=== PATIENT | male | born 1950 | race Caucasian/White ===

== ENCOUNTER → 2016-12-23 | Outpatient (REF) | payer MEDICARE ==
[~2016-12-23] MED LIST: DARV100T OR; FURO40TA2 OR; IBUP800T OR; NABU750T OR; SILD25TA OR
== END ==
LOC: M SFHCADAM 14:14
PROVIDERS: ATTEND Physician Assistant Medical
DX: R73.01 Impaired fasting glucose (principal); E66.01 Morbid (severe) obesity due to excess calories; R60.1 Generalized edema; M54.5 Low back pain; Z53.9 Procedure and treatment not carried out, unspecified reason

== ENCOUNTER → 2017-01-20 | Outpatient (REF) | payer MEDICARE ==
[2017-01-20 13:00] LABS: BASO % 0.4 % (0.0-1.0); EOS # 0.2 K/mm3 (0.0-0.50); EOS % 3.3 % (0.0-3.0); LARGE UNSTAINED CELL # 0.1 K/mm3 (0.0-0.4); LYMPH # 1.8 K/mm3 (1.5-4.5); LYMPH % 29.6 % (24.0-44.0); MEAN CORPUSCULAR HEMOGLOBIN 32.1 pg (27.0-33.0); MEAN CORPUSCULAR HGB CONC 33.6 g/dl (32.0-36.5); MEAN CORPUSCULAR VOLUME 95.6 fl (80.0-96.0); MONO # 0.5 K/mm3 (0.0-0.8); MONO % 8.4 % (0.0-5.0); NEUTROPHILS # 3.1 K/mm3 (1.8-7.7); NEUTROPHILS % 56.3 % (36.0-66.0); PLATELET COUNT, AUTOMATED 257 k/mm3 (150-450); RED CELL DISTRIBUTION WIDTH 13.3 % (11.5-14.5); WHITE BLOOD COUNT 5.6 K/mm3 (4.0-10.0)
[2017-01-20 13:37] LABS: ALBUMIN 3.7 GM/DL (3.2-5.2); ALBUMIN/GLOBULIN RATIO 1.19 (1.00-1.93); ALKALINE PHOSPHATASE 167 U/L (45-117); ALT/SGPT 44 U/L (12-78); ANION GAP 8 MEQ/L (8-16); AST/SGOT 16 U/L (15-37); BILIRUBIN,TOTAL 0.4 MG/DL (0.2-1.0); BLOOD UREA NITROGEN 13 MG/DL (7-18); CALCIUM LEVEL 8.6 MG/DL (8.8-10.2); CARBON DIOXIDE LEVEL 27 MEQ/L (21-32); CHLORIDE LEVEL 99 MEQ/L (98-107); CREATININE FOR GFR 0.71 MG/DL (0.70-1.30); GLOMERULAR FILTRATION RATE > 60.0 (>49); GLUCOSE, FASTING 217 MG/DL (80-110); POTASSIUM SERUM 4.3 MEQ/L (3.5-5.1); SODIUM LEVEL 134 MEQ/L (136-145); TOTAL PROTEIN 6.8 GM/DL (6.4-8.2)
== END ==
LOC: M SFHCADAM 09:01
PROVIDERS: ATTEND Physician Assistant Medical
DX: R73.01 Impaired fasting glucose (principal); E66.01 Morbid (severe) obesity due to excess calories; R60.1 Generalized edema; M54.5 Low back pain

== ENCOUNTER → 2017-03-17 | Outpatient (REF) | payer MEDICARE | LOC: M LABDRWAD 09:52 | PROVIDERS: ATTEND Urology | DX: C61 Malignant neoplasm of prostate (principal) ==

== ENCOUNTER → 2017-09-23 | Outpatient (REF) | payer MEDICARE, OTHER ==
[2017-09-23 20:15] LABS: PROSTATIC SPECIFIC AG MONITOR 0.75 NG/ML (< 4.0)
== END ==
LOC: M LABDRWAD 19:26
DX: C67.2 Malignant neoplasm of lateral wall of bladder (principal)
CPT/HCPCS: 84153

== ENCOUNTER → 2018-01-05 | Outpatient (REF) | payer MEDICARE | LOC: M SFHCADAM 15:38 | DX: E11.9 Type 2 diabetes mellitus without complications (principal); E78.2 Mixed hyperlipidemia; Z53.8 Procedure and treatment not carried out for other reasons ==

== ENCOUNTER → 2018-02-18 | Outpatient (REF) | payer MEDICARE | LOC: M SFHCADAM 08:33 | DX: E11.9 Type 2 diabetes mellitus without complications (principal); I10 Essential (primary) hypertension; E78.2 Mixed hyperlipidemia ==

== ENCOUNTER → 2018-02-19 | Outpatient (REF) | payer MEDICARE ==
[2018-02-19 12:54] LABS: BASO % 0.4 % (0.0-1.0); EOS # 0.2 10^3/uL (0.0-0.50); EOS % 2.2 % (0.0-3.0); HEMATOCRIT 42.5 % (42.0-52.0); HEMOGLOBIN 14.3 g/dl (13.5-17.5); IMMATURE GRANULOCYTE % 0.4 % (0-3.0); LYMPH # 1.2 10^3/uL (1.5-4.5); LYMPH % 16.2 % (24.0-44.0); MEAN CORPUSCULAR HEMOGLOBIN 31.6 pg (27.0-33.0); MEAN CORPUSCULAR HGB CONC 33.6 g/dl (32.0-36.5); MONO # 0.8 10^3/uL (0.0-0.8); MONO % 11.3 % (0.0-5.0); NEUTROPHILS # 5.1 10^3/uL (1.8-7.7); NEUTROPHILS % 69.5 % (36.0-66.0); PLATELET COUNT, AUTOMATED 248 10^3/uL (150-450); RED BLOOD COUNT 4.52 10^6/uL (4.30-6.10); RED CELL DISTRIBUTION WIDTH 12.1 % (11.5-14.5); WHITE BLOOD COUNT 7.4 10^3/uL (4.0-10.0)
[2018-02-19 13:44] LABS: ALBUMIN 3.8 GM/DL (3.2-5.2); ALBUMIN/GLOBULIN RATIO 1.27 (1.00-1.93); ALKALINE PHOSPHATASE 89 U/L (45-117); ALT/SGPT 57 U/L (12-78); ANION GAP 8 MEQ/L (8-16); AST/SGOT 22 U/L (7-37); BILIRUBIN,TOTAL 0.3 MG/DL (0.2-1.0); BLOOD UREA NITROGEN 18 MG/DL (7-18); CALCIUM LEVEL 8.9 MG/DL (8.8-10.2); CARBON DIOXIDE LEVEL 27 MEQ/L (21-32); CHLORIDE LEVEL 104 MEQ/L (98-107); CHOLESTEROL LEVEL 133 MG/DL (<200); CREATININE FOR GFR 0.83 MG/DL (0.70-1.30); GLOMERULAR FILTRATION RATE > 60.0 (>49); GLUCOSE, FASTING 126 MG/DL (70-100); HDL CHOLESTEROL 48 MG/DL (>40); MALB URINE SIEMENS 23.6 MG/L; MAU/CREAT RATIO 16.8 MCG/MG (0.0-30.0); NON-HDL-C 85 MG/DL; POTASSIUM SERUM 4.9 MEQ/L (3.5-5.1); SODIUM LEVEL 139 MEQ/L (136-145); TOTAL PROTEIN 6.8 GM/DL (6.4-8.2); TRIGLYCERIDES LEVEL 95 MG/DL (<150)
[2018-02-19 15:34] LABS: ESTIMATED AVERAGE GLUCOSE 160 MG/DL (60-110); HEMOGLOBIN A1c 7.2 %
== END ==
LOC: M SFHCADAM 12:46
DX: E11.9 Type 2 diabetes mellitus without complications (principal); E78.2 Mixed hyperlipidemia
CPT/HCPCS: 84443

== ENCOUNTER → 2018-02-24 | Outpatient (CLI) | payer MEDICARE | LOC: M ADAMS 15:51 | DX: M19.012 Primary osteoarthritis, left shoulder (principal); M25.712 Osteophyte, left shoulder; M25.512 Pain in left shoulder | CPT/HCPCS: 73030 ==

== ENCOUNTER → 2018-03-20 | Outpatient (REF) | payer MEDICARE | LOC: M SFHCPLAZ 15:41 | DX: D22.39 Melanocytic nevi of other parts of face (principal) | CPT/HCPCS: 88305 ==

== ENCOUNTER → 2018-07-06 | Outpatient (REF) | payer MEDICARE ==
[2018-07-06 13:07] LABS: ALBUMIN 3.7 GM/DL (3.2-5.2); ALT/SGPT 50 U/L (12-78); BILIRUBIN,TOTAL 0.3 MG/DL (0.2-1.0); BLOOD UREA NITROGEN 14 MG/DL (7-18); CALCIUM LEVEL 8.5 MG/DL (8.8-10.2); CARBON DIOXIDE LEVEL 28 MEQ/L (21-32); CHLORIDE LEVEL 104 MEQ/L (98-107); CHOLESTEROL LEVEL 153 MG/DL (<200); CREATININE FOR GFR 0.72 MG/DL (0.70-1.30); GLOMERULAR FILTRATION RATE > 60.0 (>49); GLUCOSE, FASTING 130 MG/DL (70-100); HDL CHOLESTEROL 51 MG/DL (>40); LDL CHOLESTEROL 81 MG/DL (<100); NON-HDL-C 102 MG/DL; POTASSIUM SERUM 4.8 MEQ/L (3.5-5.1); SODIUM LEVEL 140 MEQ/L (136-145); TOTAL PROTEIN 6.5 GM/DL (6.4-8.2); TRIGLYCERIDES LEVEL 103 MG/DL (<150)
[2018-07-06 14:07] LABS: HEMOGLOBIN A1c 8.4 %
== END ==
LOC: M SFHCADAM 08:33
PROVIDERS: ATTEND Physician Assistant Medical
DX: E11.9 Type 2 diabetes mellitus without complications (principal); E78.2 Mixed hyperlipidemia

== ENCOUNTER → 2018-12-07 | Outpatient (REF) | payer MEDICARE | LOC: M LAB REF 12:22 | PROVIDERS: ATTEND Urology | DX: Z12.5 Encounter for screening for malignant neoplasm of prostate (principal); C67.2 Malignant neoplasm of lateral wall of bladder ==

== ENCOUNTER → 2019-02-15 | Outpatient (REF) | payer MEDICARE, SELFPAY ==
[2019-02-15 12:27] LABS: BASO % 0.3 % (0.0-1.0); EOS # 0.2 10^3/uL (0.0-0.50); EOS % 1.9 % (0.0-3.0); HEMATOCRIT 42.4 % (42.0-52.0); LYMPH # 1.3 10^3/uL (1.5-4.5); MEAN CORPUSCULAR HEMOGLOBIN 30.6 pg (27.0-33.0); MEAN CORPUSCULAR VOLUME 92.8 fl (80.0-96.0); MONO # 0.9 10^3/uL (0.0-0.8); MONO % 9.2 % (0.0-5.0); NEUTROPHILS # 7.6 10^3/uL (1.8-7.7); PLATELET COUNT, AUTOMATED 285 10^3/uL (150-450); RED BLOOD COUNT 4.57 10^6/uL (4.30-6.10); WHITE BLOOD COUNT 10.1 10^3/uL (4.0-10.0)
[2019-02-15 13:03] LABS: ALBUMIN 3.8 GM/DL (3.2-5.2); ALT/SGPT 45 U/L (12-78); BILIRUBIN,TOTAL 0.3 MG/DL (0.2-1.0); BLOOD UREA NITROGEN 13 MG/DL (7-18); CARBON DIOXIDE LEVEL 28 MEQ/L (21-32); CHLORIDE LEVEL 105 MEQ/L (98-107); CHOLESTEROL LEVEL 152 MG/DL (<200); CREATININE FOR GFR 0.76 MG/DL (0.70-1.30); GLOMERULAR FILTRATION RATE > 60.0 (>49); GLUCOSE, FASTING 148 MG/DL (70-100); HDL CHOLESTEROL 51 MG/DL (>40); LDL CHOLESTEROL 74 MG/DL (<100); NON-HDL-C 101 MG/DL; POTASSIUM SERUM 4.7 MEQ/L (3.5-5.1); SODIUM LEVEL 139 MEQ/L (136-145); TOTAL PROTEIN 6.7 GM/DL (6.4-8.2); TRIGLYCERIDES LEVEL 136 MG/DL (<150)
[2019-02-15 13:14] LABS: CREATININE, URINE 26.9 MG/DL; MALB URINE SIEMENS < 5.0 MG/L; MAU/CREAT RATIO 18.5 MCG/MG (0.0-30.0)
[2019-02-15 13:45] LABS: HEMOGLOBIN A1c 7.9 %
== END ==
LOC: M SFHCADAM 09:56
PROVIDERS: ATTEND Physician Assistant Medical
DX: E11.9 Type 2 diabetes mellitus without complications (principal); I10 Essential (primary) hypertension; E78.2 Mixed hyperlipidemia

== ENCOUNTER → 2019-12-20 | Outpatient (REF) | payer MEDICARE | LOC: M LABDRWAD 16:51 | PROVIDERS: ATTEND Urology | DX: C67.2 Malignant neoplasm of lateral wall of bladder (principal) ==

== ENCOUNTER → 2020-03-02 | Outpatient (REF) | payer MEDICARE ==
[2020-03-02 18:17] LABS: BASO % 0.3 % (0.0-1.0); EOS # 0.2 10^3/uL (0.0-0.5); EOS % 1.9 % (0.0-3.0); HEMATOCRIT 45.8 % (42.0-52.0); HEMOGLOBIN 15.3 g/dl (13.5-17.5); LYMPH # 1.2 10^3/uL (1.5-5.0); LYMPH % 14.4 % (24.0-44.0); MEAN CORPUSCULAR HEMOGLOBIN 32.5 pg (27.0-33.0); MEAN CORPUSCULAR HGB CONC 33.4 g/dl (32.0-36.5); MEAN CORPUSCULAR VOLUME 97.2 fl (80.0-96.0); MONO # 0.9 10^3/uL (0.0-0.8); MONO % 10.5 % (0.0-5.0); NEUTROPHILS # 6.2 10^3/uL (1.5-8.5); NEUTROPHILS % 72.2 % (36.0-66.0); PLATELET COUNT, AUTOMATED 295 10^3/uL (150-450); RED BLOOD COUNT 4.71 10^6/uL (4.30-6.10); WHITE BLOOD COUNT 8.6 10^3/uL (4.0-10.0)
[2020-03-02 18:46] LABS: CREATININE, URINE 87.3 MG/DL; MALB URINE SIEMENS 9.2 MG/L; MAU/CREAT RATIO 10.5 MCG/MG (0.0-30.0)
[2020-03-02 18:50] LABS: ALBUMIN 3.8 GM/DL (3.2-5.2); ALT/SGPT 45 U/L (12-78); BILIRUBIN,TOTAL 0.3 MG/DL (0.2-1.0); BLOOD UREA NITROGEN 18 MG/DL (7-18); CALCIUM LEVEL 8.8 MG/DL (8.8-10.2); CARBON DIOXIDE LEVEL 27 MEQ/L (21-32); CHLORIDE LEVEL 103 MEQ/L (98-107); CHOLESTEROL LEVEL 251 MG/DL (<200); CHOLESTEROL RISK RATIO 5.976 (<5); CREATININE FOR GFR 1.09 MG/DL (0.70-1.30); GLOMERULAR FILTRATION RATE > 60.0 (>42); GLUCOSE, FASTING 353 MG/DL (70-100); HDL CHOLESTEROL 42 MG/DL (>40); LDL CHOLESTEROL 139 MG/DL (<100); NON-HDL-C 209 MG/DL; POTASSIUM SERUM 4.6 MEQ/L (3.5-5.1); SODIUM LEVEL 136 MEQ/L (136-145); TRIGLYCERIDES LEVEL 351 MG/DL (<150)
[2020-03-02 19:46] LABS: HEMOGLOBIN A1c 9.6 %
== END ==
LOC: M LABDRWAD 15:45
PROVIDERS: ATTEND Physician Assistant Medical
DX: E11.9 Type 2 diabetes mellitus without complications (principal); I10 Essential (primary) hypertension

== ENCOUNTER → 2020-03-31 | Outpatient (CLI) | payer MEDICARE ==
--- NOTE | 2020-04-10 09:57 | REP ---
RIGHT HIP SERIES: 2-VIEWS HISTORY: Right hip pain. FINDINGS: AP and frog leg views of the right hip demonstrate chondrocalcinosis and mild acetabular spurring consistent with osteoarthritis. There is also tendon insertion site spurring of the greater trochanter. No bony erosive change is seen. The visualized right hemipelvis is intact. IMPRESSION: Right hip osteoarthritis. Chondrocalcinosis. Tendon insertion site spurring on the greater trochanter. MTDD
== END ==
LOC: M ADAMS 09:32
PROVIDERS: ATTEND Family Medicine
DX: M16.11 Unilateral primary osteoarthritis, right hip (principal); M11.251 Other chondrocalcinosis, right hip; M25.551 Pain in right hip

== ENCOUNTER → 2020-04-20 | Outpatient (REF) | payer MEDICARE ==
[2020-04-21 13:11] LABS: BASO % 0.5 % (0.0-1.0); EOS # 0.2 10^3/uL (0.0-0.5); EOS % 2.5 % (0.0-3.0); HEMATOCRIT 44.5 % (42.0-52.0); HEMOGLOBIN 14.5 g/dl (13.5-17.5); LYMPH # 1.1 10^3/uL (1.5-5.0); MEAN CORPUSCULAR HEMOGLOBIN 31.5 pg (27.0-33.0); MEAN CORPUSCULAR HGB CONC 32.6 g/dl (32.0-36.5); MEAN CORPUSCULAR VOLUME 96.5 fl (80.0-96.0); MONO # 0.8 10^3/uL (0.0-0.8); MONO % 10.6 % (0.0-5.0); NEUTROPHILS # 5.4 10^3/uL (1.5-8.5); NEUTROPHILS % 70.7 % (36.0-66.0); PLATELET COUNT, AUTOMATED 337 10^3/uL (150-450); RED BLOOD COUNT 4.61 10^6/uL (4.30-6.10); WHITE BLOOD COUNT 7.6 10^3/uL (4.0-10.0)
[2020-04-21 13:42] LABS: C REACTIVE PROTEIN QUANTITATIV 0.52 MG/DL (0.00-0.30); RHEUMATOID FACTOR QUANT < 10.0 IU/ML (<15.0)
[2020-04-21 13:52] LABS: ERYTHROCYTE SEDIMENTATION RATE 8 mm/hr (0-20)
[2020-04-22 17:06] LABS: ANTINUCLEAR ANTIBODIES DIRECT Negative (Negative); Lyme Disease IgG/IgM Antibodie <0.91 ISR (0.00-0.90); Lyme Disease IgM Ab Quantitati <0.80 index (0.00-0.79)
== END ==
LOC: M SFHCADAM 15:21
PROVIDERS: ATTEND Family Medicine
DX: M19.90 Unspecified osteoarthritis, unspecified site (principal); Z79.899 Other long term (current) drug therapy

== ENCOUNTER → 2020-07-07 | Outpatient (REF) | payer MEDICARE | LOC: M SFHCADAM 12:27 | PROVIDERS: ATTEND Physician Assistant Medical | DX: J34.89 Other specified disorders of nose and nasal sinuses (principal); Z11.52 Encounter for screening for COVID-19 ==

== ENCOUNTER → 2020-09-05 | Outpatient (REF) | payer MEDICARE ==
[2020-09-05 18:56] LABS: HEMOGLOBIN A1c 7.7 %
== END ==
LOC: M PLALAB 16:43 → M LAB REF 16:43
PROVIDERS: ATTEND Nurse Practitioner Adult Health
DX: E11.9 Type 2 diabetes mellitus without complications (principal); M25.551 Pain in right hip

== ENCOUNTER → 2021-01-02 | Outpatient (REF) | payer MEDICARE | LOC: M LABDRWAD 12:35 | PROVIDERS: ATTEND Urology | DX: C67.2 Malignant neoplasm of lateral wall of bladder (principal); R97.20 Elevated prostate specific antigen [PSA] ==

== ENCOUNTER → 2021-03-16 | Outpatient (CLI) | payer MEDICARE ==
--- NOTE | 2021-03-16 16:41 | REP ---
INDICATION: RT HIP OSTEOARTHRITIS. COMPARISON: He has 03/31/2020 TECHNIQUE: AP and frog-lateral views. FINDINGS: Since the last examination advanced asymmetric joint space narrowing has developed. In addition, there is new femoral head flattening superolaterally. There is a 2.3 cm sized subchondral area of rarefication also representing a change from the prior exam. The femoral head appears superolaterally subluxed. IMPRESSION: New right hip abnormalities as described above. There is evidence of a large geode seen versus AVN in an acute or subacute stage. This needs to be correlated clinically. Consider follow-up with MRI. <Electronically signed by Channing Oliveira > 03/16/21 3509
== END ==
LOC: M SOG 15:35
PROVIDERS: ATTEND Orthopaedic Surgery Sports Medicine
DX: R93.7 Abnormal findings on diagnostic imaging of other parts of musculoskeletal system (principal); M16.11 Unilateral primary osteoarthritis, right hip

== ENCOUNTER → 2021-03-20 | Outpatient (REF) | payer MEDICARE ==
[2021-03-20 19:28] LABS: BASO % 0.3 % (0.0-1.0); EOS # 0.1 10^3/uL (0.0-0.5); EOS % 1.4 % (0.0-3.0); HEMATOCRIT 40.3 % (42.0-52.0); HEMOGLOBIN 12.8 g/dl (13.5-17.5); LYMPH # 1.4 10^3/uL (1.5-5.0); LYMPH % 15.1 % (24.0-44.0); MEAN CORPUSCULAR HGB CONC 31.8 g/dl (32.0-36.5); MEAN CORPUSCULAR VOLUME 94.4 fl (80.0-96.0); MONO # 1.2 10^3/uL (0.0-0.8); MONO % 13.2 % (2.0-8.0); NEUTROPHILS # 6.5 10^3/uL (1.5-8.5); NEUTROPHILS % 69.4 % (36.0-66.0); PLATELET COUNT, AUTOMATED 358 10^3/uL (150-450); RED BLOOD COUNT 4.27 10^6/uL (4.30-6.10); WHITE BLOOD COUNT 9.3 10^3/uL (4.0-10.0)
[2021-03-20 19:40] LABS: HEMOGLOBIN A1c 7.2 %
[2021-03-20 19:46] LABS: POTASSIUM SERUM 4.8 MEQ/L (3.5-5.1)
== END ==
LOC: M LABDRWAD 18:39
PROVIDERS: ATTEND Orthopaedic Surgery
DX: M16.11 Unilateral primary osteoarthritis, right hip (principal); Z79.899 Other long term (current) drug therapy

== ENCOUNTER → 2021-04-03 | Outpatient (CLI) | payer MEDICARE ==
--- NOTE | 2021-04-03 16:21 | REP ---
INDICATION: OSTEOARTHRITIS. COMPARISON: None. TECHNIQUE: AP and lateral views of the pelvis FINDINGS: Right hip demonstrates early advanced degenerative changes including subchondral sclerosis/heterogeneity with small cystic changes and complete loss of the superior joint space with subtle chronic flattening to the femoral head. Lateral view also demonstrates advanced multilevel degenerative changes to the lumbar spine with osteophytosis, endplate sclerosis, hypertrophic facet changes and disc space narrowing. Alignment is maintained. No obvious acute fracture/compression injury. IMPRESSION: Degenerative changes primarily involving the right hip and lumbar spine. <Electronically signed by Efrain Harmon > 04/03/21 1242
== END ==
LOC: M SOG 11:58
PROVIDERS: ATTEND Orthopaedic Surgery
DX: M16.11 Unilateral primary osteoarthritis, right hip (principal)

== ENCOUNTER → 2021-05-04 | Outpatient (CLI) | payer MEDICARE ==
[~2021-05-04] MED LIST changes: +ACET32TAB PO; +APAP325T4 PO; +BIOT1TAB PO; +CHRO400T4 PO; +CIDA500T2 PO; +CINN500C15 PO; +CLAR10CA3 PO; +D31000TA2 PO; +ECOT81TA5 PO; +FLUTISP OU; +GLIP5TAB8 PO; +LISI-898 PO; +MAGN1CAP PO; +METF10004 PO; +OXYC1TAB23; +RA T500C2 PO; +RANI15TA PO; +SIMV40TA20 PO; +TAMS1CAP17 PO; +VITATAB64 PO; +ZINC1TAB2 PO
--- NOTE | 2021-05-04 18:05 | REP ---
INDICATION: RT HIP PAIN. COMPARISON: Hip and pelvis radiographs 03/16/2021, 04/03/2021 TECHNIQUE: Leadership Development Manager image of the pelvis through the mid tibia in AP and lateral projections. Axial soft tissue and bone window settings the through the pelvis with coronal and sagittal reconstructions. Soft tissue and bone window axial images with coronal and sagittal reconstructions through the knees. (Mauro protocol). FINDINGS: NON OSSEOUS PELVIS: Small bowel loops fluid-filled and not dilated diverticulosis distal left colon and sigmoid without diverticulitis. Bladder only partially filled but without mass or stone. No ventral or inguinal hernia. No pelvic lymphadenopathy or free fluid prostate with calcifications in indenting the bladder base no ventral or inguinal hernia nor pathologic sized inguinal adenopathy. OSSEOUS PELVIS: There is severe osteoarthritis of the right hip with [id number] appearance. Large subchondral cysts and flattening of femoral head with smaller cysts in the acetabulum at its roof and posterior margin. Few mm of the lateral subluxation with uncovering of portion of the femoral head. Femoral neck and trochanteric region as well as proximal shaft were intact. The left hip shows minimal narrowing of the joint space and small rim osteophyte acetabular roof and femoral condyle there are only a few tiny subchondral cysts in the anterior acetabular column. No AVN or fracture on the left. Pubic symphysis, pubic rami, SI joints, iliac bones and sacrum without fracture or destructive lesion. Bilateral total knee arthroplasty is are seen the it network architect image. Distances for surgical planning may be measured on the it network architect image. IMPRESSION: 1. Severe osteoarthritic changes the right hip with [id number]-[id number] appearance and extensive subchondral cysts and flattening of the femoral head consistent with some degree of avascular necrosis. No intra-articular bone fragments are identified but irregular osteophyte formation seen. Superior subchondral cysts in the acetabulum and a few in the anterior and posterior column as well. 2. Left hip with mild degenerative changes, age-appropriate. 3. Bilateral total knee arthroplasty. Leadership Development Manager image frontal and CIS lateral projections allowed for measurement of femur length and other information necessary for surgical planning. <Electronically signed by Joe Pa > 05/04/21 2448
== END ==
LOC: M RAD 16:14
PROVIDERS: ATTEND Orthopaedic Surgery
DX: M16.11 Unilateral primary osteoarthritis, right hip (principal); Z96.653 Presence of artificial knee joint, bilateral

== ENCOUNTER → 2021-05-11 | Outpatient (CLI) | payer MEDICARE | LOC: M LABSMTC 11:23 | PROVIDERS: ATTEND Anesthesiology | DX: Z01.818 Encounter for other preprocedural examination (principal); Z11.52 Encounter for screening for COVID-19 ==

== ENCOUNTER 2021-05-16 06:08 | Day surgery (SDC) | payer MEDICARE ==
[~2021-05-16] VITALS: Ht 175.3 cm; Wt 107.5 kg
[2021-05-16] VITALS (8 sets, daily range): BP systolic 14–146; BP diastolic 64–93
[~2021-05-16 06:08] MED LIST changes: +**UNRESOLVED NON-FORMULARY MED ORDER XX SCH; +CelecoXIB (CeleBREX) 100 MG CAP PO SCH; +FLUTISP NARES; -FLUTISP OU; +GABAPENTIN 100 MG CAP PO SCH; +LR 1,000 ML IV ONE; -OXYC1TAB23; +OXYC1TAB23 PO; +ceFAZolin SOD 2 GM in IV 1 EA IV SCH
--- OUTSIDE RECORDS SUMMARY | 2021-05-16 06:12 | CCD ---
Author Author [employer] Organization [employer] Address Unknown Phone Unavailable Care Team Providers Care Concrete Sculptor Name Role Phone Melvin Pelayo Unavailable PROBLEMS Type Condition ICD9-CM Code [id number] Code Onset Dates Condition S tatus W/U Status Risk SNOMED Code Notes Problem Chronic low back pain M54.5 Active confirmed 456006537 Problem History of bladder cancer Z85.51 Active confirmed 403459885 Problem Other chronic pain G89.29 Active confirmed 8 0920227 Problem Generalized edema R60.1 Active confirmed 27 4228894 Problem Type 2 diabetes mellitus wit hout complication, without long-term current use of insulin E11.9 Active confirmed 602819711 Problem Hip arthritis M16.10 Active confirmed 577149 06 Problem Morbid obesity due to excess calories E66.01 Ac tive confirmed 272571935 Problem Seasonal allergies J30.2 Active confirmed 4 60149930 Problem Arthritis M19.90 Active confirmed 8624749 Problem Essential hypertension I10 Active confirmed 89022808 Problem Mixed hyperlipidemia E78.2 Active confirmed 434052011 Problem Acrochordon L91.8 Active confirmed 82469549 2 Problem Seborrheic keratoses L82.1 Active confirmed 859306898 ALLERGIES Allergen (clinical drug ingredient) Drug/Non Drug Allergy do cumented on EMR Reaction Allergy Type Onset Date Status Codeine Phosphate (For Allergies Use Only) Unknown Drug Allergy Active ENCOUNTERS from 1950 to 2021-05-15 Encounter Location Date Provider Diagnosis [facility] [address] [facility] [phone] [place] [address] 10 Apr, 2021 Melvin Pelayo Pre-op exam Z01.818 ; Type 2 diabetes mellitus without complication, without long-term current use of insulin E11.9 and Hip arthritis M16.10 IMMUNIZATIONS Vaccine Route Administration Date Status Influenza (High Dose 65 & up) IM Intramuscular Apr 22, 2017 A dministered Influenza (High Dose 65 & up) IM Intramuscular Apr 11, 2016 A dministered Pneumococcal Adult 0.5mL Pneumovax 23 IM Intramuscular Jul 15 018 Administered TDAP 0.5mL (Boostrix) IM Intramuscular January 02, 2016 Administe red TDAP 0.5mL (Boostrix) Unknown Jul 04, 2004 Administer ed Pneumococcal 0.5mL Prevnar 13 IM Intramuscular September 23, 2016 A dministered SOCIAL HISTORY Sex Assigned At : Social History Observation Description Sex Assigned At Unknown Education: Question Answer Notes Level of Education: Patient declines to answer Audit Question Answer Notes Total Score: 1 Interpretation: Alcohol Education Language: Question Answer Notes Languages spoken: Gibraltarian Faith: Question Answer Notes Faith 06 Scientologist Sexual Hx: Question Answer Notes Had sex in the last 12 months (vaginal, oral, or anal)? Yes with Women only Use protection? No Drug and Alcohol Question Answer Notes Total Score: 0 Interpretation: No problems reported BMI Care Goal Follow-Up Question Answer Notes Above Normal BMI Follow-Up Dietary management educatio n, guidance, and counseling REASON FOR REFERRAL No Information VITAL SIGNS Weight 238.4 lbs Apr, Height 5'9" in Apr, BMI 35.20 kg/m2 Apr, Heart Rate 84 /min Apr, Respiratory Rate 18 /min Apr, Temperature 96.1 degrees Fahrenheit Apr, Oximetry 99 Apr, Blood pressure systolic 104 mm Hg Apr, Blood pressure diastolic 67 mm Hg Apr, MEDICATIONS Medication SIG (Take, Route, Frequency, Duration) Notes Start Da te End Date Status Vitamin D3 10 MCG (400 UNIT) 1 tablet Orally Once a day for 30 day(s) UNSURE OF DOSE - OTC Active metFORMIN HCl 1000 1 tablet with meals Orally Twice a day for 90 Active Lisinopril 5 MG 2 tablets Orally twice daily for 90 Active Viagra 50 MG 1 tablet as needed Orally Once a day for 30 day(s) Active Glucosamine 500 MG 1 capsule with a meal Orally Twice a day UNSURE OF DOSE - OTC Active traMADol-Acetaminophen 37.5-325 MG 2 tablets as needed Orally every 8 hrs as needed MDD 6 for 30 days Sep, Not-Reji ing Amoxicillin 875 MG 1 tablet Orally every 12 hrs for 14 day(s) Sep, Not-Taking Ibuprofen 200 MG 2 tablet with food or milk as needed Ora lly Three times a day Active Chromium 50 MCG as directed Orally UNSURE OF DOSE - OTC Active Amoxicillin-Pot Clavulanate 875-125 MG 1 tablet Orally every 12 hrs for 10 day(s) Jan, Not-Taking Magnesium 300 MG 1 capsule with a meal Orally Once a day for 30 day(s) UNSURE OF DOSE - OTC Active Fluticasone Propionate 50 MCG/ACT 1 spray in each nost ril Nasally Once a day for 30 Not-Taking FreeStyle Lancets - as directed DX:E11.9 three times daily for 30 day s Active glipiZIDE 5 MG TAKE 1 TABLET BY MOUTH EVERY DAY 30 MINUTES BEFORE BREAKFAST for 90 Active FreeStyle Lite Test - as directed DX:E11.9 three times daily for 30 d ays Active predniSONE 20 MG 1 tablet Orally Once a day for 10 day(s) Jan, Not-Taking Simvastatin 40 MG 1 tablet in the evening Orally Once a day for 90 da ys Active Nabumetone 750 MG 1 tablet Orally Twice a day for 90 Not-Taking FreeStyle Lite - as directed DX:E11.9 once daily for 100 days Jun, Active One touch ultra blue Misc 1 strip _ E11.9, 2-3 times daily Active Doxycycline Monohydrate 100 MG 1 tablet Orally Twice a day for 7 days Apr, Not-Taking Zinc 25 MG 1 tablet Orally Once a day for 30 day(s) UNSURE OF DOSE - OTC Active FreeStyle Lancets - USE DIRECTED THREE TIMES A DAY for 66 Active Fluticasone Propionate 50 MCG/ACT 1 spray in each nost ril Nasally Once a day for 30 day(s) Twice a day for first week then daily Mar, Active FreeStyle Lite Test - USE DIRECTED THREE TIMES A DAY for 66 Active Lasix 40 MG 1 tablet Orally Once a day as needed for 90 days Active Tamsulosin HCl 0.4 MG 1 capsule Orally Once a day for 90 days Active oxyCODONE-Acetaminophen 5-325 MG 1-2 tablet as needed Orally every 6 hrs for 30 days Apr, Active PROCEDURES No Information RESULTS No Results REASON FOR VISIT right total hip arthroplasty MEDICAL (GENERAL) HISTORY Type Description Date Medical History arthritis- low back, hands, feet Medical History morbid obesity Medical History DM2, 2018 last eye exam Medical History h/o cuca dep Medical History h/o adenocarcinoma of the bladder 2012 - Uro Medical History BPH Medical History HTN, 07/18 EKG SR, borderline T wave abn. Medical History hyperlipidemia Surgical History Right knee arthroscopy & reconstruction 1973,1982, & 199102/23/1974 Surgical History Bladder resection 07/20/2013 Surgical History Right testicular hydrocele repair 009 Surgical History Right total knee replacement 09/24/2010 Surgical History Left total knee replacement 10/08/2011 Surgical History Teeth extraction X2 2019 Goals Section No Information Health Concerns No Information MEDICAL EQUIPMENT No Information MENTAL STATUS No Information FUNCTIONAL STATUS No Information ASSESSMENTS Encounter Date Diagnosis Assessment Notes Treatment Notes Treatm ent Clinical Notes Apr, Pre-op exam (ICD-10 - Z01.818) Patient preop for Right total hip arthroplasty. Cardiovascular: Able to perform 4 METS without any symptoms, chest pain, shortness of breath. Patient's overal cardiac risk low and surgery low cardiac risk. No further recommendations at this time. Respiratory: No history of asthma/ COPD, inhaler use. No further recommendations at this time. Renal: No history of chronic kidney disease/ renal disease. No further recommendations at this time. Pysch: Denies any feeling down/ depressed, loss of interest. No history of depression. No further recommendations at this time. Medications: Discussed holding lisinopril, glipizide, metformin and lasix the day of surgery. Hold viagra a couple days prior to surgery. Unless otherwise noted by surgeon. No further recommendations at this time. Labs/ tests: Had CBC and CMP performed. Hgb stable, 13.2, no anemia at this time. Creatinine stable, 0.86. Electrolytes within normal limits. No further recommendations at this time. Chronic pain: Is on oxycodone/ aceteminophen for chronic hip pain. Continue with medication at this time. May need to monitor pain following surgery. No further recommendations at this time. Patient has been optimized for sugery at this time. Apr, Type 2 diabetes mellitus wit hout complication, without long-term current use of insulin (ICD-10 - E11.9) A1c is 7.2%. Continue current treatment plan at this time. Monitoring diet after June. If he can avoid or have snack with low carbohydrate content may help with evening sugar levels. If eating sugar levels do not improve may consider adjusting medication by adding half glipizide tablet in the evening. Continue current diet otherwise. Continue otherwise current medication. Goal may be 7% for surgery per surgeon. Apr, Hip arthritis (ICD-10 - M16.10) Continue using oxycodone 1 to 2 tablets as needed for pain. Has surgery scheduled. Discussed to taper lower after surgery. PLAN OF TREATMENT Medication Medication Name Sig Start Date Stop Date Tamsulosin HCl 0.4 MG 1 capsule Orally Once a day for 90 days oxyCODONE-Acetaminophen 5-325 MG 1-2 tablet as needed Orally every 6 hrs for 30 days Apr, FreeStyle Lite Test - as directed DX:E11.9 three times daily for 30 days FreeStyle Lancets - as directed DX:E11.9 three times daily for 3 0 days Treatment Notes Assessment Notes Clinical Notes Pre-op exam Patient preop for Ri ght total hip arthroplasty.Cardiovascular: Able to perform 4 METS without any symptoms, chest pain, shortness of breath. Patient's overal cardiac risk low and surgery low cardiac risk. No further recommendations at this time.Respiratory: No history of asthma/ COPD, inhaler use. No further recommendations at this time.Renal: No history of chronic kidney disease/ renal disease. No further recommendations at this time.Pysch: Denies any feeling down/ depressed, loss of interest. No history of depression. No further recommendations at this time.Medications: Discussed holding lisinopril, glipizide, metformin and lasix the day of surgery. Hold viagra a couple days prior to surgery. Unless otherwise noted by surgeon. No further recommendations at this time.Labs/ tests: Had CBC and CMP performed. Hgb stable, 13.2, no anemia at this time. Creatinine stable, 0.86. Electrolytes within normal limits. No further recommendations at this time.Chronic pain: Is on oxycodone/ aceteminophen for chronic hip pain. Continue with medication at this time. May need to monitor pain following surgery. No further recommendations at this time.Patient has been optimized for sugery at this time. Type 2 diabetes mellitus without complic ation, without long-term current use of insulin A1c is 7.2%. Continue curre nt treatment plan at this time. Monitoring diet after June. If he can avoid or have snack with low carbohydrate content may help with evening sugar levels. If eating sugar levels do not improve may consider adjusting medication by adding half glipizide tablet in the evening. Continue current diet otherwise. Continue otherwise current medication. Goal may be 7% for surgery per surgeon. Hip arthritis Continue using oxyco done 1 to 2 tablets as needed for pain. Has surgery scheduled. Discussed to taper lower after surgery. Pending Tests Test Name Order Date CBC with Differential 2021-05-09 Comprehensive Metabolic Profile (CMP) 2021-05-09 ELECTROCARDIOGRAM, COMPLETE EKG 2021-05-09 Next Appt Details prn Reason: Insurance Providers Payer Name Payer Address Payer Phone Insured Name Patient Relati onship to Insured Coverage Start Date Coverage End Date MEDICARE BLUE O [phone] [address] [employer] SMART self
--- OUTSIDE RECORDS SUMMARY | 2021-05-16 06:12 | CCD | Continuity of Care Document ---
Author Author Saud LEON MD Organization Unknown Address [address] [place] [address] , [facility] [address] [place] [address] Phone [phone] Care Team Providers Care Metal Sander Name Role Phone Gilles Yanez M.D. AUTM [phone] Melvin Pelayo D.O. AUTM [phone] AUTM Unavailable Problems Description No Active Problems Social History Type Date Description Comments Sex Unknown ETOH Use 1 A Day Tobacco Use Start: Unknown Non Smoker Recreational Drug Use Denies Drug Use Smoking Status Reviewed: 04/03/21 Non Smoker Allergies and adverse reactions Active Allergies Criticality Reaction | Severity Comments Date Codeine Unable to assess criticality 08/15/2014 Medications Active Medications SIG Qnty Indications Ordering Provide r Date Aspirin 81mg Tablets 1 by mouth every day Unknown Lasix 40mg Tablets 1 tabs daily for fluid retention Unknown Ibuprofen 200mg Tablets as ne eded Unknown Tamsulosin HCL 0.4mg Capsules by mouth daily Unknown Oxycodone-Acetaminophen 5-325mg Tablets Melvin Pelayo D.O. Glipizide 5mg Tablets Take 1 Tablet By Mouth Every Day 30 Minutes Before Breakfast Melvin Ramos D.O. Freestyle Lite Test Strips Melvin ePlayo D.O. Simvastatin 40mg Tablets Take 1 Tablet By Mouth Every Day In The Evening Sandi Olvera R. P.ADino Sildenafil Citrate 100mg Tablets Take 1 Tablet By Mouth Every Day as Needed Silvestre Lopez M.D. Metformin HCL 1000mg Tablets Take 1 Tablet By Mouth Twice Daily With Meals Sandi Olvera R .P.A. Immunizations Description No Information Available Vital Signs Date Vital Result Comment 04/03/2021 11:18am Body Temperature 97.5 F 10/04/2014 3:51pm BP Systolic 150 mmHg BP Diastolic 80 mmHg Height 70 inches 5'10" Weight 250.00 lb BMI (Body Mass Index) 35.9 kg/m2 [place] Body Weight 166 lb Weight 113.400 kg BSA (Body Surface Area) 2.29 m2 Results Description No Information Available Procedures Date Code Description Status 03/20/2021 59963 Office/Outpatient Established Mo d MDM 30-39 Min Completed 03/16/2021 80687 Office/Outpatient New Moderate M DM 45-59 Minutes Completed 03/16/2021 50620 Inject/Drain Arthrocentesis Hanh r Joint/Bursa/Ganglion Cyst Completed Medical Devices Description No Information Available Encounters Type Date Location Provider Dx Diagnosis Office Visit 03/20/2021 10:30a [facility] Luz Gan DO M16.11 Unilateral primary osteoarthritis, right hip Office Visit 03/16/2021 3:00p [facility] Ted Leon MD M75.42 Impingement syndrome of left shoulder Assessments Date Code Description Provider 04/03/2021 M16.11 Unilateral primary osteoarthriti s, right hip Marv Gan DO 03/20/2021 M16.11 Unilateral primary osteoarthriti s, right hip Marv Gan, 03/16/2021 M75.42 Impingement syndrome of left [place] ulder Ted Leon MD Plan of Treatment Future Appointment(s):* 04/27/2021 1:30 pm - Ted Leon MD at [facility] 04/03/2021 - Marv Gan DO* M16.11 Unilateral primary osteoarthritis, right hip* Comments:* 1. Consent for right total hip arthroplasty2. Consent for blood transfusion if needed3. Arrange for medical clearance and repeat blood work before surgery .4. If we proceeded with medical will need preoperative medical CT. Functional Status Description No Information Available Mental Status Description No Information Available Referrals Refer to Dr Reason for Referral Status Appt Date Estephania Wheatley RD, CDN, Cde Preop right total hip repla cement. Type 2 diabetes. Diet controlled Sent [facility] [address] [place], [place] [id number] [phone] Marv Raymond, DO right hip pain ? replacement Closed 03/20/2021 [address] [facility] [place] [address] [phone]
--- OUTSIDE RECORDS SUMMARY | 2021-05-16 06:12 | CCD | Continuity of Care Document ---
Author Author Saud HOUGH DO Organization Unknown Address [address] [place] [address] Phone [phone] Care Team Providers Care Inbound Sales Advisor Name Role Phone Gilles Yanez M.D. AUTM [phone] Melvin Pelayo D.O. AUTM [phone] AUTM Unavailable Problems Description No Active Problems Social History Type Date Description Comments Sex Unknown ETOH Use 1 A Day Tobacco Use Start: Unknown Non Smoker Recreational Drug Use Denies Drug Use Smoking Status Reviewed: 04/03/21 Non Smoker Allergies and adverse reactions Active Allergies Criticality Reaction | Severity Comments Date Giselle Unable to assess criticality 08/15/2014 Medications Active [...] Ramos D.O. Freestyle Lite Test Strips Melvin Pelayo D.O. Simvastatin 40mg Tablets Take 1 Tablet By Mouth Every Day In The Evening Sandi Olvera R. P.Ciro Sildenafil Citrate 100mg Tablets Take 1 Tablet By Mouth Every Day as Needed Silvestre Lopez M.D. Metformin HCL 1000mg Tablets Take 1 Tablet By Mouth Twice Daily With Meals May, Sandi, R .P.A. Immunizations Description No Information Available Vital Signs Date Vital Result Comment 04/03/2021 11:18am Body Temperature 97.5 F 10/04/2014 3:51pm BP Systolic 150 mmHg BP Diastolic 80 mmHg Height 70 inches 5'10" Weight 250.00 lb BMI (Body Mass Index) 35.9 kg/m2 [place] Body Weight 166 lb Weight 113.400 kg BSA (Body Surface Area) 2.29 m2 Results Description No Information Available Procedures Date Code Description Status 03/20/2021 70289 Office/Outpatient Established Mo d MDM 30-39 Min Completed 03/16/2021 46536 Office/Outpatient New Moderate M DM 45-59 Minutes Completed 03/16/202146967 Inject/Drain Arthrocentesis Hanh r Joint/Bursa/Ganglion Cyst Completed Medical Devices Description No Information Available Encounters Type Date Location Provider Dx Diagnosis Office Visit 03/20/2021 10:30a [facility] Luz Hough DO M16.11 Unilateral primary osteoarthritis, right hip Assessments Date Code Description Provider 04/03/2021 M16.11 Unilateral primary osteoarthriti s, right hip Marv Hough DO 03/20/2021 M16.11 Unilateral primary osteoarthriti s, right hip Marv Hough DO 03/16/2021 M75.42 Impingement syndrome of left [place] chao Chadwick MD Plan of Treatment Future Appointment(s):* 04/27/2021 1:30 pm - Ted Chadwick MD at [facility] 04/03/2021 - Marv Hough DO* M16.11 Unilateral primary osteoarthritis, right hip* New Xrays:* XR Pelvis 1 Or 2 Views, Ordered: 04/03/21 * XR Hip 2-3 Views Right, Ordered: 04/03/21 * Comments:* 1. Consent for right total hip [...] cement. Type 2 diabetes. Diet controlled [facility] [place] [address] [place] [address] [phone] Marv Raymond, DO right hip pain ? replacement Closed 03/20/2021 [address] [facility] [place] [address] [phone]
--- OUTSIDE RECORDS SUMMARY | 2021-05-16 06:12 | CCD ---
Author Author [facility] Organization [facility] Address Unknown Phone Unavailable Care Team Providers Care Risk Control Manager Name Role Phone Melvin Pelayo Unavailable PROBLEMS Type Condition ICD9-CM Code VCM87-LT Code Onset Dates Condition S tatus W/U Status Risk SNOMED Code Notes Problem Chronic low back pain M54.5 Active confirmed 949046807 Problem History of bladder cancer Z85.51 Active confirmed 913297214 Problem Other chronic pain G89.29 Active confirmed 8 8448725 Problem Generalized edema R60.1 Active confirmed 27 9766332 Problem Type 2 diabetes mellitus wit hout complication, without long-term current use of insulin E11.9 Active confirmed 670976815 Problem Hip arthritis M16.10 Active confirmed 415891 06 Problem Morbid obesity due to excess calories E66.01 Ac tive confirmed 811032719 Problem Seasonal allergies J30.2 Active confirmed 4 64819693 Problem Arthritis M19.90 Active confirmed 3109938 Problem Essential hypertension I10 Active confirmed 77371188 Problem Mixed hyperlipidemia E78.2 Active confirmed 509043901 Problem Acrochordon L91.8 Active confirmed 53524487 2 Problem Seborrheic keratoses L82.1 Active confirmed 762448381 ALLERGIES Allergen (clinical drug ingredient) Drug/Non Drug Allergy do cumented on EMR Reaction Allergy Type Onset Date Status Codeine Phosphate (For Allergies Use Only) Unknown Drug Allergy Active ENCOUNTERS from 1950 to 2021-04-05 Encounter Location Date Provider Diagnosis [facility] [address] [facility] [phone] [address] Mar, 2021 Melvin Pleayo IMMUNIZATIONS Vaccine Route Administration Date Status Influenza [...] Education Language: Question Answer Notes Languages spoken: Uruguayan Restorationist: Question Answer Notes Restorationist 06 Gnosticist Sexual Hx: Question Answer Notes Had sex in the last 12 months (vaginal, oral, or anal)? Yes with Women only Use protection? No Drug and Alcohol Question Answer Notes Total Score: 0 Interpretation: No problems reported BMI Care Goal Follow-Up Question Answer Notes Above Normal BMI Follow-Up Dietary management educatio n, guidance, and counseling REASON FOR REFERRAL No Information VITAL SIGNS No information MEDICATIONS Medication SIG (Take, Route, Frequency, Duration) Notes Start Da te End Date Status Lasix 40 MG 1 tablet Orally Once a day as needed for 90 days Active Simvastatin 40 MG 1 tablet in the evening Orally Once a day for 90 da ys Active FreeStyle Lite - as directed DX:E11.9 once daily for 100 days Jun, Active glipiZIDE 5 MG TAKE 1 TABLET BY MOUTH EVERY DAY 30 MINUTES BEFORE BREAKFAST for 90 Active metFORMIN HCl 1000 1 tablet with meals Orally Twice a day for 90 Active traMADol-Acetaminophen 37.5-325 MG 2 tablets as needed Orally every 8 hrs as needed MDD 6 for 30 days Sep, Not-Reji ing oxyCODONE-Acetaminophen 5-325 MG 1-2 tablet as needed Orally every 6 hrs for 30 days Active FreeStyle Lancets - USE DIRECTED THREE TIMES A DAY for 66 Active FreeStyle Lancets - as directed DX:E11.9 three times daily for 30 day s Active Fluticasone Propionate 50 MCG/ACT 1 spray in each nost ril Nasally Once a day for 30 day(s) Twice a day for first week then daily Mar, Active Tamsulosin HCl 0.4 MG 1 capsule Orally Once a day for 90 days Active Amoxicillin 875 MG 1 tablet Orally every 12 hrs for 14 day(s) Sep, Not-Taking predniSONE 20 MG 1 tablet Orally Once a day for 10 day(s) Jan, Not-Taking Viagra 50 MG 1 tablet as needed Orally Once a day for 30 day(s) Active Ibuprofen 200 MG 2 tablet with food or milk as needed Ora lly Three times a day Active Lisinopril 5 MG 2 tablets Orally twice daily for 90 Not-Taking One touch ultra blue Misc 1 strip _ E11.9, 2-3 times daily Active FreeStyle Lite Test - as directed DX:E11.9 three times daily for 30 d ays Active FreeStyle Lite Test - USE DIRECTED THREE TIMES A DAY for 66 Active Magnesium 300 MG 1 capsule with a meal Orally Once a day for 30 day(s) UNSURE OF DOSE - OTC Active Glucosamine 500 MG 1 capsule with a meal Orally Twice a day UNSURE OF DOSE - OTC Active Chromium 50 MCG as directed Orally UNSURE OF DOSE - OTC Active Vitamin D3 10 MCG (400 UNIT) 1 tablet Orally Once a day for 30 day(s) UNSURE OF DOSE - OTC Active Zinc 25 MG 1 tablet Orally Once a day for 30 day(s) UNSURE OF DOSE - OTC Active Amoxicillin-Pot Clavulanate 875-125 MG 1 tablet Orally every 12 hrs for 10 day(s) Jan, Not-Taking Nabumetone 750 MG 1 tablet Orally Twice a day for 90 Not-Taking Fluticasone Propionate 50 MCG/ACT 1 spray in each nost ril Nasally Once a day for 30 Not-Taking PROCEDURES No Information RESULTS No Results REASON FOR VISIT [facility] MEDICAL (GENERAL) HISTORY Type Description Date Medical History arthritis- low back, hands, feet Medical History morbid obesity Medical History DM, 2017 last eye exam Medical History h/o cuca dep Medical History h/o adenocarcinoma of the bladder 2012 - Uro Medical History BPH Medical History HTN, 07/18 EKG SR, borderline T wave abn. 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 Surgical History Left total knee replacement 10/08/2011 Surgical History Teeth extraction X2 2019 Goals Section No Information Health Concerns No Information MEDICAL EQUIPMENT No Information MENTAL STATUS No Information FUNCTIONAL STATUS No Information ASSESSMENTS No Information PLAN OF TREATMENT Medication Medication Name Sig Start Date Stop Date Lasix 40 MG 1 tablet Orally Once a day as needed for 90 days Tamsulosin HCl 0.4 MG 1 capsule Orally Once a day for 90 days FreeStyle Lancets - as directed DX:E11.9 three times daily for 3 0 days oxyCODONE-Acetaminophen 5-325 MG 1-2 tablet as needed Orally every 6 hrs for 30 days Fluticasone Propionate 50 MCG/ACT 1 spray in each nost ril Nasally Once a day for 30 day(s) Mar, FreeStyle Lite Test - as directed DX:E11.9 three times daily for 30 days Insurance Providers Payer Name Payer Address Payer Phone Insured Name Patient Relati onship to Insured Coverage Start Date Coverage End Date MEDICARE BLUE PPO [address] [id number] EMANI SMART self
--- OUTSIDE RECORDS SUMMARY | 2021-05-16 06:12 | CCD | Continuity of Care Document ---
Author Author Saud HOUGH DO Organization Unknown Address [address] [place] [address] Phone [phone] Care Team Providers Care Housekeeper Caregiver Name Role Phone Gilles Yanez M.D. AUTM [phone] Melvin Pelayo D.O. AUTM [phone] AUTM Unavailable Problems Description No Active Problems [...] lb BMI (Body Mass Index) 35.9 kg/m2 [place] Body Weight 166 lb Weight 113.400 kg BSA (Body Surface Area) 2.29 m2 Results Description No Information Available Procedures Date Code Description Status 03/20/2021 43677 Office/Outpatient Established Mo d MDM 30-39 Min Completed 03/16/2021 61865 Office/Outpatient New Moderate M DM 45-59 Minutes Completed 03/16/202154807 Inject/Drain Arthrocentesis Hanh r Joint/Bursa/Ganglion Cyst Completed Medical Devices Description No Information Available Encounters Type Date Location Provider Dx Diagnosis Office Visit 03/20/2021 10:30a [facility] Luz Hough DO M16.11 Unilateral primary osteoarthritis, right hip Assessments Date Code Description Provider 04/03/2021 M16.11 Unilateral primary osteoarthriti s, right hip Marv Hough DO 03/20/2021 M16.11 Unilateral primary osteoarthriti s, right hip Marv Hough DO 03/16/2021 M75.42 Impingement syndrome of left argentina chao Chadwick MD Plan of Treatment Future Appointment(s):* 04/27/2021 1:30 pm - Ted Chadwick MD at [facility] 04/03/2021 - Marv Hough DO* M16.11 Unilateral [...] cement. Type 2 diabetes. Diet controlled [address] [place] [address] [phone] Marv Raymond, DO right hip pain ? replacement Closed 03/20/2021 [address] [facility], [facility] [place] [address] [phone]
--- OUTSIDE RECORDS SUMMARY | 2021-05-16 06:12 | CCD | Continuity of Care Document ---
Author Author Saud HOUGH DO Organization Unknown Address [address] [place] [address] Phone [phone] Care Team Providers Care Decontaminator Name Role Phone Gilles Yanez M.D. AUTM [phone] Melvin Pelayo D.O. AUTM [phone] AUTM Unavailable Problems Description No Active Problems [...] lb BMI (Body Mass Index) 35.9 kg/m2 [place] Body Weight 166 lb Weight 113.400 kg BSA (Body Surface Area) 2.29 m2 Results Description No Information Available Procedures Date Code Description Status 03/20/2021 34164 Office/Outpatient Established Mo d MDM 30-39 Min Completed 03/16/2021 68743 Office/Outpatient New Moderate M DM 45-59 Minutes Completed 03/16/202174969 Inject/Drain Arthrocentesis Hanh r Joint/Bursa/Ganglion Cyst Completed Medical Devices Description No Information Available Encounters Type Date Location Provider Dx Diagnosis Office Visit 03/20/2021 10:30a [facility] Luz Hough DO M16.11 Unilateral primary osteoarthritis, right hip Assessments Date Code Description Provider 04/03/2021 M16.11 Unilateral primary osteoarthriti s, right hip Marv Hough DO 03/20/2021 M16.11 Unilateral primary osteoarthriti s, right hip Marv Hough DO 03/16/2021 M75.42 Impingement syndrome of left argentina choa Chadwick MD Plan of Treatment Future Appointment(s):* 04/27/2021 1:30 pm - Ted Chadwick MD at [facility] 04/03/2021 - Marv Hough DO* M16.11 [...] cement. Type 2 diabetes. Diet controlled [address] [place] [address] [phone] Marv Raymond, DO right hip pain ? replacement Closed 03/20/2021 [address] [facility], [facility] [place] [address] [phone]
--- OUTSIDE RECORDS SUMMARY | 2021-05-16 06:12 | CCD | Continuity of Care Document ---
Author Author Saud HOUGH DO Organization Unknown Address [address] [place] [address] Phone [phone] Care Team Providers Care Radar Technician Name Role Phone Gilles Yanez M.D. AUTM [phone] Melvin Pelayo D.O. AUTM [phone] AUTM Unavailable Problems Description No Active Problems [...] lb BMI (Body Mass Index) 35.9 kg/m2 [place] Body Weight 166 lb Weight 113.400 kg BSA (Body Surface Area) 2.29 m2 Results Description No Information Available Procedures Date Code Description Status 03/20/2021 72290 Office/Outpatient Established Mo d MDM 30-39 Min Completed 03/16/2021 04725 Office/Outpatient New Moderate M DM 45-59 Minutes Completed 03/16/202148302 Inject/Drain Arthrocentesis Hanh r Joint/Bursa/Ganglion Cyst Completed Medical Devices Description No Information Available Encounters Type Date Location Provider Dx Diagnosis Office Visit 03/20/2021 10:30a [facility] Luz Hough DO M16.11 Unilateral primary osteoarthritis, right hip Assessments Date Code Description Provider 04/03/2021 M16.11 Unilateral primary osteoarthriti s, right hip Marv Hough DO 03/20/2021 M16.11 Unilateral primary osteoarthriti s, right hip Marv Hough DO 03/16/2021 M75.42 Impingement syndrome of left argentina chao Chadwick MD Plan of Treatment Future Appointment(s):* 04/27/2021 1:30 pm - Ted Chadwick MD at [facility] 04/03/2021 - Marv Hough DO* M16.11 [...] cement. Type 2 diabetes. Diet controlled [address] [place] [address] [phone] Marv Raymond, DO right hip pain ? replacement Closed 03/20/2021 [address] [facility], [facility] [place] [address] [phone]
--- OUTSIDE RECORDS SUMMARY | 2021-05-16 06:12 | CCD | Continuity of Care Document ---
Author Author Saud LEON MD Organization Unknown Address [address] [place] [address] , [facility] [address] Phone [phone] Care Team Providers Care Assembler Motor Vehicle Name Role Phone Gilles Yanez M.D. AUTM [phone] Melvin Pelayo D.O. AUTM [phone] AUTM Unavailable Problems Description No Active Problems Social History Type Date Description Comments Sex Unknown ETOH Use 1 A Day Tobacco Use Start: Unknown Non Smoker Recreational Drug Use Denies Drug Use Allergies, Adverse Reactions, Alerts Active Allergies Criticality Reaction | Severity Comments Date Stacyine Unable to assess criticality 08/15/2014 Medications Active [...] Mouth Every Day In The Evening Sandi Olvera, R. P.A. Sildenafil Citrate 100mg Tablets Take 1 Tablet By Mouth Every Day as Needed Silvestre Lopez M.D. Metformin HCL 1000mg Tablets Take 1 Tablet By Mouth Twice Daily With Meals Sandi Olvera, R .P.A. Immunizations Description No Information Available Vital Signs Date Vital Result Comment 10/04/2014 3:51pm BP Systolic 150 mmHg BP Diastolic 80 mmHg Height 70 inches 5'10" Weight 250.00 lb BMI (Body Mass Index) 35.9 kg/m2 [place] Body Weight 166 lb Weight 113.400 kg BSA (Body Surface Area) 2.29 m2 Results Description No Information Available Procedures Date Code Description Status 03/16/2021 93583 Office/Outpatient New Moderate M DM 45-59 Minutes Completed 03/16/2021 76872 Inject/Drain Arthrocentesis Hanh r Joint/Bursa/Ganglion Cyst Completed Medical Devices Description No Information Available Encounters Type Date Location Provider Dx Diagnosis Office Visit 03/16/2021 3:00p [facility] Ted Leon MD M75.42 Impingement syndrome of left shoulder Assessments Date Code Description Provider 03/16/2021 M75.42 Impingement syndrome of left argentina ulder Ted Leno MD Plan of Treatment No Information Available Functional Status Description No Information Available Mental Status Description No Information Available Referrals Refer to Dr Reason for Referral Status Appt Date Marv Raymond, DO right hip pain ? replacement Created [address] [facility], [facility] [place] [address] [phone]
--- OUTSIDE RECORDS SUMMARY | 2021-05-16 06:12 | CCD | Continuity of Care Document ---
Author Author Saud HOUGH DO Organization Unknown Address [address] [place] [address] Phone [phone] Care Team Providers Care Clinical Trial Educator Name Role Phone Gilles Yanez M.D. AUTM [phone] Melvin Pelayo D.O. AUTM [phone] AUTM Unavailable Problems Description No Active Problems [...] lb BMI (Body Mass Index) 35.9 kg/m2 [place] Body Weight 166 lb Weight 113.400 kg BSA (Body Surface Area) 2.29 m2 Results Description No Information Available Procedures Date Code Description Status 03/20/2021 22761 Office/Outpatient Established Mo d MDM 30-39 Min Completed 03/16/2021 12539 Office/Outpatient New Moderate M DM 45-59 Minutes Completed 03/16/202154271 Inject/Drain Arthrocentesis Hanh r Joint/Bursa/Ganglion Cyst Completed Medical Devices Description No Information Available Encounters Type Date Location Provider Dx Diagnosis Office Visit 03/20/2021 10:30a [facility] Luz Hough DO M16.11 Unilateral primary osteoarthritis, right hip Assessments Date Code Description Provider 04/03/2021 M16.11 Unilateral primary osteoarthriti s, right hip Marv Hough DO 03/20/2021 M16.11 Unilateral primary osteoarthriti s, right hip Marv Hough DO 03/16/2021 M75.42 Impingement syndrome of left argentina chao Chadwick MD Plan of Treatment Future Appointment(s):* 04/27/2021 1:30 pm - Ted Chadwick MD at [facility] 04/03/2021 - Marv Hough DO* [...] cement. Type 2 diabetes. Diet controlled [address] [place] [address] [phone] Marv Raymond, DO right hip pain ? replacement Closed 03/20/2021 [address] [facility], [facility] [place] [address] [phone]
--- OUTSIDE RECORDS SUMMARY | 2021-05-16 06:12 | CCD | Continuity of Care Document ---
Author Author Saud HOUGH DO Organization Unknown Address [address] [place] [address] Phone [phone] Care Team Providers Care Edge Bander Hand Name Role Phone Gilles Yanez M.D. AUTM [phone] Melvin Pelayo D.O. AUTM [phone] AUTM Unavailable Problems Description No Active Problems [...] lb BMI (Body Mass Index) 35.9 kg/m2 [place] Body Weight 166 lb Weight 113.400 kg BSA (Body Surface Area) 2.29 m2 Results Description No Information Available Procedures Date Code Description Status 04/03/2021 10757 Office/Outpatient Established Mo d MDM 30-39 Min Completed 03/20/2021 22097 Office/Outpatient Established Mo d MDM 30-39 Min Completed 03/16/2021 98112 Office/Outpatient New Moderate M DM 45-59 Minutes Completed 03/16/2021 37015 Inject/Drain Arthrocentesis Hanh r Joint/Bursa/Ganglion Cyst Completed Medical Devices Description No Information Available Encounters Type Date Location Provider Dx Diagnosis Office Visit 04/03/2021 11:20a [facility] Luz Hough DO M16.11 Unilateral primary osteoarthritis, right hip Office Visit 03/20/2021 10:30a [facility] Luz Hough DO M16.11 Unilateral primary osteoarthritis, right hip Office Visit 03/16/2021 3:00p [facility] Ted Chadwick MD M75.42 Impingement syndrome of left shoulder Assessments Date Code Description Provider 04/03/2021 M16.11 Unilateral primary osteoarthriti s, right hip Marv Hough, 03/20/2021 M16.11 Unilateral primary osteoarthriti s, right hip Marv Hough, 03/16/2021 M75.42 Impingement syndrome of left argentina chao Chadwick MD Plan of Treatment Future Appointment(s):* 04/27/2021 1:30 pm - Ted Chadwick MD at [facility] 04/03/2021 - Marv Hough DO* M16.11 Unilateral [...] cement. Type 2 diabetes. Diet controlled Sent [address] [address] [phone] Marv Raymond, DO right hip pain ? replacement Closed 03/20/[address] [place] [address], [facility] [address] [place] [id number] [phone]
--- OUTSIDE RECORDS SUMMARY | 2021-05-16 06:12 | CCD | Continuity of Care Document ---
Author Author Saud HOUGH DO Organization Unknown Address [address] [place] [address] Phone [phone] Care Team Providers Care Rotary Derrick Operator Name Role Phone Gilles Yanez M.D. AUTM [phone] Melvin Pelayo D.O. AUTM [phone] AUTM Unavailable Problems Description No Active Problems [...] lb BMI (Body Mass Index) 35.9 kg/m2 [place] Body Weight 166 lb Weight 113.400 kg BSA (Body Surface Area) 2.29 m2 Results Description No Information Available Procedures Date Code Description Status 03/16/2021 01376 Office/Outpatient New Moderate M DM 45-59 Minutes Completed 03/16/2021 59625 Inject/Drain Arthrocentesis Hanh r Joint/Bursa/Ganglion Cyst Completed Medical Devices Description No Information Available Encounters Type Date Location Provider Dx Diagnosis Office Visit 03/16/2021 3:00p [facility] Ted Chadwick MD M75.42 Impingement syndrome of left shoulder Assessments Date Code Description Provider 03/16/2021 M75.42 Impingement syndrome of left argentina ulder Ted Chadwick MD Plan of Treatment Future Appointment(s):* 04/27/2021 1:30 pm - Ted Chadwick MD at [facility] Functional Status Description No Information Available Mental Status Description No Information Available Referrals Refer to Reason for Referral Status Appt Date Pack, Marv Roberson, DO right hip pain ? replacement Closed 03/20/2021 [address] [facility], [facility] [place] [address] [phone]
--- OUTSIDE RECORDS SUMMARY | 2021-05-16 06:12 | CCD ---
Author Author [facility] Organization [employer] [facility] [employer] Address Unknown Phone Unavailable Care Team Providers Care Pulvi Mixer Operator Name Role Phone Melvin Pelayo Unavailable PROBLEMS Type Condition ICD9-CM Code BVC30-DO Code Onset Dates Condition S tatus W/U Status Risk SNOMED Code Notes Problem Chronic low back pain M54.5 Active confirmed 687300502 Problem History of bladder cancer Z85.51 Active confirmed 159813346 Problem Other chronic pain G89.29 Active confirmed 8 4162560 Problem Generalized edema R60.1 Active confirmed 27 2735187 Problem Type 2 diabetes mellitus wit hout complication, without long-term current use of insulin E11.9 Active confirmed 409372739 Problem Hip arthritis M16.10 Active confirmed 130081 06 Problem Morbid obesity due to excess calories E66.01 Ac tive confirmed 428365844 Problem Seasonal allergies J30.2 Active confirmed 4 10620288 Problem Arthritis M19.90 Active confirmed 6543016 Problem Essential hypertension I10 Active confirmed 95047760 Problem Mixed hyperlipidemia E78.2 Active confirmed 099538242 Problem Acrochordon L91.8 Active confirmed 93769656 2 Problem Seborrheic keratoses L82.1 Active confirmed 305891228 ALLERGIES Allergen (clinical drug ingredient) Drug/Non Drug Allergy do cumented on EMR Reaction Allergy Type Onset Date Status Codeine Phosphate (For Allergies Use Only) Unknown Drug Allergy Active ENCOUNTERS from 1950 to 2021-05-14 Encounter Location Date Provider Diagnosis [facility] [address] [facility] [phone] [place] [address] Apr, Melvin Pelayo Hip arthritis M16.10 ; Lower urinary tract symptoms R39.9 and Type 2 diabetes mellitus without complication, without long-term current use of insulin E11.9 IMMUNIZATIONS Vaccine Route Administration Date Status Influenza [...] Education Language: Question Answer Notes Languages spoken: Tongan Rastafari: Question Answer Notes Rastafari 06 [employer] Sexual Hx: Question Answer Notes Had sex [...] Information RESULTS No Results REASON FOR VISIT refills MEDICAL (GENERAL) HISTORY Type Description Date Medical History arthritis- low back, hands, feet Medical History morbid obesity Medical History DM, 2017 last eye exam Medical History h/o cuca dep Medical History h/o adenocarcinoma of the bladder 2012 - [facility] Uro Medical History BPH Medical History HTN, [...] Treatment Notes Treatm ent Clinical Notes Apr, Hip arthritis (ICD-10 - M16.10) Apr, Lower urinary tract symptoms (ICD-10 - R39.9) Apr, Type 2 diabetes mellitus wit hout complication, without long-term current use of insulin (ICD-10 - E11.9) PLAN OF TREATMENT Medication Medication Name Sig [...] three times daily for 3 0 days Insurance Providers Payer Name Payer Address Payer Phone Insured Name Patient Relati onship to Insured Coverage Start Date Coverage End Date MEDICARE BLUE PPO 306 [employer] [address] [place] [address] EMANI SMART self
--- OUTSIDE RECORDS SUMMARY | 2021-05-16 06:12 | CCD | Continuity of Care Document ---
Author Author Saud LEON MD Organization Unknown Address [address] [place] [address] , [facility] [address] [id number] Phone [phone] Care Team Providers Care Perfect Binder Operator Name Role Phone Gilles Yanez M.D. AUTM [phone] Melvin Pelayo D.O. AUTM [phone] AUTM Unavailable Problems Description No Active Problems [...] lb BMI (Body Mass Index) 35.9 kg/m2 [place] Body Weight 166 lb Weight 113.400 kg BSA (Body Surface Area) 2.29 m2 Results Description No Information Available Procedures Date Code Description Status 03/16/2021 47915 Office/Outpatient New Moderate M DM 45-59 Minutes Completed 03/16/2021 92092 Inject/Drain Arthrocentesis Hanh r Joint/Bursa/Ganglion Cyst Completed Medical Devices Description No Information Available Encounters Type Date Location Provider Dx Diagnosis Office Visit 03/16/2021 3:00p [facility] Ted Leon MD M75.42 Impingement syndrome of left shoulder Assessments Date Code Description Provider 03/16/2021 M75.42 Impingement syndrome of left [place] ulder Ted Leon MD Plan of Treatment No Information Available Functional Status Description No Information Available Mental Status Description No Information Available Referrals Refer to Dr Reason for Referral Status Appt Date Marv Raymond, DO right hip pain ? replacement Created [address] [facility], [place], [facility] [place] [address] [phone]
--- OUTSIDE RECORDS SUMMARY | 2021-05-16 06:12 | CCD ---
Author Author [facility] [employer] Organization [facility] [employer] Address Unknown Phone Unavailable Care Team Providers Care Gas Appliance Repairer Name Role Phone Melvin Pelayo Unavailable PROBLEMS Type Condition ICD9-CM Code [id number] Code Onset Dates Condition S tatus W/U Status Risk SNOMED Code Notes Problem Chronic low back pain M54.5 Active confirmed 035069757 Problem History of bladder cancer Z85.51 Active confirmed 802990241 Problem Other chronic pain G89.29 Active confirmed 8 2774557 Problem Generalized edema R60.1 Active confirmed 27 3822976 Problem Type 2 diabetes mellitus wit hout complication, without long-term current use of insulin E11.9 Active confirmed 823866935 Problem Hip arthritis M16.10 Active confirmed 022105 06 Problem Morbid obesity due to excess calories E66.01 Ac tive confirmed 239385789 Problem Seasonal allergies J30.2 Active confirmed 4 54962249 Problem Arthritis M19.90 Active confirmed 5867991 Problem Essential hypertension I10 Active confirmed 95968837 Problem Mixed hyperlipidemia E78.2 Active confirmed 471807763 Problem Acrochordon L91.8 Active confirmed 72946055 2 Problem Seborrheic keratoses L82.1 Active confirmed 433111608 ALLERGIES Allergen (clinical drug ingredient) Drug/Non Drug Allergy do cumented on EMR Reaction Allergy Type Onset Date Status Codeine Phosphate (For Allergies Use Only) Unknown Drug Allergy Active ENCOUNTERS from 1950 to 2021-04-10 Encounter Location Date Provider Diagnosis [facility] [address] [facility] [phone] [place] [address] 07 Mar, 2021 Melvin Pelayo Type 2 diabetes mellitus wit hout complication, without long-term current use of insulin E11.9 ; Hip arthritis M16.10 ; Left shoulder pain, unspecified chronicity M25.512 ; Leg swelling M79.89 ; Lower urinary tract symptoms R39.9 and Seasonal allergies J30.2 IMMUNIZATIONS Vaccine Route Administration Date Status Influenza (High Dose 65 & up) IM Intramuscular Apr 22, 2017 A dministered Influenza (High Dose 65 & up) IM Intramuscular Apr 11, 2016 A dministered Pneumococcal Adult 0.5mL Pneumovax 23 IM Intramuscular Jul 15, 018 Administered TDAP 0.5mL (Boostrix) IM Intramuscular [...] Education Language: Question Answer Notes Languages spoken: Mexican Gnosticist: Question Answer Notes Gnosticist 06 Confucianist Sexual Hx: Question Answer Notes Had sex in the last 12 months (vaginal, oral, or anal)? Yes with Women only Use protection? No Drug and Alcohol Question Answer Notes Total Score: 0 Interpretation: No problems reported BMI Care Goal Follow-Up Question Answer Notes Above Normal BMI Follow-Up Dietary management educatio n, guidance, and counseling REASON FOR REFERRAL No Information VITAL SIGNS Weight 244 lbs Mar, Height 5'9" in Mar, BMI 36.03 kg/m2 Mar, Heart Rate 87 /min Mar, Respiratory Rate 18 /min Mar, Temperature 96.8 degrees Fahrenheit Mar, Oximetry 97 Mar, Blood pressure systolic 145 mm Hg Mar, Blood pressure diastolic 77 mm Hg Mar, MEDICATIONS Medication SIG (Take, Route, Frequency, Duration) [...] as needed MDD 6 for 30 days 20 Apr, 2018 Not-Reji ing oxyCODONE-Acetaminophen 5-325 MG 1-2 tablet [...] Information RESULTS No Results REASON FOR VISIT 1 mth - CALL THE HOME NUMBER MEDICAL (GENERAL) HISTORY Type Description Date Medical [...] Notes Treatment Notes Treatm ent Clinical Notes Mar, Type 2 diabetes mellitus wit hout complication, [...] may be 7% for surgery per surgeon. Mar, Hip arthritis (ICD-10 - M16.10) Continue using oxycodone 1 to 2 tablets as needed for pain. Call for refill when start to run low. Follow-up with orthopedic to discuss surgery. Will likely need preop. Will see patient at that time. Continue to optimizing diabetes. Mar, Left shoulder pain, unspecified chronicity (ICD- 10 - M25.512) Had left shoulder steroid injection. Notes benefit at this time. Mar, Leg swelling (ICD-10 - M79.89) Continue use as needed at this time. Mar, Lower urinary tract symptoms (ICD-10 - R39.9) Need refill. Sending in. Mar, Seasonal allergies (ICD-10 - J30.2) Due to worsening sinus symptoms over the last couple weeks. Starting Flonase for possible sinusitis. Most common cause is viral. Since has been over 7 days treating symptomatically at this time. Continue daily antihistamine use. If not improving in a couple weeks call office for possible antibiotic. Mar, Other #: [id number] /oxycodone-acetaminophen 5-325 mg tab [id number] Pelayo [id number] PLAN OF TREATMENT Medication Medication Name Sig [...] DX:E11.9 three times daily for 30 days Treatment Notes Assessment Notes Clinical Notes Type 2 diabetes mellitus without complic ation, [...] to 2 tablets as needed for pain. Call for refill when start to run low. Follow-up with orthopedic to discuss surgery. Will likely need preop. Will see patient at that time. Continue to optimizing diabetes. Left shoulder pain, unspecified chronicity Had left shoulder steroid injection. Notes benefit at this time. Leg swelling Continue use as need ed at this time. Lower urinary tract symptoms Need refill . Sending in. Seasonal allergies Due to worsening sin us symptoms over the last couple weeks. Starting Flonase for possible sinusitis. Most common cause is viral. Since has been over 7 days treating symptomatically at this time. Continue daily antihistamine use. If not improving in a couple weeks call office for possible antibiotic. Next Appt Details 3 mth Reason: Insurance Providers Payer Name Payer Address Payer Phone Insured Name Patient Relati onship to Insured Coverage Start Date Coverage End Date MEDICARE BLUE PPO [address] [facility] [place] [id number] EMANI SMART self
--- OUTSIDE RECORDS SUMMARY | 2021-05-16 06:12 | CCD | Continuity of Care Document ---
Author Author Saud HOUGH DO Organization Unknown Address [address] [place] [address] Phone [phone] Care Team Providers Care Plasma Processing Centrifuge Operator Name Role Phone Gilles Yanez M.D. AUTM [phone] Melvin Pelayo D.O. AUTM [phone] AUTM Unavailable Problems Description No Active Problems [...] lb BMI (Body Mass Index) 35.9 kg/m2 [place] Body Weight 166 lb Weight 113.400 kg BSA (Body Surface Area) 2.29 m2 Results Description No Information Available Procedures Date Code Description Status 03/20/2021 44116 Office/Outpatient Established Mo d MDM 30-39 Min Completed 03/16/2021 37664 Office/Outpatient New Moderate M DM 45-59 Minutes Completed 03/16/2021 44033 Inject/Drain Arthrocentesis Hanh r Joint/Bursa/Ganglion Cyst Completed Medical Devices Description No Information Available Encounters Type Date Location Provider Dx Diagnosis Office Visit 03/20/2021 10:30a [facility] Luz Hough DO M16.11 Unilateral primary osteoarthritis, right hip Assessments Date Code Description Provider 03/20/2021 M16.11 Unilateral primary osteoarthriti s, right hip Marv Hough DO 03/16/2021 M75.42 Impingement syndrome of left arg[place] chao Chadwick MD Plan of Treatment Future Appointment(s):* 04/27/2021 1:30 pm - Ted Chadwick MD at [facility] 03/20/2021 - Marv Hough DO* M16.11 Unilateral primary osteoarthritis, right hip* Comments:* 1. Follow-up reviewed blood work2. Patient to consider right total hip replacement. 3. Patient referred to dietitian to help with a diabetic diet. * Referral:* Estephania Wheatley RD, CDN, Cde, Functional Status Description No Information Available Mental Status Description No Information Available Referrals Refer to Dr Reason for Referral Status Appt Date Estephania Wheatley RD, CDN, Cde Preop right total hip repla cement. Type 2 diabetes. Diet controlled Sent [address] [address] [phone] Marv Raymond DO right hip pain ? replacement Closed 03/20/2021 [address] [facility], [facility] [place] [address] [phone]
--- OUTSIDE RECORDS SUMMARY | 2021-05-16 06:12 | CCD ---
Author Author [employer] Organization [employer] Address Unknown Phone Unavailable Care Team Providers Care Electrical Engineering Draftsperson Name Role Phone Melvin Pelayo Unavailable PROBLEMS Type Condition ICD9-CM Code QSP03-HA Code Onset Dates Condition S tatus W/U Status Risk SNOMED Code Notes Problem Chronic low back pain M54.5 Active confirmed 438719575 Problem History of bladder cancer Z85.51 Active confirmed 643656539 Problem Other chronic pain G89.29 Active confirmed 8 1211823 Problem Generalized edema R60.1 Active confirmed 27 6465713 Problem Type 2 diabetes mellitus wit hout complication, without long-term current use of insulin E11.9 Active confirmed 823172705 Problem Hip arthritis M16.10 Active confirmed 766102 06 Problem Morbid obesity due to excess calories E66.01 Ac tive confirmed 994193049 Problem Seasonal allergies J30.2 Active confirmed 4 50549735 Problem Arthritis M19.90 Active confirmed 3380639 Problem Essential hypertension I10 Active confirmed 45011390 Problem Mixed hyperlipidemia E78.2 Active confirmed 375145052 Problem Acrochordon L91.8 Active confirmed 00117611 2 Problem Seborrheic keratoses L82.1 Active confirmed 460645223 ALLERGIES Allergen (clinical drug ingredient) Drug/Non Drug Allergy do cumented on EMR Reaction Allergy Type Onset Date Status Codeine Phosphate (For Allergies Use Only) Unknown Drug Allergy Active ENCOUNTERS from 1950 to 2021-04-12 Encounter Location Date Provider Diagnosis [facility] [address] [facility] [phone] [place] [address] Mar, Melvin Pelayo Hip arthritis M16.10 IMMUNIZATIONS Vaccine Route Administration [...] Education Language: Question Answer Notes Languages spoken: Turkish Buddhist: Question Answer Notes Buddhist 06 Latter-Day Sexual Hx: Question Answer Notes Had sex [...] once daily for 100 days Jun, Active FreeStyle Lite Test - USE DIRECTED THREE TIMES A DAY for 66 Active FreeStyle Lancets - as directed DX:E11.9 three times daily for 30 day s Active traMADol-Acetaminophen 37.5-325 MG 2 tablets as needed Orally every 8 hrs as needed MDD 6 for 30 days Sep, Not-Reji ing metFORMIN HCl 1000 1 tablet with meals Orally Twice a day for 90 Active FreeStyle Lancets - USE DIRECTED THREE TIMES A DAY for 66 Active FreeStyle Lite Test - as directed DX:E11.9 three times daily for 30 d ays Active Fluticasone Propionate 50 MCG/ACT 1 spray [...] Once a day for 30 day(s) Active glipiZIDE 5 MG TAKE 1 TABLET BY MOUTH EVERY DAY 30 MINUTES BEFORE BREAKFAST for 90 Active Lisinopril 5 MG 2 tablets Orally twice daily for 90 Not-Taking One touch ultra blue Misc 1 strip _ E11.9, 2-3 times daily Active oxyCODONE-Acetaminophen 5-325 MG 1-2 tablet as needed Orally every 6 hrs for 30 days Mar, Active Ibuprofen 200 MG 2 tablet with food or milk as needed Ora lly Three times a day Active Magnesium 300 MG 1 capsule with [...] Information RESULTS No Results REASON FOR VISIT Refill MEDICAL (GENERAL) HISTORY Type Description Date Medical [...] Treatment Notes Treatm ent Clinical Notes Mar, Hip arthritis (ICD-10 - M16.10) PLAN OF TREATMENT Medication Medication Name Sig Start Date Stop Date Lasix 40 MG 1 tablet Orally Once a day as needed for 90 days Tamsulosin HCl 0.4 MG 1 capsule Orally Once a day for 90 days FreeStyle Lite Test - as directed DX:E11.9 three times daily for 30 days FreeStyle Lancets - as directed DX:E11.9 three times daily for 3 0 days glipiZIDE 5 MG TAKE 1 TABLET BY MOUTH EVERY DAY 30 MINUTES BEFORE BREAKFAST for 90 oxyCODONE-Acetaminophen 5-325 MG 1-2 tablet as needed Orally every 6 hrs for 30 days Mar, Fluticasone Propionate 50 MCG/ACT 1 spray in each nost ril Nasally Once a day for 30 day(s) Mar, Insurance Providers Payer Name Payer Address Payer Phone Insured Name Patient Relati onship to Insured Coverage Start Date Coverage End Date MEDICARE BLUE PPO [address] [place] [id number] EMANI SMART self
--- OUTSIDE RECORDS SUMMARY | 2021-05-16 06:12 | CCD | Continuity of Care Document ---
Author Author Saud HOUGH DO Organization Unknown Address [address] [place] [address] Phone [phone] Care Team Providers Care Pipe Changer Name Role Phone Gilles Yanez M.D. AUTM [phone] Melvin Pelayo D.O. AUTM [phone] AUTM Unavailable Problems Description No Active Problems [...] lb BMI (Body Mass Index) 35.9 kg/m2 [place] Body Weight 166 lb Weight 113.400 kg BSA (Body Surface Area) 2.29 m2 Results Description No Information Available Procedures Date Code Description Status 03/20/2021 42399 Office/Outpatient Established Mo d MDM 30-39 Min Completed 03/16/2021 17998 Office/Outpatient New Moderate M DM 45-59 Minutes Completed 03/16/202117619 Inject/Drain Arthrocentesis Hanh r Joint/Bursa/Ganglion Cyst Completed Medical Devices Description No Information Available Encounters Type Date Location Provider Dx Diagnosis Office Visit 03/20/2021 10:30a [facility] Luz Hough DO M16.11 Unilateral primary osteoarthritis, right hip Assessments Date Code Description Provider 04/03/2021 M16.11 Unilateral primary osteoarthriti s, right hip Marv Hough DO 03/20/2021 M16.11 Unilateral primary osteoarthriti s, right hip Marv Hough DO 03/16/2021 M75.42 Impingement syndrome of left argent[place] chao Chadwick MD Plan of Treatment Future Appointment(s):* 04/27/2021 1:30 pm - Ted Chadwick MD at [facility] 04/03/2021 - Marv Hough DO* M16.11 Unilateral [...] cement. Type 2 diabetes. Diet controlled Sent [address] [place] [address] [phone] Marv Raymond, DO right hip pain ? replacement Closed 03/20/2021 [address] [facility], [place] [address] [phone]
--- OUTSIDE RECORDS SUMMARY | 2021-05-16 06:13 | CCD ---
Author Author [facility] Organization [facility] Address Unknown Phone Unavailable Care Team Providers Care Sorter Laundry Articles Name Role Phone Melvin Pelayo Unavailable PROBLEMS Type Condition ICD9-CM Code XAF56-SO Code Onset Dates Condition S tatus W/U Status Risk SNOMED Code Notes Problem Arthritis M19.90 Active confirmed 7100773 Problem Morbid obesity due to excess calories E66.01 Ac tive confirmed 285573622 Problem Generalized edema R60.1 Active confirmed 27 4741740 Problem History of bladder cancer Z85.51 Active confirmed 105886300 Problem Acrochordon L91.8 Active confirmed 67427384 2 Problem Chronic low back pain M54.5 Active confirmed 999915439 Problem Hip arthritis M16.10 Active confirmed 956813 06 Problem Other chronic pain G89.29 Active confirmed 8 1082675 Problem Type 2 diabetes mellitus wit hout complication, without long-term current use of insulin E11.9 Active confirmed 096092048 Problem Essential hypertension I10 Active confirmed 67250271 Problem Mixed hyperlipidemia E78.2 Active confirmed 025198132 Problem Seborrheic keratoses L82.1 Active confirmed 161486550 ALLERGIES Allergen (clinical drug ingredient) Drug/Non Drug Allergy do cumented on EMR Reaction Allergy Type Onset Date Status Codeine Phosphate (For Allergies Use Only) Unknown Drug Allergy Active ENCOUNTERS from 1950 to 2021-02-22 Encounter Location Date Provider Diagnosis [facility] [address] [facility] [phone] [place] [address] Jan, Melvin Pelayo Type 2 diabetes mellitus wit hout complication, without long-term current use of insulin E11.9 ; Hip arthritis M16.10 and Essential hypertension I10 IMMUNIZATIONS Vaccine Route Administration Date Status Influenza [...] Education Language: Question Answer Notes Languages spoken: Mauritanian Cheondoism: Question Answer Notes Cheondoism 06 Jew Sexual Hx: Question Answer Notes Had sex in the last 12 months (vaginal, oral, or anal)? Yes with Women only Use protection? No Drug and Alcohol Question Answer Notes Total Score: 0 Interpretation: No problems reported BMI Care Goal Follow-Up Question Answer Notes Above Normal BMI Follow-Up Dietary management educatio n, guidance, and counseling REASON FOR REFERRAL No Information VITAL SIGNS Weight 242.8 lbs Jan, Weight-kg 110.13 kg Jan, Height 5'9" in Jan, BMI 35.85 kg/m2 Jan, Heart Rate 77 /min Jan, Respiratory Rate 18 /min Jan, Temperature 96.1 degrees Fahrenheit Jan, Oximetry 97 Jan, Blood pressure systolic 171 mm Hg Jan, Blood pressure diastolic 96 mm Hg Jan, MEDICATIONS Medication SIG (Take, Route, Frequency, Duration) Notes Start Da te End Date Status Amoxicillin-Pot Clavulanate 875-125 MG 1 tablet Orally every 12 hrs for 10 day(s) Jan, Not-Taking predniSONE 20 MG 1 tablet Orally Once a day for 10 day(s) Jan, Not-Taking Ibuprofen 200 MG 2 tablet with food or milk as needed Ora lly Three times a day Active glipiZIDE 5 MG 1 tablet 30 minutes before b reakfast Orally Once a day for 90 day(s) Active metFORMIN HCl 1000 1 tablet with meals Orally Twice a day for 90 Active Viagra 50 MG 1 tablet as needed Orally Once a day for 30 day(s) Active oxyCODONE-Acetaminophen 5-325 MG 1 tablet as needed Or ally every 6 hrs for 30 days Jan, Active FreeStyle Lite - as directed DX:E11.9 once daily for 100 days Jun, Active Amoxicillin 875 MG 1 tablet Orally every 12 hrs for 14 day(s) Sep, Not-Taking Vitamin D3 10 MCG (400 UNIT) 1 [...] a day as needed for 90 days Not-Taking One touch ultra blue Misc 1 strip _ E11.9, 2-3 times daily Active Fluticasone Propionate 50 MCG/ACT 1 spray in each nost ril Nasally Once a day for 30 Not-Taking Lisinopril 5 MG 2 tablets Orally twice daily for 90 Not-Taking Simvastatin 40 MG 1 tablet in the evening Orally Once a day for 90 da ys Active traMADol-Acetaminophen 37.5-325 MG 2 tablets as needed Orally every 8 hrs as needed MDD 6 for 30 days Sep, Active Tamsulosin HCl 0.4 MG 1 capsule Orally Once a day for 90 days Active Chromium 50 MCG as directed Orally UNSURE OF DOSE - OTC Active Magnesium 300 MG 1 capsule with a meal Orally Once a day for 30 day(s) UNSURE OF DOSE - OTC Active FreeStyle Lite Test - USE DIRECTED THREE TIMES A DAY for 66 Active Glucosamine 500 MG 1 capsule with a meal Orally Twice a day UNSURE OF DOSE - OTC Active Nabumetone 750 MG 1 tablet Orally Twice a day for 90 Not-Taking PROCEDURES No Information RESULTS No Results REASON FOR VISIT 1 month F/U MEDICAL (GENERAL) HISTORY Type Description Date Medical [...] Notes Treatment Notes Treatm ent Clinical Notes Jan, Type 2 diabetes mellitus wit hout complication, without long-term current use of insulin (ICD-10 - E11.9) Did not bring in log. Notes glucose levels have improved checking at home. Needs refill since sometimes checks more than twice a day. Order labs to monitor control. Last A1C earlier this year. See if improved from then. He noted insurance only pays for twice a year. Jan, Hip arthritis (ICD-10 - M16.10) Per patient, ortho would not consider an injection/ surgery without improving diabetes. Patient was unhappy drivingto [place] and not getting much relief. Would like to discuss injection/ surgery locally. Told patient can refer locally. Then can discuss surgery/ injections. Patient agreed. Also he discussed that pain control not optimal with current medication. Discussed trying different medication, he agreed. Was getting some relief with previous but not all the time. Refer to ortho, [facility] at this time. Would like to not go to [facility] ortho per patient request. Jan, Essential hypertension (ICD-10 - I10) BP not well controlled today. Likely due to pain at this time. Monitor at home and record. Patient notes usually controlled at home. If not will need to adjust medication. Goal 140/90. Jan, Other #: [id number] tramadol-acetaminophen 37.5-325 mg tab [id number] Pelayo [id number] PLAN OF TREATMENT Medication Medication Name Sig Start Date Stop Date FreeStyle Lancets - USE DIRECTED THREE TIMES A DAY for 66 FreeStyle Lite Test - USE DIRECTED THREE TIMES A DAY for 66 oxyCODONE-Acetaminophen 5-325 MG 1 tablet as needed Or ally every 6 hrs for 30 days Jan, Treatment Notes Assessment Notes Clinical Notes Type 2 diabetes mellitus without complic ation, without long-term current use of insulin Did not bring in log. Notes glucose levels have improved checking at home. Needs refill since sometimes checks more than twice a day.Order labs to monitor control. Last A1C earlier this year. See if improved from then. He noted insurance only pays for twice a year. Hip arthritis Per patient, keith hardy not consider an injection/ surgery without improving diabetes. Patient was unhappy drivingto [place] and not getting much relief. Would like to discuss injection/ surgery locally.Told patient can refer locally. Then can discuss surgery/ injections. Patient agreed. Also he discussed that pain control not optimal with current medication. Discussed trying different medication, he agreed. Was getting some relief with previous but not all the time. Refer to ortho, [facility] at this time. Would like to not go to [facility] ortho per patient request. Essential hypertension BP not well controlled today . Likely due to pain at this time. Monitor at home and record. Patient notes usually controlled at home. If not will need to adjust medication. Goal 140/90. Treatment Notes Test Name Order Date HEMOGLOBIN A1c 2021-02-14 MICROALBUMIN RANDOM 2021-02-14 LIPID PANEL (CARDIAC RISK) 2021-02-14 Basic Metabolic Profile (BMP) 2021-02-14 Next Appt Details 1-2 mths Reason: Provider Name:Melvin Pelayo, 2021-03-21 01:30:00 PM, [address] [facility], , [place], [address], Insurance Providers Payer Name Payer Address Payer Phone Insured Name Patient Relati onship to Insured Coverage Start Date Coverage End Date MEDICARE BLUE PPO [address] [facility] [id number] EMANI SMART self
--- OUTSIDE RECORDS SUMMARY | 2021-05-16 06:13 | CCD ---
Author Author [facility] Organization [facility] Address Unknown Phone Unavailable Care Team Providers Care Staff Field Engineer Name Role Phone Melvin Pelayo Unavailable PROBLEMS Type Condition ICD9-CM Code [id number] Code Onset Dates Condition S tatus W/U Status Risk SNOMED Code Notes Problem Arthritis M19.90 Active confirmed 6508518 Problem Morbid obesity due to excess calories E66.01 Ac tive confirmed 073141987 Problem Generalized edema R60.1 Active confirmed 27 9598730 Problem History of bladder cancer Z85.51 Active confirmed 469691014 Problem Acrochordon L91.8 Active confirmed 19717934 2 Problem Chronic low back pain M54.5 Active confirmed 200635041 Problem Hip arthritis M16.10 Active confirmed 115304 06 Problem Other chronic pain G89.29 Active confirmed 8 0460184 Problem Type 2 diabetes mellitus wit hout complication, without long-term current use of insulin E11.9 Active confirmed 475860010 Problem Essential hypertension I10 Active confirmed 49096658 Problem Mixed hyperlipidemia E78.2 Active confirmed 907563641 Problem Seborrheic keratoses L82.1 Active confirmed 065474023 ALLERGIES Allergen (clinical drug ingredient) Drug/Non Drug Allergy do cumented on EMR Reaction Allergy Type Onset Date Status Codeine Phosphate (For Allergies Use Only) Unknown Drug Allergy Active ENCOUNTERS from 1950 to 2021-03-06 Encounter Location Date Provider Diagnosis [facility] [address] [facility] [phone] [place] [address] Feb, 2021 Melvin Pelayo IMMUNIZATIONS Vaccine Route Administration Date Status Influenza (High Dose 65 & up) IM Intramuscular Apr 22, 2017 A dministered Influenza (High Dose 65 & up) IM Intramuscular Apr 11, 2016 A dministered Pneumococcal Adult 0.5mL Pneumovax 23 IM Intramuscular Jul 15, 2 018 Administered TDAP 0.5mL (Boostrix) IM Intramuscular [...] Education Language: Question Answer Notes Languages spoken: Thai Pentecostalism: Question Answer Notes Pentecostalism 06 Holiness Sexual Hx: Question Answer Notes Had sex [...] Notes Start Da te End Date Status Ibuprofen 200 MG 2 tablet with food or milk as needed Ora lly Three times a day Active predniSONE 20 MG 1 tablet Orally Once a day for 10 day(s) Jan, Not-Taking Nabumetone 750 MG 1 tablet Orally Twice a day for 90 Not-Taking Magnesium 300 MG 1 capsule with a meal Orally Once a day for 30 day(s) UNSURE OF DOSE - OTC Active oxyCODONE-Acetaminophen 5-325 MG 1 tablet as needed Or ally every 6 hrs for 30 days Jan, Active Viagra 50 MG 1 tablet as needed Orally Once a day for 30 day(s) Active Amoxicillin-Pot Clavulanate 875-125 MG 1 tablet Orally every 12 hrs for 10 day(s) Jan, Not-Taking FreeStyle Lite - as directed DX:E11.9 once daily for 100 days Jun, Active metFORMIN HCl 1000 1 tablet with meals Orally Twice a day for 90 Active Vitamin D3 10 MCG (400 UNIT) [...] Nasally Once a day for 30 Not-Taking Tamsulosin HCl 0.4 MG 1 capsule Orally Once a day for 90 days Active Chromium 50 MCG as directed Orally UNSURE OF DOSE - OTC Active traMADol-Acetaminophen 37.5-325 MG 2 tablets as needed Orally every 8 hrs as needed MDD 6 for 30 days Sep, Active glipiZIDE 5 MG TAKE 1 TABLET BY MOUTH EVERY DAY 30 MINUTES BEFORE BREAKFAST for 90 Active Amoxicillin 875 MG 1 tablet Orally every 12 hrs for 14 day(s) Sep, Not-Taking Simvastatin 40 MG 1 tablet in the evening Orally Once a day for 90 da ys Active FreeStyle Lite Test - USE DIRECTED THREE TIMES A DAY for 66 Active Glucosamine 500 MG 1 capsule with a meal Orally Twice a day UNSURE OF DOSE - OTC Active Lisinopril 5 MG 2 tablets Orally twice daily for 90 Not-Taking PROCEDURES No Information RESULTS No Results REASON FOR VISIT concerns MEDICAL (GENERAL) HISTORY Type Description Date Medical History arthritis- low back, hands, feet Medical History morbid obesity Medical History DM2017 last eye exam Medical History h/o cuca [...] every 6 hrs for 30 days Jan, glipiZIDE 5 MG TAKE 1 TABLET BY MOUTH EVERY DAY 30 MINUTES BEFORE BREAKFAST for 90 Next Appt Details Provider Name:Melvin Pelayo, 2021-03-07 10:30:00 AM, [address] [facility], , [place], [address], Provider Name:Melvin Borrego Pelayo, 2021-03-21 01:30:00 PM, [address] [facility], , [place], [address], Insurance Providers Payer Name Payer Address Payer Phone Insured Name Patient Relati onship to Insured Coverage Start Date Coverage End Date MEDICARE BLUE O [phone] [address] E[place] SMART self
--- OUTSIDE RECORDS SUMMARY | 2021-05-16 06:13 | CCD ---
Author Author [facility] Organization [facility] Address Unknown Phone Unavailable Care Team Providers Care [employer]ging [employer] Executive Name Role Phone Melvin Pelayo Unavailable PROBLEMS Type Condition ICD9-CM Code [id number] Code Onset Dates Condition S tatus W/U Status Risk SNOMED Code Notes Problem Arthritis M19.90 Active confirmed 7735147 Problem Morbid obesity due to excess calories E66.01 Ac tive confirmed 324045437 Problem Generalized edema R60.1 Active confirmed 27 8807013 Problem History of bladder cancer Z85.51 Active confirmed 045135546 Problem Acrochordon L91.8 Active confirmed 13054943 2 Problem Chronic low back pain M54.5 Active confirmed 710743143 Problem Hip arthritis M16.10 Active confirmed 382524 06 Problem Other chronic pain G89.29 Active confirmed 8 0780509 Problem Type 2 diabetes mellitus wit hout complication, without long-term current use of insulin E11.9 Active confirmed 353646524 Problem Essential hypertension I10 Active confirmed 48323873 Problem Mixed hyperlipidemia E78.2 Active confirmed 431407169 Problem Seborrheic keratoses L82.1 Active confirmed 063406085 ALLERGIES Allergen (clinical drug ingredient) Drug/Non Drug Allergy do cumented on EMR Reaction Allergy Type Onset Date Status Codeine Phosphate (For Allergies Use Only) Unknown Drug Allergy Active ENCOUNTERS from 1950 to 2021-03-12 Encounter Location Date Provider Diagnosis [facility] [address] [facility] [phone] [place] [address] 13 Feb, 2021 Melvin Pelayo Hip arthritis M16.10 IMMUNIZATIONS Vaccine [...] Education Language: Question Answer Notes Languages spoken: Angolan Lutheran: Question Answer Notes Lutheran 06 Mormonism Sexual Hx: Question Answer Notes Had sex [...] Notes Start Da te End Date Status Magnesium 300 MG 1 capsule with a meal Orally Once a day for 30 day(s) UNSURE OF DOSE - OTC Active Glucosamine 500 MG 1 capsule with a meal Orally Twice a day UNSURE OF DOSE - OTC Active Vitamin D3 10 MCG (400 UNIT) 1 tablet Orally Once a day for 30 day(s) UNSURE OF DOSE - OTC Active oxyCODONE-Acetaminophen 5-325 MG 1-2 tablet as needed Orally every 6 hrs for 30 days Take 1-2 tablets for severe pain (8-10/10) as neededDx : M16.10 13 Feb, 2021 Active Amoxicillin 875 MG 1 tablet Orally every 12 hrs for 14 day(s) Sep, Not-Taking glipiZIDE 5 MG TAKE 1 TABLET BY MOUTH EVERY DAY 30 MINUTES BEFORE BREAKFAST for 90 Active Chromium 50 MCG as directed Orally UNSURE OF DOSE - OTC Active FreeStyle Lite Test - USE DIRECTED THREE TIMES A DAY for 66 Active Amoxicillin-Pot Clavulanate 875-125 MG 1 tablet Orally every 12 hrs for 10 day(s) Jan, Not-Taking Lasix 40 MG 1 tablet Orally Once a day as needed for 90 days Active Tamsulosin HCl 0.4 MG 1 capsule Orally Once a day for 90 days Active traMADol-Acetaminophen 37.5-325 MG 2 tablets as needed Orally every 8 hrs as needed MDD 6 for 30 days Sep, Not-Reji ing FreeStyle Lancets - as directed DX:E11.9 three times daily for 30 day s Active Lisinopril 5 MG 2 tablets Orally twice daily for 90 Not-Taking Ibuprofen 200 MG 2 tablet with food or milk as needed Ora lly Three times a day Active FreeStyle Lite Test - as directed DX:E11.9 three times daily for 30 d ays Active Nabumetone 750 MG 1 tablet Orally Twice a day for 90 Not-Taking Fluticasone Propionate 50 MCG/ACT 1 spray in each nost ril Nasally Once a day for 30 Not-Taking metFORMIN HCl 1000 1 tablet with meals Orally Twice a day for 90 Active Zinc 25 MG 1 tablet Orally Once a day for 30 day(s) UNSURE OF DOSE - OTC Active Viagra 50 MG 1 tablet as needed Orally Once a day for 30 day(s) Active Simvastatin 40 MG 1 tablet in the evening Orally Once a day for 90 da ys Active One touch ultra blue Misc 1 strip _ E11.9, 2-3 times daily Active FreeStyle Lancets - USE DIRECTED THREE TIMES A DAY for 66 Active FreeStyle Lite - as directed DX:E11.9 once daily for 100 days Jun, Active predniSONE 20 MG 1 tablet Orally Once a day for 10 day(s) Jan, Not-Taking PROCEDURES No Information RESULTS No Results REASON FOR VISIT REFILL MEDICAL (GENERAL) HISTORY Type Description Date Medical [...] Notes Treatment Notes Treatm ent Clinical Notes Feb, Hip arthritis (ICD-10 - M16.10) PLAN OF TREATMENT Medication Medication Name Sig Start Date Stop Date FreeStyle Lite Test - as directed DX:E11.9 three times daily for 30 days Lasix 40 MG 1 tablet Orally Once a day as needed for 90 days oxyCODONE-Acetaminophen 5-325 MG 1-2 tablet as needed Orally every 6 hrs for 30 days Feb, Lizy Acosta - as directed DX:E11.9 three times daily for 3 0 days Next Appt Details Provider Name:Melvin Borrego Pelayo, 2021-04-05 10:00:00 AM, [address] [facility], , [place], [address], Insurance Providers Payer Name Payer Address Payer Phone Insured Name Patient Relati onship to Insured Coverage Start Date Coverage End Date MEDICARE BLUE PPO [address] [facility] [id number] [address] EMANI SMART self
--- OUTSIDE RECORDS SUMMARY | 2021-05-16 06:13 | CCD ---
Author Author [facility] Organization [facility] Address Unknown Phone Unavailable Care Team Providers Care Watermaster Name Role Phone Melvin Pelayo Unavailable PROBLEMS Type Condition ICD9-CM Code [id number] Code Onset Dates Condition S tatus W/U Status Risk SNOMED Code Notes Problem Arthritis M19.90 Active confirmed 5565679 Problem Morbid obesity due to excess calories E66.01 Ac tive confirmed 888201246 Problem Generalized edema R60.1 Active confirmed 27 7825716 Problem History of bladder cancer Z85.51 Active confirmed 529917037 Problem Acrochordon L91.8 Active confirmed 23220881 2 Problem Chronic low back pain M54.5 Active confirmed 805201097 Problem Hip arthritis M16.10 Active confirmed 536143 06 Problem Other chronic pain G89.29 Active confirmed 8 3036777 Problem Type 2 diabetes mellitus wit hout complication, without long-term current use of insulin E11.9 Active confirmed 768713993 Problem Essential hypertension I10 Active confirmed 78560372 Problem Mixed hyperlipidemia E78.2 Active confirmed 105802735 Problem Seborrheic keratoses L82.1 Active confirmed 045038900 ALLERGIES Allergen (clinical drug ingredient) Drug/Non Drug Allergy do cumented on EMR Reaction Allergy Type Onset Date Status Codeine Phosphate (For Allergies Use Only) Unknown Drug Allergy Active ENCOUNTERS from 1950 to 2021-03-14 Encounter Location Date Provider Diagnosis [facility] [address] [facility] [phone] [place] [address] 08 Feb, 2021 Melvin Pelayo Type 2 diabetes mellitus wit hout complication, without long-term current use of insulin E11.9 ; Hip arthritis M16.10 ; Left shoulder pain, unspecified chronicity M25.512 and Leg swelling M79.89 IMMUNIZATIONS Vaccine Route Administration Date Status Influenza [...] Education Language: Question Answer Notes Languages spoken: Faroese Congregational: Question Answer Notes Congregational 06 Yazidism Sexual Hx: Question Answer Notes Had sex in the last 12 months (vaginal, oral, or anal)? Yes with Women only Use protection? No Drug and Alcohol Question Answer Notes Total Score: 0 Interpretation: No problems reported BMI Care Goal Follow-Up Question Answer Notes Above Normal BMI Follow-Up Dietary management educatio n, guidance, and counseling REASON FOR REFERRAL from 1950 to 2021-03-14 Reason Please evaluate and treat as needed Diagnosis 1 Hip arthritis (M16.10) Diagnosis 2 Left shoulder pain, unspecif ied chronicity (M25.512) Referral Organization [facility] Do Referring Provider First Name Melvin Referring Provider Last Name Pierce Referring Provider Specialty Family Medicine Referred Provider Ted Duran Referred Provider Specialty Orthopedic Surgery Referral Priority Urgent Referral Appointment Date 2021-03-16 General Notes Kiki Kitchen 03/07/2021 2:23 :06 PM > Sent VITAL SIGNS Weight 245.6 lbs Feb, Weight-kg 111.4 kg Feb, Height 5'9" in Feb, BMI 36.26 kg/m2 Feb, Heart Rate 92 /min Feb, Respiratory Rate 18 /min Feb, Temperature 97.2 degrees Fahrenheit Feb, Oximetry 97 Feb, Blood pressure systolic 127 mm Hg Feb, Blood pressure diastolic 82 mm Hg Feb, MEDICATIONS Medication SIG (Take, Route, Frequency, Duration) [...] days Take 1-2 tablets for severe pain (8-10) as neededDx : M16.10 13 Feb, 2021 [...] Information RESULTS No Results REASON FOR VISIT worsening hip pain/swollen ankles MEDICAL (GENERAL) HISTORY Type Description Date Medical [...] Treatment Notes Treatm ent Clinical Notes Feb, Type 2 diabetes mellitus wit hout complication, without long-term current use of insulin (ICD-10 - E11.9) Continue to monitor levels at home. Will discuss at next visit. Have labs done for that visit as well. Patient understood. Feb, Hip arthritis (ICD-10 - M16.10) Patient notes pain has worsended since switching pain medications. Adjusting today. Increase to 1-2 tablets every 6 hours. Only take 2 tablets if pain severe, unable to control with 1 tablet. Patient understood. Placing referral to ortho locally since that was not placed at last visit. Will see if can get in soon for evaluation. Feb, Left shoulder pain, unspecified chronicity (ICD- 10 - M25.512) History of shoulder pain for a while. Pain worse lately after labor. Also noticicing limiting range of motion, refer to ortho at this time as well. Feb, Leg swelling (ICD-10 - M79.89) History of leg swelling from dependent edema. Likely cause of this as well. Use lasix as needed, has some at home. Call if need refill. If not beneficial/ worse to call back office/ discuss future visit. PLAN OF TREATMENT Medication Medication Name Sig Start Date Stop Date FreeStyle Lite Test - as directed DX:E11.9 three times daily for 30 days Lasix 40 MG 1 tablet Orally Once a day as needed for 90 days oxyCODONE-Acetaminophen 5-325 MG 1-2 tablet as needed Orally every 6 hrs for 30 days Feb, FreeStyle Lancets - as directed DX:E11.9 three times daily for 3 0 days Treatment Notes Assessment Notes Clinical Notes Type 2 diabetes mellitus without complic ation, without long-term current use of insulin Continue to monitor levels a t home. Will discuss at next visit. Have labs done for that visit as well. Patient understood. Hip arthritis Patient notes pain h as worsended since switching pain medications. Adjusting today. Increase to 1-2 tablets every 6 hours. Only take 2 tablets if pain severe, unable to control with 1 tablet. Patient un derstood.Placing referral to ortho locally since that was not placed at last visit. Will see if can get in soon for evaluation. Left shoulder pain, unspecified chronicity History of shoulder pain for a while. Pain worse lately after labor. Also noticicing limiting range of motion, refer to ortho at this time as well. Leg swelling History of leg swell ing from dependent edema. Likely cause of this as well. Use lasix as needed, has some at home. Call if need refill. If not beneficial/ worse to call back office/ discuss future visit. Referrals Referral Date Details 2021-03-16 2021-03-16, Please evaluate and treat as needed, [facility] Next Appt Details 1 mth Reason: Provider Name:Melvin Pelayo, 2021-04-05 10:00:00 AM, [address] [facility], , [place], [address], Insurance Providers Payer Name Payer Address Payer Phone Insured Name Patient Relati onship to Insured Coverage Start Date Coverage End Date MEDICARE BLUE PPO [id number] [facility] [id number] [address] EMANI SMART self
--- OUTSIDE RECORDS SUMMARY | 2021-05-16 06:13 | CCD ---
Author Author [facility] Organization [facility] Address Unknown Phone Unavailable Care Team Providers Care Electrical Installer Name Role Phone Raymundo, R Tracee TURNSTILE ATTENDANT Unavailable Unavailable Raymundo, R Tracee TURNSTILE ATTENDANT Unavailable Unavailable Raymundo, R Tracee TURNSTILE ATTENDANT Unavailable Unavailable Raymundo, R Tracee TURNSTILE ATTENDANT Unavailable Unavailable Raymundo, R Tracee TURNSTILE ATTENDANT Unavailable Unavailable Raymundo, R Tracee TURNSTILE ATTENDANT Unavailable Unavailable Raymundo, R Tracee TURNSTILE ATTENDANT Unavailable Unavailable Raymundo, R Tracee TURNSTILE ATTENDANT Unavailable Unavailable Raymundo, R Tracee TURNSTILE ATTENDANT Unavailable Unavailable Raymundo, R Tracee TURNSTILE ATTENDANT Unavailable Unavailable Raymundo, R Tracee TURNSTILE ATTENDANT Unavailable Unavailable Raymundo, R Tracee TURNSTILE ATTENDANT Unavailable Unavailable Raymundo, R Tracee TURNSTILE ATTENDANT Unavailable Unavailable Raymundo, R Tracee TURNSTILE ATTENDANT Unavailable Unavailable Raymundo, R Tracee TURNSTILE ATTENDANT Unavailable Unavailable Raymundo, R Tracee TURNSTILE ATTENDANT Unavailable Unavailable Raymundo, R Tracee TURNSTILE ATTENDANT Unavailable Unavailable Raymundo, R Tracee TURNSTILE ATTENDANT Unavailable Unavailable Raymundo, R Tracee TURNSTILE ATTENDANT Unavailable Unavailable Raymundo, R Tracee TURNSTILE ATTENDANT Unavailable Unavailable Raymundo, R Tracee TURNSTILE ATTENDANT Unavailable Unavailable Raymundo, R Tracee TURNSTILE ATTENDANT Unavailable Unavailable Raymundo, R Tracee TURNSTILE ATTENDANT Unavailable Unavailable Raymundo, R Tracee TURNSTILE ATTENDANT Unavailable Unavailable Raymundo, R Tracee TURNSTILE ATTENDANT Unavailable Unavailable Raymundo, R Tracee TURNSTILE ATTENDANT Unavailable Unavailable Raymundo, R Tracee TURNSTILE ATTENDANT Unavailable Unavailable Raymundo, R Tracee TURNSTILE ATTENDANT Unavailable Unavailable Raymundo, R Tracee TURNSTILE ATTENDANT Unavailable Unavailable Raymundo, R Tracee TURNSTILE ATTENDANT Unavailable Unavailable Raymundo, R Tracee TURNSTILE ATTENDANT Unavailable Unavailable Raymundo, R Tracee TURNSTILE ATTENDANT Unavailable Unavailable Raymundo, R Tracee TURNSTILE ATTENDANT Unavailable Unavailable Mollison, Mojgan Jean MD Unavailable Unavailable Mollison, Mojgan Jean MD Unavailable Unavailable Mollison, Mojgan Jean MD Unavailable Unavailable Mollison, Mojgan Jean MD Unavailable Unavailable Mollison, Mojgan Jean MD Unavailable Unavailable Mollison, Mojgan Jean MD Unavailable Unavailable Mollison, Mojgan Jean MD Unavailable Unavailable Mollison, Mojgan Jean MD Unavailable Unavailable Mollison, Mojgan Jean MD Unavailable Unavailable Mollison, Mojgan Jean MD Unavailable Unavailable Mollison, Mojgan Jean MD Unavailable Unavailable Mollison, Mojgan Jean MD Unavailable Unavailable Mollison, Mojgan Jean MD Unavailable Unavailable Mollison, Mojgan Jean MD Unavailable Unavailable Mollison, Mojgan Jean MD Unavailable Unavailable Mollison, Mojgan Jean MD Unavailable Unavailable Mollison, Mojgan Jean MD Unavailable Unavailable Mollison, Mojgan Jean MD Unavailable Unavailable Mollison, Mojgan Jean MD Unavailable Unavailable Mollison, Mojgan Jean MD Unavailable Unavailable Mollison, Mojgan Jean MD Unavailable Unavailable Mollison, Mojgan Jean MD Unavailable Unavailable Mollison, Mojgan Jean MD Unavailable Unavailable Mollison, Mojgan Jean MD Unavailable Unavailable Mollison, Mojgan Jean MD Unavailable Unavailable Mollison, Mojgan Jean MD Unavailable Unavailable Mollison, Mojgan Jean MD Unavailable Unavailable Mollison, Mojgan Jean MD Unavailable Unavailable Mollison, Mojgan Jean MD Unavailable Unavailable Mollison, Mojgan Jean MD Unavailable Unavailable PACKFRANCIA MD Unavailable Unavailable PACKFRANCIA MD Unavailable Unavailable PACKFRANCIA MD Unavailable Unavailable ALBALA, Kenneth ALEXANDER MD Unavailable Unavailable ALBALA, Kenneth ALEXANDER MD Unavailable Unavailable ALBALA, Kenneth ALEXANDER MD Unavailable Unavailable ALBALA, Kenneth ALEXANDER MD Unavailable Unavailable ALBALA, Kenneth ALEXANDER MD Unavailable Unavailable ALBJACKIE, Kenneth ALEXANDER MD Unavailable Unavailable ALBJACKIE, Kenneth ALEXANDER MD Unavailable Unavailable ALBALAKenneth MD Unavailable Unavailable ALBALA, Kenneth ALEXANDER MD Unavailable Unavailable ALBALA, Kenneth ALEXANDER MD Unavailable Unavailable ALBALA, Kenneth ALEXANDER MD Unavailable Unavailable ALBALA, Kenneth ALEXANDER MD Unavailable Unavailable ALBALAKenneth MD Unavailable Unavailable ALBALAKenneth MD Unavailable Unavailable ALBKenneth MEJIA MD Unavailable Unavailable ALBKenneth MEJIA MD Unavailable Unavailable ALBALAKenneth MD Unavailable Unavailable ALBALA, Kenneth ALEXANDER MD Unavailable Unavailable ALBALA, Kenneth ALEXANDER MD Unavailable Unavailable ALBALA, Kenneth ALEXANDER MD Unavailable Unavailable ALBALA, Kenneth ALEXANDER MD Unavailable Unavailable ALBALA, Kenneth ALEXANDER MD Unavailable Unavailable ALBJACKIE, Kenneth ALEXANDER MD Unavailable Unavailable ALBJACKIE, Kenneth ALEXANDER MD Unavailable Unavailable ALBALA, Kenneth ALEXANDER MD Unavailable Unavailable ALBALA, Kenneth ALEXANDER MD Unavailable Unavailable ALBALA, Kenneth ALEXANDER MD Unavailable Unavailable ALBALA, Kenneth ALEXANDER MD Unavailable Unavailable ALBALA, Kenneth ALEXANDER MD Unavailable Unavailable ALBALA, Kenneth ALEXANDER MD Unavailable Unavailable ALBALA, Kenneth ALEXANDER MD Unavailable Unavailable ALBALA, Kenneth ALEXANDER MD Unavailable Unavailable ALBALA, Kenneth ALEXANDER MD Unavailable Unavailable ALBALA, Kenneth ALEXANDER MD Unavailable Unavailable ALBALA, Kenneth ALEXANDER MD Unavailable Unavailable ALBALA, Kenneth ALEXANDER MD Unavailable Unavailable ALBALA, Kenneth ALEXANDER MD Unavailable Unavailable ALBALA, Kenneth ALEXANDER MD Unavailable Unavailable ALBALA, Kenneth ALEXANDER MD Unavailable Unavailable ALBALA, Kenneth ALEXANDER MD Unavailable Unavailable ALBALA, Kenneth ALEXANDER MD Unavailable Unavailable ALBALA, Kenneth ALEXANDER MD Unavailable Unavailable ALBALA, Kenneth ALEXANDER MD Unavailable Unavailable ALBALA, Kenneth ALEXANDER MD Unavailable Unavailable ALBALA, Kenneth ALEXANDER MD Unavailable Unavailable ALBALA, Kenneth ALEXANDER MD Unavailable Unavailable ALBALA, Kenneth ALEXANDER MD Unavailable Unavailable ALBALA, Kenneth ALEXANDER MD Unavailable Unavailable ALBALA, Kenneth ALEXANDER MD Unavailable Unavailable ALBALA, Kenneth ALEXANDER MD Unavailable Unavailable ALBALA, Kenneth ALEXANDER MD Unavailable Unavailable ALBALA, Kenneth ALEXANDER MD Unavailable Unavailable ALBALA, Kenneth ALEXANDER MD Unavailable Unavailable ALBALA, Kenneth ALEXANDER MD Unavailable Unavailable ALBALA, Kenneth ALEXANDER MD Unavailable Unavailable ALBALA, Kenneth ALEXANDER MD Unavailable Unavailable ALBALA, Kenneth ALEXANDER MD Unavailable Unavailable ALBALA, Kenneth ALEXANDER MD Unavailable Unavailable ALBALA, Kenneth ALEXANDER MD Unavailable Unavailable ALBALA, Kenneth ALEXANDER MD Unavailable Unavailable ALBALA, Kenneth ALEXANDER MD Unavailable Unavailable ALBALA, Kenneth ALEXANDER MD Unavailable Unavailable ALBALA, Kenneth ALEXANDER MD Unavailable Unavailable ALBALA, Kenneth ALEXANDER MD Unavailable Unavailable ALBALA, Kenneth ALEXANDER MD Unavailable Unavailable ALBALA, Kenneth ALEXANDER MD Unavailable Unavailable ALBALA, Kenneth ALEXANDER MD Unavailable Unavailable ALBALA, Kenneth ALEXANDER MD Unavailable Unavailable ALBALA, Kenneth ALEXANDER MD Unavailable Unavailable ALBALA, Kenneth ALEXANDER MD Unavailable Unavailable ALBALA, Kenneth ALEXANDER MD Unavailable Unavailable ALBALA, Kenneth ALEXANDER MD Unavailable Unavailable ALBALA, Kenneth ALEXANDER MD Unavailable Unavailable ALBALA, Kenneth ALEXANDER MD Unavailable Unavailable ALBALA, Kenneth ALEXANDER MD Unavailable Unavailable ALBALA, Kenneth ALEXANDER MD Unavailable Unavailable ALBALA, Kenneth ALEXANDER MD Unavailable Unavailable ALBALA, Kenneth ALEXANDER MD Unavailable Unavailable ALBALA, Kenneth ALEXANDER MD Unavailable Unavailable ALBALA, Kenneth ALEXANDER MD Unavailable Unavailable ALBALA, Kenneth ALEXANDER MD Unavailable Unavailable ALBALA, Kenneth ALEXANDER MD Unavailable Unavailable ALBALA, Kenneth ALEXANDER MD Unavailable Unavailable ALBALA, Kenneth ALEXANDER MD Unavailable Unavailable ALBALA, Kenneth ALEXANDER MD Unavailable Unavailable ALBALA, Kenneth ALEXANDER MD Unavailable Unavailable ALBALA, Kenneth ALEXANDER MD Unavailable Unavailable ALBALA, Kenneth ALEXANDER MD Unavailable Unavailable ALBALA, Kenneth ALEXANDER MD Unavailable Unavailable ALBALA, Kenneth ALEXANDER MD Unavailable Unavailable ALBALA, Kenneth ALEXANDER MD Unavailable Unavailable ALBALA, Kenneth ALEXANDER MD Unavailable Unavailable ALBALA, Kenneth ALEXANDER MD Unavailable Unavailable Bogosian, Landon Pickard MD Unavailable Unavailable Bogosian, Landon Pickard MD Unavailable Unavailable Bogosian, Landon Pickard MD Unavailable Unavailable Bogosian, Landon Pickard MD Unavailable Unavailable Bogosian, Landon Pickard MD Unavailable Unavailable Bogosian, Landon Pickard MD Unavailable Unavailable Bogosian, Landon Pickard MD Unavailable Unavailable Bogosian, Landon Pickard MD Unavailable Unavailable Bogosian, Landon Pickard MD Unavailable Unavailable Bogosian, Landon Pickard MD Unavailable Unavailable Bogosian, Landon Pickard MD Unavailable Unavailable Bogosian, Landon Pickard MD Unavailable Unavailable Bogosian, Landon Pickard MD Unavailable Unavailable Bogosian, Landon Pickard MD Unavailable Unavailable Bogosian, Landon Pickard MD Unavailable Unavailable Bogosian, Landon Pickard MD Unavailable Unavailable Bogosian, Landon Pickard MD Unavailable Unavailable Bogosian, Landon Pickard MD Unavailable Unavailable Bogosian, Landon Pickard MD Unavailable Unavailable Bogosian, Landon Pickard MD Unavailable Unavailable Bogosian, Landon Pickard MD Unavailable Unavailable Bogosian, Landon Pickard MD Unavailable Unavailable Bogosian, Landon Pickard MD Unavailable Unavailable Bogosian, Landon Pickard MD Unavailable Unavailable Bogosian, Landon Pickard MD Unavailable Unavailable Bogosian, Landon Pickard MD Unavailable Unavailable Bogosian, Landon Pickard MD Unavailable Unavailable Bogosian, Landon Pickard MD Unavailable Unavailable Bogosian, Landon Pickard MD Unavailable Unavailable Bogosian, Landon Pickard MD Unavailable Unavailable Bogosian, Landon Pickard MD Unavailable Unavailable Bogosimarianela, Landon Pickard MD Unavailable Unavailable Bogosian, Landon Pickard MD Unavailable Unavailable Bogosian, Landon Pickard MD Unavailable Unavailable Bogosian, Landon Pickard MD Unavailable Unavailable Bogosimarianela, Landon Pickard MD Unavailable Unavailable Bogosimarianela, Landon Pickard MD Unavailable Unavailable Bogosimarianela, Landon Pickard MD Unavailable Unavailable Bogosimarianela, Landon Pickard MD Unavailable Unavailable Bogosian, Ladnon Pickard MD Unavailable Unavailable Bogosian, Landon Pickard MD Unavailable Unavailable Bogosian, Landon Pickard MD Unavailable Unavailable Bogosimarianela, Landon Pickard MD Unavailable Unavailable Bogosimarianela, Landon Pickard MD Unavailable Unavailable Bogchetna, Landon Pickard MD Unavailable Unavailable Bogosimarianela, Landon Pickard MD Unavailable Unavailable Bogosian, Landon Pickard MD Unavailable Unavailable Bogosian, Landon Pickard MD Unavailable Unavailable Bogosian, Landon Pickard MD Unavailable Unavailable BogosiLandon bear MD Unavailable Unavailable BogosiLandon bear MD Unavailable Unavailable BogosiLandon bear MD Unavailable Unavailable BogosiLandon bear MD Unavailable Unavailable BogosiLandon bear MD Unavailable Unavailable BogosiLandon bear MD Unavailable Unavailable BogosiLandon bear MD Unavailable Unavailable BogosiLandon bear MD Unavailable Unavailable BogosiLandon bear MD Unavailable Unavailable BogosiLandon bear MD Unavailable Unavailable BogosiLandon bear MD Unavailable Unavailable BogosianLandon MD Unavailable Unavailable BogosiLandon bear MD Unavailable Unavailable BogosianLandon MD Unavailable Unavailable BogosiLandon bear MD Unavailable Unavailable BogosianLandon MD Unavailable Unavailable BogosianLandon MD Unavailable Unavailable BogosianLandon MD Unavailable Unavailable BogosiLandon bear MD Unavailable Unavailable BogosiLandon bear MD Unavailable Unavailable BogosiLandon bear MD Unavailable Unavailable BogosiLandon bear MD Unavailable Unavailable BogosiLandon bear MD Unavailable Unavailable BogosiLandon bear MD Unavailable Unavailable BogosiLandon bear MD Unavailable Unavailable BogosiLandon bear MD Unavailable Unavailable BrynnosiLandon bear MD Unavailable Unavailable Landon Palmer MD Unavailable Unavailable BrynnosiLandon bear MD Unavailable Unavailable Landon Palmer MD Unavailable Unavailable Gilles Yanez MD Unavailable Unavailable Gilles Yanez MD Unavailable Unavailable Gilles Yanez MD Unavailable Unavailable Gilles Yanez MD Unavailable Unavailable Gilles Yanez MD Unavailable Unavailable Gilles Yanez MD Unavailable Unavailable Gilles Yanez MD Unavailable Unavailable iGlles Yanez MD Unavailable Unavailable Gilles Yanez MD Unavailable Unavailable Gilles Yanez MD Unavailable Gilles Ng MD Unavailable Unavailable Gilles Yanez MD Unavailable Gilles Ng MD Unavailable Gilles Ng MD Unavailable Gilles Ng MD Unavailable Unavailable Gilles Yanez MD Unavailable Unavailable Gilles Yanez MD Unavailable Unavailable Gilles Yanez MD Unavailable Gilles Ng MD Unavailable Gilles Ng MD Unavailable Gilles Ng MD Unavailable Unavailable Gilles Yanez MD Unavailable Unavailable Gilles Yanez MD Unavailable Unavailable Gilles Yanez MD Unavailable Unavailable Gilles aYnez MD Unavailable Unavailable Gilles Yanez MD Unavailable Unavailable Gilles Yanez MD Unavailable Unavailable Gilles Yanez MD Unavailable Unavailable Gilles Yanez MD Unavailable Unavailable Gilles Yanez MD Unavailable Unavailable Gilles Yanez MD Unavailable Unavailable Gilles Yanez MD Unavailable Unavailable Gilles Yanez MD Unavailable Unavailable Gilles Yanez MD Unavailable Unavailable Gilles Yanez MD Unavailable Unavailable Gilles Yanez MD Unavailable Unavailable Gilles Yanez MD Unavailable Unavailable Gilles Yanez MD Unavailable Unavailable Gilles Yanez MD Unavailable Unavailable Gilles Yanez MD Unavailable Unavailable Gilles Yanez MD Unavailable Unavailable Gilles Yanez MD Unavailable Unavailable Gilles Yanez MD Unavailable Unavailable Gilles Yanez MD Unavailable Unavailable Gilles Yanez MD Unavailable Unavailable Gilles Yanez MD Unavailable Unavailable Gilles Yanez MD Unavailable Unavailable Gilles Yanez MD Unavailable Unavailable Gilles Yanez MD Unavailable Unavailable Gilles Yanez MD Unavailable Unavailable Gilles Yanez MD Unavailable Unavailable Gilles Yanez MD Unavailable Unavailable Gilles Yanez MD Unavailable Unavailable Gilles Yanez MD Unavailable Unavailable Gilles Yanez MD Unavailable Unavailable Gilles Yanez MD Unavailable Unavailable Gilles Yanez MD Unavailable Unavailable Gilles Yanez MD Unavailable Unavailable Gilles Yanez MD Unavailable Unavailable Gilles Yanez MD Unavailable Unavailable Gilles Yanez MD Unavailable Unavailable Gilles Yanez MD Unavailable Unavailable Gilles Yanez MD Unavailable Unavailable Gilles Yanez MD Unavailable Unavailable Gilles Yanez MD Unavailable Unavailable Gilles Yanez MD Unavailable Unavailable Gilles Yanez MD Unavailable Unavailable Gilles Yanez MD Unavailable Unavailable Gilles Yanez MD Unavailable Unavailable Gilles Yanez MD Unavailable Unavailable Gilles Yanez MD Unavailable Unavailable Gilles Yanez MD Unavailable Unavailable Gilles Yanez MD Unavailable Unavailable Gilles Yanez MD Unavailable Unavailable Gilles Yanez MD Unavailable Unavailable Gilles Yanez MD Unavailable Unavailable Gilles Yanez MD Unavailable Unavailable Gilles Yanez MD Unavailable Unavailable Gilles Yanez MD Unavailable Unavailable CHARLENE REGAN MD Unavailable Unavailable CHARLENE REGAN MD Unavailable Unavailable CHARLENE REGAN MD Unavailable Unavailable CHARLENE REGAN MD Unavailable Unavailable CHARLENE REGAN MD Unavailable Unavailable CHARLENE REGAN MD Unavailable Unavailable CHARLENE REGAN MD Unavailable Unavailable CHARLENE REGAN MD Unavailable Unavailable CHARLENE REGAN MD Unavailable Unavailable CHARLENE REGAN MD Unavailable Unavailable CHARLENE REGAN MD Unavailable Unavailable CHARLENE REGAN MD Unavailable Unavailable CHARLENE REGAN MD Unavailable Unavailable KHAIRALLAH, RAMZI MD Unavailable Unavailable KHAIRALLAH, RAMZI MD Unavailable Unavailable KHAIRALLAH, RAMZI MD Unavailable Unavailable KHAIRALLAH, RAMZI MD Unavailable Unavailable KHAIRALLAH, RAMZI MD Unavailable Unavailable KHAIRALLAH, RAMZI MD Unavailable Unavailable KHAIRALLAH, RAMZI MD Unavailable Unavailable KHAIRALLAH, RAMZI MD Unavailable Unavailable KHAIRALLAH, RAMZI MD Unavailable Unavailable KHAIRALLAH, RAMZI MD Unavailable Unavailable KHAIRALLAH, RAMZI MD Unavailable Unavailable KHAIRALLAH, RAMZI MD Unavailable Unavailable KHAIRALLAH, RAMZI MD Unavailable Unavailable KHAIRALLAH, RAMZI MD Unavailable Unavailable KHAIRALLAH, RAMZI MD Unavailable Unavailable KHAIRALLAH, RAMZI MD Unavailable Unavailable KHAIRALLAH, RAMZI MD Unavailable Unavailable KHAIRALLAH, RAMZI MD Unavailable Unavailable KHAIRALLAH, RAMZI MD Unavailable Unavailable KHAIRALLAH, RAMZI MD Unavailable Unavailable KHAIRALLAH, RAMZI MD Unavailable Unavailable KHAIRALLAH, RAMZI MD Unavailable Unavailable KHAIRALLAH, RAMZI MD Unavailable Unavailable KHAIRALLAH, RAMZI MD Unavailable Unavailable KHAIRALLAH, RAMZI MD Unavailable Unavailable KHAIRALLAH, RAMZI MD Unavailable Unavailable KHAIRALLAH, RAMZI MD Unavailable Unavailable KHAIRALLAH, RAMZI MD Unavailable Unavailable KHAIRALLAH, RAMZI MD Unavailable Unavailable KHAIRALLAH, RAMZI MD Unavailable Unavailable KHAIRALLAH, RAMZI MD Unavailable Unavailable KHAIRALLAH, RAMZI MD Unavailable Unavailable KHAIRALLAH, RAMZI MD Unavailable Unavailable KHAIRALLAH, RAMZI MD Unavailable Unavailable KHAIRALLAH, RAMZI MD Unavailable Unavailable KHAIRALLAH, RAMZI MD Unavailable Unavailable KHAIRALLAH, RAMZI MD Unavailable Unavailable KHAIRALLAH, RAMZI MD Unavailable Unavailable KHAIRALLAH, RAMZI MD Unavailable Unavailable KHAIRALLAH, RAMZI MD Unavailable Unavailable KHAIRALLAH, RAMZI MD Unavailable Unavailable KHAIRALLAH, RAMZI MD Unavailable Unavailable KHAIRALLAH, RAMZI MD Unavailable Unavailable KHAIRALLAH, RAMZI MD Unavailable Unavailable KHAIRALLAH, RAMZI MD Unavailable Unavailable KHAIRALLAH, RAMZI MD Unavailable Unavailable KHAIRALLAH, RAMZI MD Unavailable Unavailable KHAIRALLAH, RAMZI MD Unavailable Unavailable KHAIRALLAH, RAMZI MD Unavailable Unavailable KHAIRALLAH, RAMZI MD Unavailable Unavailable KHAIRALLAH, RAMZI MD Unavailable Unavailable KHAIRALLAH, RAMZI MD Unavailable Unavailable KHAIRALLAH, RAMZI MD Unavailable Unavailable KHAIRALLAH, RAMZI MD Unavailable Unavailable KHAIRALLAH, RAMZI MD Unavailable Unavailable KHAIRALLAH, RAMZI MD Unavailable Unavailable KHAIRALLAH, RAMZI MD Unavailable Unavailable KHAIRALLAH, RAMZI MD Unavailable Unavailable KHAIRALLAH, RAMZI MD Unavailable Unavailable KHAIRALLAH, RAMZI MD Unavailable Unavailable KHAIRALLAH, RAMZI MD Unavailable Unavailable KHAIRALLAH, RAMZI MD Unavailable Unavailable KHAIRALLAH, RAMZI MD Unavailable Unavailable KHAIRALLAH, RAMZI MD Unavailable Unavailable KHAIRALLAH, RAMZI MD Unavailable Unavailable KHAIRALLAH, RAMZI MD Unavailable Unavailable KHAIRALLAH, RAMZI MD Unavailable Unavailable KHAIRALLAH, RAMZI MD Unavailable Unavailable KHAIRALLAH, RAMZI MD Unavailable Unavailable KHAIRALLAH, RAMZI MD Unavailable Unavailable KHAIRALLAH, RAMZI MD Unavailable Unavailable KHAIRALLAH, RAMZI MD Unavailable Unavailable KHAIRALLAH, RAMZI MD Unavailable Unavailable KHAIRALLAH, RAMZI MD Unavailable Unavailable KHAIRALLAH, RAMZI MD Unavailable Unavailable KHAIRALLAH, RAMZI MD Unavailable Unavailable Re-disclosure Warning The records that you are about to access may contain information from federally-assisted alcohol or drug abuse programs. If such information is present, then the following federally mandated warning applies: This information has been disclosed to you from records protected by federal confidentiality rules (42 CFR part 2). The federal rules prohibit you from making any further disclosure of this information unless further disclosure is expressly permitted by the written consent of the person to whom it pertains or as otherwise permitted by 42 CFR part 2. A general authorization for the release of medical or other information is NOT sufficient for this purpose. The Federal rules restrict any use of the information to criminally investigate or prosecute any alcohol or drug abuse patient.The records that you are about to access may contain highly sensitive health information, the redisclosure of which is protected by Article 27-F of the [facility] Public Health law. If you continue you may have access to information: Regarding HIV / AIDS; Provided by facilities licensed or operated by the [facility] Office of Mental Health; or Provided by the [facility] Office for People With Developmental Disabilities. If such information is present, then the following [facility] mandated warning applies: This information has been disclosed to you from confidential records which are protected by state law. State law prohibits you from making any further disclosure of this information without the specific written consent of the person to whom it pertains, or as otherwise permitted by law. Any unauthorized further disclosure in violation of state law may result in a fine or senior living sentence or both. A general authorization for the release of medical or other information is NOT sufficient authorization for further disc losure. Family History Family Member Name Family Member Gender Family Member Status Date o f Status Description Data Source(s) Unknown Female Problem (finding) 05/04/2015 12:00:00 AM EST NextGen ([facility]) Unknown Unknown Problem [facility] ([facility]) Unknown Unknown Problem [facility] ([facility]) Encounters Encounter Providers Location Date Indications Data Source(s ) Unknown [address] [facility] [id number] 05/14/2021 12:00:00 AM EST [facility] Unknown [address] [facility] [id number] 05/14/2021 12:00:00 AM EST [facility]CW1 ([facility]) Outpatient [address] [facility] [address] 05/09/2021 12:00:00 AM EST [facility]CW1 ([facility]) Unknown [address] [facility] [place] [address] 05/09/2021 12:00:00 AM EST [facility]CW1 ([facility]) Unknown [address] [facility] [address] 04/11/2021 12:00:00 AM EDT [facility]CW1 ([facility]) Outpatient [address] [facility] [place] [address] 04/05/2021 12:00:00 AM EDT [facility]CW1 ([facility]) Unknown [address] [facility] [address] 04/05/2021 12:00:00 AM EDT eCW1 ([facility]) Outpatient Attender: FRANCIA Pena/Tariq/Tano/ Reindl 04/03/2021 11:20:00 AM EDT MEDENT ([facility] Outpatient Attender: FRANCIA Pena/Tariq/Tano/ Reindl 03/20/2021 10:30:00 AM EDT MEDENT ([facility]) Outpatient Attender: Ted Pena/Tariq/Tano/Re indl 03/16/2021 03:00:00 PM EDT [facility]ENT ([facility] [place] [address] [facility] [place] [address] 03/12/2021 12:00:00 AM EDT eCW1 ([facility]) [place] [address] [facility] [place] [address] 03/07/2021 12:00:00 AM EDT [facility] [place] [address] [facility] [place] [address] 03/06/2021 12:00:00 AM EDT eCW1 ([facility]) Outpatient [address] [facility] [address] 02/14/2021 12:00:00 AM EDT eCW1 ([facility]) Unknown [address] [facility] [address] 01/15/2021 12:00:00 AM EDT eCW1 ([facility]) Outpatient [address] [facility] [address] 01/11/2021 12:00:00 AM EDT eCW1 ([facility]) Outpatient Attender: CATHERINE Armenta/ A.M.P. Urology 01/04/2021 10:30:00 AM EDT MEDENT ([facility]) Unknown [address] [facility] [address] 01/04/2021 12:00:00 AM EDT eCW1 ([facility] Unknown [address] [facility] [place] [address] 12/12/2020 12:00:00 AM EDT eCW1 ([facility]) Unknown [address] [facility] [address] 12/11/2020 12:00:00 AM EDT eCW1 ([facility]) Unknown [address] [facility] [address] 11/15/2020 12:00:00 AM EDT eCW1 ([facility]) Outpatient Attender: Neeraj Palmer MDReferrer: Gilles ruiz MD 09/27/2020 07:37:04 AM EDT [facility] Unknown [address] [facility] [place] [address] 09/14/2020 12:00:00 AM EDT eCW1 ([facility]) Unknown [address] [facility] [place] [address] 09/04/2020 12:00:00 AM EST eCW1 ([facility]) Unknown [address] [facility] [place] [address] 08/01/2020 12:00:00 AM EST eCW1 ([facility]) Attender: CHARLENE REGAN MD [facility] 07/11/2020 07:08:00 PM EST - 07/11/2020 07:08:00 PM EST NextGen ( [facility]) Office Visit, Est Pt., Level 3 PC [address] [place] [address] 07/07/2020 12:00:00 AM EST eCW1 ([facility]) Unknown [address] [facility] [place] [address] 07/07/2020 12:00:00 AM EST eCW1 ([facility]) Unknown [address] [facility] [place] [address] 07/07/2020 12:00:00 AM EST eCW1 ([facility]) Unknown [address] [facility] [address] 06/16/2020 12:00:00 AM EST eCW1 ([facility]) Outpatient Attender: rTacee Raymundo NPReferrer: Gilles Yanez MD 06/06/2020 12:58:23 PM EST [facility] Unknown [address] [facility] [place] [address] 05/15/2020 12:00:00 AM EST eCW1 ([facility]) Unknown [address] [facility] [place] [address] 05/04/2020 12:00:00 AM EST eCW1 ([facility]) Outpatient Attender: Neeraj Palmer MDReferrer: Gilles ruiz MD 05/02/2020 02:04:27 PM EST [facility] Recurring Patient Referrer: Gilles Yanez MD 05/01/2020 09:0 6:55 AM EST [facility] Outpatient [address] [facility] [place] [address] 04/20/2020 12:00:00 AM EDT eCW1 ([facility]) Recurring Patient Referrer: Gilles Yanez MD 04/17/2020 10:5 4:14 AM EDT [facility] Unknown [address] [facility] [address] 04/10/2020 12:00:00 AM EDT eCW1 ([facility]) Unknown [address] [facility] [place] [address] 04/03/2020 12:00:00 AM EDT eCW1 ([facility]) Outpatient [address] [facility] [place] [address] 03/31/2020 12:00:00 AM EDT eCW1 ([facility]) Immunizations Vaccine Date Status Description Data Source(s) COVID-19 VACCINE Moderna 09/25/2020 12:00:00 AM EDT completed [facility] Vaccine Series Complete: YESThis Data wa s Submitted to [facility] Via [employer]. COVID-19 VACCINE, MRNA-1273, LNP-S (MODERNA)/PF 09/25/2020 1 2:00:00 AM EDT completed [facility] COVID-19 VACCINE Moderna 08/25/2020 12:00:00 AM EST completed [facility] Vaccine Series Complete: NOThis Data was Submitted to [facility] Via [employer]. COVID-19 VACCINE, MRNA-1273, LNP-S (MODERNA)/PF 08/25/2020 1 2:00:00 AM EST completed [facility] Medications Medication Brand Name Start Date Product Form Dose Route Admi nistrative Instructions Pharmacy Instructions Status Indications Reaction Description Data Source(s) Acetaminophen 325 MG / Oxycodone Hydroch loride 5 MG Oral Tablet oxyCODONE- Acetaminophen 5-325 MG oxyCODONE-Acetaminophen 5-325 MG 05/14/2021 12:00:00 A M EST active oxyCODONE-Acetami nophen 5-325 MG eCW1 ([facility]) Acetaminophen 325 MG / Oxycodone Hydroch loride 5 MG Oral Tablet oxyCODONE- Acetaminophen 5-325 MG oxyCODONE-Acetaminophen 5-325 MG 05/14/2021 12:00:00 A M EST active oxyCODONE-Acetami nophen 5-325 MG eCW1 ([facility]) Acetaminophen 325 MG / Oxycodone Hydroch loride 5 MG Oral Tablet oxyCODONE- Acetaminophen 5-325 MG oxyCODONE-Acetaminophen 5-325 MG 05/14/2021 12:00:00 A M EST active oxyCODONE-Acetami nophen 5-325 MG eCW1 ([facility]) Doxycycline Monohydrate 100 MG Oral Tablet Doxycycline Monoh ydrate 100 MG 04/30/2021 12:00:00 AM EDT 1.0 {tablet} suspende d Doxycycline Monohydrate 100 MG eCW1 ([facility]) Doxycycline Monohydrate 100 MG Oral Tablet Doxycycline Monoh ydrate 100 MG 04/30/2021 12:00:00 AM EDT 1.0 {tablet} suspende d Doxycycline Monohydrate 100 MG eCW1 ([facility]) Doxycycline Monohydrate 100 MG Oral Tablet Doxycycline Monoh ydrate 100 MG 04/30/2021 12:00:00 AM EDT 1.0 {tablet} suspende d Doxycycline Monohydrate 100 MG eCW1 ([facility]) Doxycycline Monohydrate 100 MG Oral Tablet Doxycycline Monoh ydrate 100 MG 04/30/2021 12:00:00 AM EDT 1.0 {tablet} suspende d Doxycycline Monohydrate 100 MG eCW1 ([facility]) Acetaminophen 325 MG / Oxycodone Hydroch loride 5 MG Oral Tablet oxyCODONE- Acetaminophen 5-325 MG oxyCODONE-Acetaminophen 5-325 MG 04/11/2021 12:00:00 A M EDT active oxyCODONE-Acetami nophen 5-325 MG eCW1 ([facility]) Fluticasone Propionate 50 MCG/ACT Fluticasone Propionate 50 MCG/ACT 04/05/2021 12:00:00 AM EDT 1.0 {spray_in_each_nostril} acti ve Fluticasone Propionate 50 MCG/ACT eCW1 ([facility]) Fluticasone Propionate 50 MCG/ACT Fluticasone Propionate 50 MCG/ACT 04/05/2021 12:00:00 AM EDT 1.0 {spray_in_each_nostril} acti ve Fluticasone Propionate 50 MCG/ACT eCW1 ([facility]) Fluticasone Propionate 50 MCG/ACT Fluticasone Propionate 50 MCG/ACT 04/05/2021 12:00:00 AM EDT 1.0 {spray_in_each_nostril} acti ve Fluticasone Propionate 50 MCG/ACT eCW1 ([facility]) Fluticasone Propionate 50 MCG/ACT Fluticasone Propionate 50 MCG/ACT 04/05/2021 12:00:00 AM EDT 1.0 {spray_in_each_nostril} acti ve Fluticasone Propionate 50 MCG/ACT eCW1 ([facility]) Fluticasone Propionate 50 MCG/ACT Fluticasone Propionate 50 MCG/ACT 04/05/2021 12:00:00 AM EDT 1.0 {spray_in_each_nostril} acti ve Fluticasone Propionate 50 MCG/ACT eCW1 ([facility]) Fluticasone Propionate 50 MCG/ACT Fluticasone Propionate 50 MCG/ACT 04/05/2021 12:00:00 AM EDT 1.0 {spray_in_each_nostril} acti ve Fluticasone Propionate 50 MCG/ACT eCW1 ([facility]) Fluticasone Propionate 50 MCG/ACT Fluticasone Propionate 50 MCG/ACT 04/05/2021 12:00:00 AM EDT 1.0 {spray_in_each_nostril} acti ve Fluticasone Propionate 50 MCG/ACT eCW1 ([facility]) Acetaminophen 325 MG / Oxycodone Hydroch loride 5 MG Oral Tablet oxyCODONE- Acetaminophen 5-325 MG oxyCODONE-Acetaminophen 5-325 MG 03/12/2021 12:00:00 A M EDT active oxyCODONE-Acetami nophen 5-325 MG eCW1 ([facility]) Acetaminophen 325 MG / Oxycodone Hydroch loride 5 MG Oral Tablet oxyCODONE- Acetaminophen 5-325 MG oxyCODONE-Acetaminophen 5-325 MG 03/12/2021 12:00:00 A M EDT active oxyCODONE-Acetami nophen 5-325 MG eCW1 ([facility]) Acetaminophen 325 MG / Oxycodone Hydroch loride 5 MG Oral Tablet oxyCODONE- Acetaminophen 5-325 MG oxyCODONE-Acetaminophen 5-325 MG 02/14/2021 12:00:00 A M EDT 1.0 {tablet_as_needed} active o xyCODONE-Acetaminophen 5-325 MG eCW1 ([facility]) Acetaminophen 325 MG / Oxycodone Hydroch loride 5 MG Oral Tablet oxyCODONE- Acetaminophen 5-325 MG oxyCODONE-Acetaminophen 5-325 MG 02/14/2021 12:00:00 A M EDT 1.0 {tablet_as_needed} active o xyCODONE-Acetaminophen 5-325 MG eCW1 ([facility]) Insurance Providers Payer name Policy type / Coverage type Policy ID Covered green party ID Covered green party's relationship to shields Policy Shields Plan Information BCBS Of [facility] Medigap Part B [id number] Self BCBS [facility] Medigap Part B [id number] Self [id number] [place] [id number] Self [id number] [place] [id number] Self [id number] [place] [id number] Self [facility] [employer] Commercial [id number] Self [facility] Medicare Solutions Commercial [id number] Self [facility] Medicare Solutions Commercial [id number] Self [id number] [facility] [employer] Commercial [id number] Self [id number] [facility] O [id number] S [id number] BCBS [employer] Medicare Commercial [id number] Self [id number] [facility] Medicare P [id number] SELF [id number] ANSI-Commercial [id number] ANSI-Medicare Part B [id number] ANSI-Commercial [id number] ANSI-Medicare Part B [id number] ANSI-Medicare Part B [id number] ANSI-Commercial [id number] ANSI-Medicare Part B [id number] ANSI-Medicare Part B [id number] ANSI-Medicare Part B [id number] ANSI-Commercial [id number] ANSI-Medicare Part B [id number] ANSI-Medicare Part B [id number] ANSI-Commercial [id number] ANSI-Commercial [id number] ANSI-Medicare Part B [id number] ANSI-Medicare Part B [id number] ANSI-Medicare Part B [id number] ANSI-Medicare Part B [id number] ANSI-Medicare Part B [id number] ANSI-Medicare Part B [id number] MEDICARE [id number] ANSI-Medicare Part B [id number] ANSI-Medicare Part B [id number] ANSI-Medicare Part B [id number] ANSI-Medicare Part B [id number] ANSI-Medicare Part B [id number] ANSI-Medicare Part B [id number] ANSI-Medicare Part B [id number] ANSI-Medicare Part B [id number] ANSI-Medicare Part B [id number] ANSI-Medicare Part B [id number] ANSI-Medicare Part B [id number] ANSI-Medicare Part B [id number] ANSI-Medicare Part B [id number] ANSI-Medicare Part B [id number] Medicare Medigap Part B [id number] Self [id number] [facility] [id number] SP [id number] MEDICARE COMPLETE [id number] SP [id number] Medicare Medigap Part B [id number] Self [id number] Medicare Medigap Part B [id number] Self [id number] [facility]/Medicare Solu Commercial [id number] Self Medicare Medigap Part B [id number] Self [facility] [id number] SP [id number] Medicare Complete UHC F [id number] SELF [id number] Medicare Complete UHC F pending SELF pending UNHC COMMUNITY PLAN [facility] [id number] SP [id number] UNHC COMMUNITY PLAN [facility] [id number] SP [id number] BCBS [place] PPO 302/307 [id number] SP [id number] BLUE [place]OSS O [id number] S [id number] O [place] O [id number] S [id number] BLUE CROSS O [id number] S [id number] EXCELLUS BCBS P [id number] S [id number] [facility] GE PARTB [id number] SP [id number] MEDICARE BLUE PPO 306 [id number] SP [id number] MEDICARE BLUE PPO 306 [id number] SP [id number] EXCELLUS BCBS B [id number] S [id number] SELF PAY ONLY SP ANSI-Commercial [id number] ANSI-Medicare Part B [id number] ANSI-Medicare Part B [id number] ANSI-Medicare Part B [id number] ANSI-Medicare Part B [id number] ANSI-Commercial [id number] MEDICARE BLUE PPO 306 [id number] SP [id number] ANSI-Medicare Part B [id number] ANSI-Medicare Part B [id number] Problems, Conditions, and Diagnoses Code Display Name Description Problem Type Effective Dates Data Source(s) J30.2 [id number] Seasonal allergies Problem 04/05/2021 12:00: 00 AM EDT eCW1 ([facility]) M16.10 [id number] Hip arthritis Problem 01/11/2021 12:00:00 AM EDT eCW1 ([facility]) N52.9 Erectile dysfunction Erectile dysfunction Problem 01/04/2021 12:00:00 AM EDT MEDENT ([facility]) Surgeries/Procedures Procedure Description Date Indications Data Source(s) OFFICE OUTPATIENT VISIT 25 MINUTES 04/03/2021 12:00:00 AM EDT MEDENT ([facility], ) OFFICE OUTPATIENT VISIT 25 MINUTES 03/20/2021 12:00:00 AM EDT MEDENT ([facility]) Inject/Drain Arthrocentesis Major Joint/Bursa/Ganglion Cyst 03/16/2021 12:00:00 AM EDT MEDENT ([facility] OFFICE OUTPATIENT NEW 45 MINUTES 03/16/2021 12:00:00 A M EDT MEDENT ([facility]) OFFICE OUTPATIENT VISIT 25 MINUTES 01/04/2021 12:00:00 AM EDT MEDENT ([facility]) Results ID Date Data Source [id number] 01/04/2021 10:31:00 AM EDT [facility] ([facility]) Name Value Range Interpretation Code Description Data Julita rce(s) Supporting Document(s) Glucose [Presence] in Urine 100 mg/dL MEDENT ([facility]) Protein [Presence] in Urine by Test strip Laboratory test result MEDENT ([facility]) Ua Leuko Laboratory test result ME DENT ([facility]) Ua Nitrite Laboratory test result ME DENT ([facility]) Blood [Presence] in Urine by Visual Laboratory test result MEDENT ([facility]) Color of Urine Laboratory test result [facility] ([facility]) Ketones [Presence] in Urine by Test strip Laboratory test result MEDENT ([facility]) Ua Specific Chemult 1.020 1.003-1.030 MEDE NT ([facility]) Clarity of Urine Laboratory test result [facility] ([facility]) Bilirubin.total [Presence] in Urine by Test strip Laboratory test res ult MEDENT ([facility]) pH of Urine by Test strip 5.0 5.0-7.5 [facility] ([facility]) Urobilinogen [Mass/volume] in Urine by Test strip 0.2 E.U./dL 0.0-1.0 MEDENT ([facility]) ID Date Data Source [id number] 01/02/2021 11:35:00 AM EDT [facility] ([facility] Name Value Range Interpretation Code Description Data Julita rce(s) Supporting Document(s) Prostate specific Ag [Mass/volume] in Serum or Plasma 0.76 ng/mL [facility] ([facility]) The PSA assay is performed on the Fazlandta analyzer by [employer] sandwich chemiluminescent immunoassay and should not be compared interchangeably with other methods. It should not be used alone as a screening test or diagnosis for the presence or absence of malignant disease. Predictions of disease recurrence should not be based solely on values obtained from serial patient serum values. ID Date Data Source [id number] 09/27/2020 07:37:04 AM EDT [facility] PCName: Emani AlejandroDOB: 1950Provider: Glen Palmer: 09/20/2020 Reason For VisitEmani Alejandro is here today for Right Hip. Emani Alejandro is an established patient here for follow up. Patient is retired. History of Present IllnessThiranjeet is a 70-year-old male who presents with right hip pain.He is having persistent complaints of pain and discomfort in his hip area. Weightbearing is problematic. He has not recently been involved with any physical therapy. He ambulates with the use of a cane. Any pivoting and rotational activities are problematic and he is seen today for further evaluation. He has also noted that his hip is painful and he has quality of life issues in reference to this. His history is significant for having BPH, he has also had bladder cancer, hypertension and history of mild edema to his lower extremities. There is no evidence of any lymphedema which is present. He only sees his primary care. He also is a former smoker. He is seen today for evaluation of persistent complaints of pain and discomfort with weightbearing in reference to his right hip. Results/DataX-rays are visualized from [facility] on 05/01/2020, which reveal severe degenerative arthritis of the right hip. No evidence of degenerative arthritis of the left hip. No significant exostoses. Loss of joint space is noted to be present. AssessmentRight hip severe degenerative arthritis, primary osteoarthritis. Plan Physical Therapy ([facility]) - General Treatment Treatment Status: Complete Done:20Sep2020 Ordered;For: Pain in right hip; Ordered By: Neeraj Palmer Performed: Due: 04Oct2020; Last Updated By: Charmaine Ellison; 09/20/2020 1:40:22 PMPT Protocol : Evaluate and treat as indicated, per protocol or as previously written.Duration: : Four WeeksPT Frequency : Two or three times a weekLaterality and Body Part: : Right Hip DJD In reference to the right hip , at this stage utilizing a cane. He is a diabetic, most recent hemoglobin A1C is 7.7, in the past he was 9.6. I would not recommend a Depo-Medrol injection. I would not recommend antiinflammatories in view of his diabetes over renal dysfunction which could occur. I have recommended continued use of the cane. I do feel physical therapy plays a role. Weight reduction plays a role. He understands that he is at increased risk for infection with his diabetes as well as his weight. Ideally, his BMI should be b elow 35, but the bare minimum is 40. If it is above 40, no surgical intervention due to the 7-8 times increased incidence of infection. I have also discussed the benefits and risks of total hip replacement. The risks and benefits of total hip replacement were discussed at length today. The benefits, particularly of pain relief were discussed but that there was no guarantee as every operation is different. The significant risks of this procedure were also addressed, including risks such as infection, neurovascular injury, fracture and dislocation, blood loss and the need for blood transfusion, if necessary, dislocation of the ball and socket joint, nerve injury resulting in weakness, deep vein thrombosis (blood clots), lung embolism, fracture of the pelvis or thigh bone, leg length discrepancy resulting in the need for a shoe raise, limited longevity of the prosthesis, infection of the prosthesis, need for future revision surgery and inability to reach normalcy. The patient and I discussed that although I will be performing all of the surgical procedure myself, the anesthesia members of the surgical team may perform their part of the procedure before I come into the operating room, and following the completion of the surgical portion, the final skin and skin related tissue closure and application of the dressing may be performed by my surgical scrub technologist, who is well trained and experienced. During these two portions of the procedure, I may in fact be in a different operating room and involved with a different procedure. I will, however, be personally available to the team throughout, if needed.At this time, he is given my film inspector's number. He would be done at [facility]. He is not a candidate for outpatient surgery. Also, [facility] stem. He will consider these options. My recommendation for him is continued weight reduction programs at this stage. There is no urgency in reference to his hip. He understands there is no further diagnostic testing from my standpoint. Signatures Electronically signed by : Imani Roche, ; Sep 20 2020 2:18PM EST Electronically signed by : Neeraj Palmer M.D.; Sep 27 2020 7:37AM EST Name Value Range Interpretation Code Description Data Julita rce(s) Supporting Document(s) ID Date Data Source [id number] 07/07/2020 12:14:00 PM EST [facility] Name Value Range Interpretation Code Description Data Julita rce(s) Supporting Document(s) SARS coronavirus 2 RNA Not Detected [facility] This lab was ordered by [facility] and reported by [facility]. ID Date Data Source Coronavirus 2019 NOSE (Send Out) COVID 07/07/2020 12:00:00 A M EST eCW1 ([facility]) Name Value Range Interpretation Code Description Data Julita rce(s) Supporting Document(s) This nucleic acid amplification test was developed and its CORONAVIRUS 2019 NOSE eCW1 ([facility]) ID Date Data Source [id number] 06/27/2020 07:32:59 AM EST [facility] PCName: Emani AlejandroDOB: 1950Provider: Magali Raymundo: 06/05/2020 Reason For VisitEmani Alejandro is here today for Right Hip. Emani Alejandro is an established patient here for follow up. Patient is retired. History of Present IllnessThe patient is still struggling with pain, stiffness and weakness. He is continuing to have pain in his right hip. He is ambulating with a cane today. He is using the cane in the wrong hand for his right hip. He does have pain that keeps him awake at night he has difficulty with ambulation. AssessmentRight hip primary osteoarthritisPlanHis last hemoglobin A1c was 9 range. He did not understand that he was to have his blood work repeated prior to returning to us. I will send him for hemoglobin A1c at this time if it is within normal range we can send him for cortisone injection I would not recommend a surgical intervention at this time. Unable to proceed with the shot I recommended a walker he is resistant to this. We have also would need an accurate weight on the patient at his next visit. Plan Hemoglobin A1C (HEMOGLOBIN A1C, EST AVERAGE GLUCOSE); Status:Active;Requested for:[id number]; Perform:Outside Facility; Due:[id number]; Last Updated By:Lupe Mcfarlane; 06/05/2020 11:02:42 AM;Ordered; For:Diabetes mellitus, Pain in right hip; Ordered By:Tracee Raymundo; Signatures Electronically signed by : Tracee Raymundo NP; Jun 05 2020 11:08AM EST (Author) Electronically signed by : Neeraj Palmer M.D.; Jun 06 2020 12:58PM EST Electronically signed by : Tracee Raymundo NP; Jun 15 2020 3:52PM EST (Author) Electronically signed by : Neeraj Palmer M.D.; Jun 27 2020 7:32AM EST Name Value Range Interpretation Code Description Data Julita rce(s) Supporting Document(s) ID Date Data Source [id number] 05/02/2020 02:04:27 PM EST [facility] PCName: Emani AlejandroDOB: 1950Provider: Glen Palmer: 05/01/2020 Reason For VisitSOS Patient Intake: Emani Alejandro is here today for Right Hip. Emani Alejandro is a new patient. The patient was notified that the office visit was recorded to enhance documentation accuracy. SOS Occupation and Work Status: Patient is retired. History of Present IllnessThis is a 70-year-old male who was last seen by me for his right hip on 08/28/15. At that time, he was felt to have bursitis, as well as lumbar spine discomfort. He now presents with right-sided groin discomfort. Recent x- rays were not performed. He has noted pain and discomfort in his hip area which dates back to when he was with Dr. Sexton. Also, over time, he has noted decreased range of motion of his right hip. Weightbearing over distance is becoming increasingly problematic but more over the last four to five weeks. He has also found that is symptomatology has not improved. He is a diabetic. Recen jens, alteration of his medications for his diabetes was done. He does not know his hemoglobin A1C, but he states that they are high. He has no history of any heart disease. He is a hypertensive on medications. He is presently ambulating with the use of a cane. Weightbearing activities are problematic. He is utilizing Advil and Aleve and he was instructed to contact his PCP in reference to this. I would recommend discontinuing these. Tylenol is the safest medication, keeping his total dose below 3,000 mg daily. He is seen today in reference to this. Results/DataX-rays ordered, visualized, and interpreted today, AP pelvis and AP and lateral radiographs of the right hip - three views, reveal severe degenerative arthritis of the right hip with loss of joint space superiorly. The left hip is without evidence of degenerative arthritis. AssessmentRight hip severe degenerative arthritis; primary osteoarthritis. Plan<OBX.5.1><OBX.5.1.1> X-Ray I Hip-Uni </OBX.5.1.1><OBX.5.1.2> Pelvis - 2 or 3 views (XRays were ordered, obtained and interpreted</OBX.5.1.2></OBX.5.1>today in the office. Indication: pain/dysfunction.); Status:Complete; Done: 01May2020 Perform:SOS28; Due:15May2020; Last Updated By:Eladia Zambrano; 05/01/2020 9:25:05 AM;Ordered; For:Pain in right hip; Ordered By:Neeraj Palmer;Weight Bearing Status : Weight bearing At this stage, I would like to acquire his hemoglobin A1C. I would also like to have him contact his primary care. He was instructed to discontinue his Advil/Aleve. I feel more than likely him having an injection with his recent alteration of his diabetic medications would probably not be optimal at this time, but I would like to know exactly his number. I would recommend utilizing a walker rather than a cane. There is no evidence of infectious component which I can appreciate. He will followup for his right hip in the next four to six weeks. AddendumAmended 05/01/2020 03:09 PM by Neeraj Palmer Hemoglobin A1c on 03/19 was 9.6 Signatures Electronically signed by : Dorothea Lopez, ; May 01 2020 1:05PM EST Electronically signed by : Neeraj Palmer M.D.; May 02 2020 2:04PM EST Name Value Range Interpretation Code Description Data Julita rce(s) Supporting Document(s) ID Date Data Source TATA 04/24/2020 12:47:30 PM EDT eCW1 ([facility]) Name Value Range Interpretation Code Description Data Julita rce(s) Supporting Document(s) Negative ANTINUCLEAR ANTIBODIES DI RECT eCW1 ([facility]) ID Date Data Source LYME DISEASE SCRN WITH CONFIRM 04/24/2020 12:47:19 PM EDT eC W1 ([facility]) Name Value Range Interpretation Code Description Data Julita rce(s) Supporting Document(s) <0.80 Lyme Disease IgM Ab Quant itati eCW1 ([facility]) <0.91 Lyme Disease IgG/IgM Anti maria elena eCW1 ([facility]) ID Date Data Source RHEUMATOID FACTOR QUANT 04/21/2020 06:51:13 AM EDT eCW1 ([facility]) Name Value Range Interpretation Code Description Data Julita rce(s) Supporting Document(s) < 10.0 RHEUMATOID FACTOR QUANT eCW1 ( [facility]) ID Date Data Source C REACTIVE PROTEIN QUANTITATIV (At [facility]) 04/21/2020 06:43 :13 AM EDT eCW1 ([facility]) Name Value Range Interpretation Code Description Data Julita rce(s) Supporting Document(s) 0.52 C REACTIVE PROTEIN QUANTITATIV eCW1 ([facility]) ID Date Data Source ERYTHROCYTE SEDIMENTATION RATE 04/21/2020 06:43:06 AM EDT eC W1 ([facility]) Name Value Range Interpretation Code Description Data Julita rce(s) Supporting Document(s) 8 ERYTHROCYTE SEDIMENTATION RATE eCW1 ([facility]) ID Date Data Source CBC with Differential 04/21/2020 06:43:00 AM EDT eCW1 ([facility]) Name Value Range Interpretation Code Description Data Julita rce(s) Supporting Document(s) 7.6 WHITE BLOOD COUNT eCW1 ([facility]) 14.5 HEMOGLOBIN eCW1 ([facility]) 96.5 MEAN CORPUSCULAR VOLUME eCW1 ( [facility]) 44.5 HEMATOCRIT eCW1 ([facility]) 4.61 RED BLOOD COUNT eCW1 ([facility]) 11.9 RED CELL DISTRIBUTION WIDTH eC W1 ([facility]) 32.6 MEAN CORPUSCULAR HGB CONC eCW1 ([facility]) 31.5 MEAN CORPUSCULAR HEMOGLOBIN eC W1 ([facility]) 15.0 LYMPH % eCW1 ([facility]) 70.7 NEUTROPHILS % eCW1 ([facility]) 337 PLATELET COUNT, AUTOMATED eCW1 ([facility]) 10.6 MONO % eCW1 ([facility]) 5.4 NEUTROPHILS # eCW1 ([facility]) 2.5 EOS % eCW1 ([facility]) 0.5 BASO % eCW1 ([facility]) 1.1 LYMPH # eCW1 ([facility]) 0.0 BASO # eCW1 ([facility]) 0.2 EOS # eCW1 ([facility]) 0.8 MONO # eCW1 ([facility]) Procedure Social History Code Duration Value Status Description Data Source(s ) Smoking 04/03/2021 12:00:00 AM EDT Non Smoker completed Non Smoke r MEDENT ([facility], ) Smoking 01/04/2021 12:00:00 AM EDT Quit - Age 61 completed Quit - Age 61 MEDENT ([facility]) Vital Signs ID Date Data Source UNK Name Value Range Interpretation Code Description Data Source(s) Heart rate 84 /min 84 /min eCW1 ([facility]) Body weight 238.4 [lb_av] 238.4 [lb_av] eCW1 ([facility]) Body height [in_i] eCW1 ([facility]) Body mass index (BMI) [Ratio] 35.20 kg/m2 35.20 kg/m2 eCW1 ([facility]) Respiratory rate 18 /min 18 /min eCW1 ([facility]) Body temperature 96.1 [degF] 96.1 [degF] eCW1 ( [facility]) Systolic blood pressure 104 mm[Hg] 104 mm[Hg] e CW1 ([facility]) Diastolic blood pressure 67 mm[Hg] 67 mm[Hg] eCW1 ([facility]) Heart rate 87 /min 87 /min eCW1 ([facility]) Body weight 244 [lb_av] 244 [lb_av] eCW1 ([facility]) Body height [in_i] eCW1 ([facility]) Body mass index (BMI) [Ratio] 36.03 kg/m2 36.03 kg/m2 eCW1 ([facility]) Respiratory rate 18 /min 18 /min eCW1 ([facility]) Body temperature 96.8 [degF] 96.8 [degF] eCW1 ( [facility]) Systolic blood pressure 145 mm[Hg] 145 mm[Hg] e CW1 ([facility]) Diastolic blood pressure 77 mm[Hg] 77 mm[Hg] eCW1 ([facility]) Body temperature 97.5 [degF] 97.5 [degF] MEDENT ([facility] ) Heart rate 92 /min 92 /min eCW1 ([facility]) Respiratory rate 18 /min 18 /min eCW1 ([facility]) Body temperature 97.2 [degF] 97.2 [degF] eCW1 ( [facility]) Systolic blood pressure 127 mm[Hg] 127 mm[Hg] e CW1 ([facility]) Diastolic blood pressure 82 mm[Hg] 82 mm[Hg] eCW1 ([facility]) Body weight 245.6 [lb_av] 245.6 [lb_av] eCW1 ([facility]) Body weight 111.4 kg 111.4 kg eCW1 ([facility]) Body height [in_i] eCW1 ([facility]) Body mass index (BMI) [Ratio] 36.26 kg/m2 36.26 kg/m2 eCW1 ([facility]) Body weight 242.8 [lb_av] 242.8 [lb_av] eCW1 ([facility]) Body weight 110.13 kg 110.13 kg eCW1 ([facility]) Body height [in_i] eCW1 ([facility]) Body mass index (BMI) [Ratio] 35.85 kg/m2 35.85 kg/m2 eCW1 ([facility]) Heart rate 77 /min 77 /min eCW1 ([facility]) Respiratory rate 18 /min 18 /min eCW1 ([facility]) Body temperature 96.1 [degF] 96.1 [degF] eCW1 ( [facility]) Systolic blood pressure 171 mm[Hg] 171 mm[Hg] e CW1 ([facility]) Diastolic blood pressure 96 mm[Hg] 96 mm[Hg] eCW1 ([facility]) Body weight 241 [lb_av] 241 [lb_av] eCW1 ([facility]) Body mass index (BMI) [Ratio] 35.59 kg/m2 35.59 kg/m2 eCW1 ([facility]) Heart rate 97 /min 97 /min eCW1 ([facility]) Respiratory rate 20 /min 20 /min eCW1 ([facility]) Body temperature 97.2 [degF] 97.2 [degF] eCW1 ( [facility]) Body height [in_i] eCW1 ([facility]) Systolic blood pressure 125 mm[Hg] 125 mm[Hg] e CW1 ([facility]) Diastolic blood pressure 80 mm[Hg] 80 mm[Hg] eCW1 ([facility]) Body height 69 [in_i] 69 [in_i] [facility] ([facility] 5'9" Body mass index (BMI) [Ratio] 36.9 kg/m2 36.9 k g/m2 [facility] ([facility]) Systolic blood pressure 164 mm[Hg] 164 mm[Hg] M EDENT ([facility]) Body weight 250.00 [lb_av] 250.00 [lb_av] MEDEN T ([facility]) Body weight 113.400 kg 113.400 kg [facility] ([facility] Diastolic blood pressure 88 mm[Hg] 88 mm[Hg] MEDENT ([facility]) Body weight 254 [lb_av] 254 [lb_av] eCW1 ([facility]) Body height [in_i] eCW1 ([facility]) Body mass index (BMI) [Ratio] 37.51 kg/m2 37.51 kg/m2 eCW1 ([facility]) Heart rate 98 /min 98 /min eCW1 ([facility]) Respiratory rate 20 /min 20 /min eCW1 ([facility]) Body temperature 95.8 [degF] 95.8 [degF] eCW1 ( [facility]) Systolic blood pressure 160 mm[Hg] 160 mm[Hg] e CW1 ([facility]) Diastolic blood pressure 86 mm[Hg] 86 mm[Hg] eCW1 ([facility]) Body weight 254.6 [lb_av] 254.6 [lb_av] eCW1 ([facility]) Body height [in_i] eCW1 ([facility]) Body mass index (BMI) [Ratio] 37.59 kg/m2 37.59 kg/m2 eCW1 ([facility]) Heart rate 97 /min 97 /min eCW1 ([facility]) Respiratory rate 18 /min 18 /min eCW1 ([facility]) Body temperature 97 [degF] 97 [degF] eCW1 ([facility]) Systolic blood pressure 150 mm[Hg] 150 mm[Hg] e CW1 ([facility]) Diastolic blood pressure 82 mm[Hg] 82 mm[Hg] eCW1 ([facility]) Body weight 257.2 [lb_av] 257.2 [lb_av] eCW1 ([facility]) Body height [in_i] eCW1 ([facility]) Body mass index (BMI) [Ratio] 37.98 kg/m2 37.98 kg/m2 eCW1 ([facility]) Diastolic blood pressure 86 mm[Hg] 86 mm[Hg] eCW1 ([facility]) Heart rate 97 /min 97 /min eCW1 ([facility]) Respiratory rate 18 /min 18 /min eCW1 ([facility]) Body temperature 96.4 [degF] 96.4 [degF] eCW1 ( [facility]) Systolic blood pressure 136 mm[Hg] 136 mm[Hg] e CW1 ([facility]) Patient Treatment Plan of Care Planned Activity Planned Date Details Description Data Source (s) Acetaminophen 325 MG / Oxycodone Hydrochloride 5 MG Or al Tablet 05/14/2021 12:00:00 AM EST eCW1 ([facility]) Acetaminophen 325 MG / Oxycodone Hydrochloride 5 MG Or al Tablet 05/14/2021 12:00:00 AM EST eCW1 ([facility]) Acetaminophen 325 MG / Oxycodone Hydrochloride 5 MG Or al Tablet 05/14/2021 12:00:00 AM EST eCW1 ([facility]) Acetaminophen 325 MG / Oxycodone Hydrochloride 5 MG Or al Tablet 04/11/2021 12:00:00 AM EDT eCW1 ([facility]) Fluticasone Propionate 50 MCG/ACT 04/05/2021 12:00:00 AM EDT eCW1 ([facility]) Fluticasone Propionate 50 MCG/ACT 04/05/2021 12:00:00 AM EDT eCW1 ([facility]) Fluticasone Propionate 50 MCG/ACT 04/05/2021 12:00:00 AM EDT eCW1 ([facility]) Acetaminophen 325 MG / Oxycodone Hydrochloride 5 MG Or al Tablet 03/12/2021 12:00:00 AM EDT eCW1 ([facility]) Acetaminophen 325 MG / Oxycodone Hydrochloride 5 MG Or al Tablet 03/12/2021 12:00:00 AM EDT eCW1 ([facility]) Acetaminophen 325 MG / Oxycodone Hydrochloride 5 MG Or al Tablet 02/14/2021 12:00:00 AM EDT eCW1 ([facility]) Acetaminophen 325 MG / Oxycodone Hydrochloride 5 MG Or al Tablet 02/14/2021 12:00:00 AM EDT eCW1 ([facility])
[2021-05-16] MEDS ORDERED: TRANEXAMIC ACID 100 MG/ML 10ML VIAL As Ordered ONE ×3 (07:40→07:55)
[2021-05-16] MEDS ORDERED: BUPIVACAINE/EPIN 0.25% 30 ML VIAL As Ordered ONE (07:58)
[2021-05-16] MEDS ORDERED: dexameTHASONE 4 MG/ML 1ML VIAL (J1100 PER 1MG) As Ordered ONE (08:34)
[2021-05-16] MEDS ORDERED: PHENYLephrine 500MCG 5ML (100MCG/ML) SYRINGE As Ordered ONE (08:34)
[2021-05-16] MEDS ORDERED: MIDAZOLAM INJ 2MG/2ML VIAL (J2250 PER 1MG) As Ordered ONE (08:34)
[2021-05-16] MEDS ORDERED: LIDOCAINE 2% 100MG/5ML SDV (FOR ANES.) As Ordered ONE (08:34)
[2021-05-16] MEDS ORDERED: propofoL 200 MG/20 ML VIAL As Ordered ONE (08:34)
[2021-05-16] MEDS ORDERED: fentaNYL 100 MCG/2 ML INJECTION (J3010) As Ordered ONE (08:34)
[2021-05-16] MEDS ORDERED: ROCURONIUM BROMIDE 50 MG/5 ML VIAL As Ordered ONE ×4 (08:34→11:38)
[2021-05-16] MEDS ORDERED: HYDROmorphone HCL 2 MG/ML 1ML VIAL As Ordered ONE (08:36)
[2021-05-16] MEDS ORDERED: ACETAMINOPHEN 1000MG 100ML IV BTL (OFIRMEV) (J0131 PER 10MG) As Ordered ONE (08:48)
[2021-05-16] MEDS ORDERED: SUGAMMADEX SODIUM 500 MG/5 ML VIAL (BRIDION) As Ordered ONE (08:57)
[2021-05-16] MEDS ORDERED: LABETALOL 100MG/20ML VIAL As Ordered ONE (09:01)
[2021-05-16] MEDS ORDERED: [UNRECOGNIZED DRUG - SUPPLY] XX ONE (09:05)
[2021-05-16] MEDS ORDERED: VANCOMYCIN 500MG/10ML VIAL As Ordered ONE (12:05)
--- NOTE | 2021-05-16 12:43 | REP ---
INDICATION: UNILATERAL PRIMARY OSTEOARTHRITIS, RIGHT HIP. COMPARISON: None. TECHNIQUE: Intraoperative fluoroscopic imaging using portable C-arm technique. FINDINGS: Right hip replacement with orthopedic hardware in satisfactory position. Total fluoroscopic time 7.0 seconds. IMPRESSION: Status post right hip replacement. <Electronically signed by Efrain Harmon > 05/16/21 [id number]
--- NOTE | 2021-05-16 13:39 | REP ---
INDICATION: LOWSET/ POST OP COMPARISON: None. TECHNIQUE: Two portable views of the pelvis. FINDINGS: Patient is status post right hip replacement. Normal appearance and positioning to the orthopedic hardware. Overlying postsurgical changes noted. Remainder of the visualized osseous structures appear intact. IMPRESSION: Status post right hip replacement. <Electronically signed by Efrain Harmon > 05/16/21 1823
[2021-05-16] MEDS ORDERED: LR 1,000 ML IV SCH ×2 (13:40→13:55)
[2021-05-16] MEDS ORDERED: ONDANSETRON 4MG/2ML VIAL IV PRN ×2 (13:40→14:15)
[2021-05-16] MEDS ORDERED: GLUCOSE 4GM CHEW TABLET PO PRN (13:40)
[2021-05-16] MEDS ORDERED: DEXTROSE 50% 50 ML SYRINGE IV PRN (13:40)
[2021-05-16] MEDS ORDERED: oxyCODONE 5MG TAB PO PRN (13:40)
[2021-05-16] MEDS ORDERED: GLUCAGON INJ 1MG VIAL SC PRN (13:40)
[2021-05-16] MEDS ORDERED: fentaNYL 100 MCG/2 ML INJECTION (J3010) IV PRN (13:40)
[2021-05-16] MEDS: HYDROMORPHONE HCL 0.5 MG/ 0.5 ML SYRINGE (J1170 PER 1) IV PRN ×2 (13:50→14:05)
--- NOTE | 2021-05-16 14:05 | ROOPDOC ---
[facility] Report Of Operation Report of Operation DATE OF PROCEDURE: 05/16/21 PREPROCEDURE DIAGNOSES: [Right primary hip osteoarthritis]. POSTPROCEDURE DIAGNOSES: [Right primary hip osteoarthritis]. PROCEDURE PERFORMED: [Right Mauro total hip arthroplasty]. SURGEON: [Francia Raymond], VOCATIONAL NURSE: [technical architect], ANESTHESIA: [General anesthesia]. ESTIMATED BLOOD LOSS: Approximately [400 cc] mL. COMPLICATIONS: [No complications]. REMARKS: . FINDINGS: [Severe right hip osteoarthritis] SPECIMENS REMOVED: [None] DESCRIPTION OF PROCEDURE: [Patient was met in the holding area. H&P reviewed consent was confirmed. He was given his preoperative pain medication and antibiotics. Patient opted proceed with the above procedure. Plan Mauro total hip with the cup in 40 20 position with a size 7 stem. Patient was taken to the operative room. Given a general anesthetic in usual manner. Transferred onto the surgical table with the break at the level of the hip joint. He was then prepped and draped both legs free draped. We made sure to have access to both iliac crests. Mauro registration was performed by the nurses. Surgical timeout was performed. Made a 2 inch incision along the left iliac crest. We then palpated the iliac crest and placed 2 threaded pins into the crest to hold the Mauro tracker we then we then placed a third pin and placed the tracker site with touch iliac crest bone. Once we thought we had good positioning of the tracker we proceeded on the right hip. Medial anterolateral incision over the proximal femur. First infiltrated the subcutaneous tissues with Marcaine epinephrine. Divided the tissues down through subcutaneous use use down to the fascia over the tensor fascia tito. Took care to protect the lateral cutaneous nerve. Dissected sharply through the fascia. Elevated over the anterior surface of the muscle. And then entered bluntly between the tensor fascia tito and the sartorius. We identified the crossing anterior vessels and ligated cauterized them with bipolar cautery and then sharply divided the vessels. We then identified any anterior and superior neck. Remove the pericapsular fat pad. Placed to blunt Homans superior and inferior to the neck. We then performed anterior ca psulotomy. Performing our superior and inferior releases of the capsule. Once we identified the neck we took care to release the reflected head of the rectus. Identified the anterior acetabular rim. We then placed to check aviles one in the superior acetabulum and one in the proximal femur. We registered the tracks aviles with Mauro. We then measured our presummative femoral neck cut. With 2 blunt Hohmann's superior and inferior femoral neck we performed an in situ cut. Remove the napkin ring femoral neck. Then using a corkscrew remove the femoral head. You placed 1 blunt retractor in the obturator rajan and retracted the tissues medially. We then placed one retractor behind the posterior acetabulum. Sharply dissected the labrum off the acetabulum. We then cleared the cotyloid fossa of the acetabulum. Once we had adequate exposure of the acetabulum we proceeded with registration Mauro of the acetabulum. Once we thought we had good registration. We proceeded to ream the acetabulum to 58 which we had planned preoperatively. Using the Mauro system we reamed the acetabulum 40 degrees of abduction and 20 degrees of anteversion. After removing the reamer we thought we had good spherical reamer with good bleeding bone. We then proceeded to impact the acetabular cup into position. We were unable to mamie to perform equal positioning of the acetabular cup. We brought in fluoroscopy. We impacted a cup under fluoroscopic guidance. We thought we had good positioning similar to the reamer and a 40 degrees abduction and 20 degrees of anteversion. On palpation around the cup it seen to be symmetric with the psoas notch in the posterior acetabulum. We then proceeded to impact the liner into the 58 cup. The liner was in diameter of 40. Once liner was impacted retested with a [place] elevator and could not remove the liner and the liner was down symmetrically. Once we thought we had a good positioning of the cup with secure liner. Proceeded to the femur Placement retractor medially and femur and one partially over the greater trochanter. We got enough elevation with a little bit of superior capsular release. We then entered the femoral canal with the smallest entry rasp. We then used incremental rasps to lateralize. We also use a calcar reamer to reshape the femoral neck. And we incrementally enlarged femoral canal to receive a size 7 stem. We did a reduction of the size 7 with a minus head. We thought we had good position of the stem but were a bit short. Proceeded with a size 7 stem with a 0 offset 40 mm ceramic head. Reposition the leg remove the trial implants. Impacted the size 7 stem. Wash and clean the trunnion. Then use the Lumenpulse system to impact the sleeve and ceramic 40 mm 0 offset head. We then reduce the final implants. We took fluoroscopic x-rays. We thought we had good positioning and fill of the femur and acetabulum. Clinically his legs were equal on the table. Irrigated wound copious amounts of saline. Use 1 g of TXA. And allow that to settle for 5 minutes in the wound. We then suction dried the wound. Infiltrated with 0.2% Marcaine 180 ml mix with epinephrine and ketorolac. Then added 1 g of vancomycin intra-articular for infection prophylaxis. Close the fascia over the tensor fascia tito with #1 Vicryl running. Closed skin layer with 2-0 Vicryl , Monocryl for skin and Dermabond and Steri-Strips. The tracker over the left iliac wing, threaded pins were removed. Wound was irrigated with copious amounts of saline. Closed using 2-0 Vicryl interrupted and Monocryl and Steri-Strips for skin. Sterile dressings applied to both incisions. Patient was then awakened from anesthesia and taken to recovery in a stable manner. X-rays in the PACU were reviewed. Plan: Patient will be weightbearing as tolerated. Overlies with PT. Xarelto 10 mg p.o. OD for 30 days as DVT prophylaxis We will follow up with orthopedics in 2 weeks. Overnight stay. Discharge home tomorrow. FRANCIA HOUGH MD May 16, 2021 14:05
[2021-05-16] MEDS ORDERED: SENNA 8.6 MG TAB (SENOKOT) PO PRN (14:10)
[2021-05-16] MEDS ORDERED: GNP650TA8 PO (14:28)
[2021-05-16] MEDS ORDERED: HOME MED LIST COMPLETE! XX SCH (14:30)
[2021-05-16] MEDS: ceFAZolin SOD 2 GM in IV 1 EA IV SCH ×2 (16:38→23:59)
[2021-05-16] MEDS ORDERED: LACTULOSE 20 GM/30 ML SYRUP UD PO PRN (17:20)
[2021-05-16] MEDS ORDERED: HYDROmorphone 4MG TABLET PO PRN (17:20)
[2021-05-16] MEDS ORDERED: XARE10TA PO (17:24)
[2021-05-16] MEDS ORDERED: OXYC1TAB23 PO (17:24)
[2021-05-16] MEDS ORDERED: CELE100C PO (17:24)
[2021-05-16 17:32] LABS: HEMATOCRIT 36.2 % (42.0-52.0); HEMOGLOBIN 11.8 g/dl (13.5-17.5); MEAN CORPUSCULAR HEMOGLOBIN 29.8 pg (27.0-33.0); MEAN CORPUSCULAR HGB CONC 32.6 g/dl (32.0-36.5); MEAN CORPUSCULAR VOLUME 91.4 fl (80.0-96.0); PLATELET COUNT, AUTOMATED 344 10^3/uL (150-450); RED BLOOD COUNT 3.96 10^6/uL (4.30-6.10); WHITE BLOOD COUNT 17.2 10^3/uL (4.0-10.0)
[2021-05-16] MEDS: HumaLOG INSULIN (NovoLOG) PER UNIT SC SCH (17:39)
[2021-05-16 17:48] LABS: PROTHROMBIN TIME 13.6 SECONDS (12.7-14.5)
[2021-05-16 18:02] LABS: ALBUMIN 3.5 GM/DL (3.2-5.2); ALT/SGPT 37 U/L (12-78); BILIRUBIN,TOTAL 0.2 MG/DL (0.2-1.0); BLOOD UREA NITROGEN 25 MG/DL (7-18); CALCIUM LEVEL 9.2 MG/DL (8.8-10.2); CARBON DIOXIDE LEVEL 21 MEQ/L (21-32); CHLORIDE LEVEL 105 MEQ/L (98-107); CREATININE FOR GFR 1.16 MG/DL (0.70-1.30); GLOMERULAR FILTRATION RATE > 60.0 (>42); GLUCOSE, FASTING 236 MG/DL (70-100); POTASSIUM SERUM 5.1 MEQ/L (3.5-5.1); SODIUM LEVEL 137 MEQ/L (136-145); TOTAL PROTEIN 6.6 GM/DL (6.4-8.2)
[2021-05-16] MEDS ORDERED: HumaLOG INSULIN (NovoLOG) PER UNIT SC SCH (21:00)
[2021-05-16] MEDS ORDERED: SIMVASTATIN 40 MG TAB PO SCH (21:00)
[2021-05-16] MEDS: CelecoXIB (CeleBREX) 100 MG CAP PO SCH (21:20)
[2021-05-16] MEDS: lisinopriL 5 MG TAB PO SCH (21:20)
[2021-05-16] MEDS: ACETAMINOPHEN 500 MG TAB PO SCH (21:21)
[2021-05-16] MEDS: FLUTICASONE PROP 0.05% NASAL SPRAY 16 GM (FLONASE) NARES SCH (21:22)
[2021-05-16] MEDS: HYDROmorphone 2 MG TAB PO PRN (21:22)
[2021-05-17] MEDS: HYDROmorphone 2 MG TAB PO PRN (03:24)
[2021-05-17 06:00] VITALS: BP 134/67
[2021-05-17] MEDS: ACETAMINOPHEN 500 MG TAB PO SCH (06:46)
[2021-05-17] MEDS ORDERED: glipiZIDE (GLUCOTROL) 5 MG TAB PO SCH (07:30)
[2021-05-17] MEDS: HumaLOG INSULIN (NovoLOG) PER UNIT SC SCH (07:30)
[2021-05-17] MEDS ORDERED: LORATADINE 10 MG TAB PO SCH (09:00)
[2021-05-17] MEDS ORDERED: PANTOPRAZOLE 40MG TAB (PROTONIX) PO SCH (09:00)
[2021-05-17] MEDS ORDERED: OMEPRAZOLE 20 MG CAP PO SCH (09:00)
[2021-05-17] MEDS: FLUTICASONE PROP 0.05% NASAL SPRAY 16 GM (FLONASE) NARES SCH (09:00)
[2021-05-17] MEDS ORDERED: ASPIRIN 81MG ENTERIC TABLET PO SCH (09:00)
[2021-05-17] MEDS ORDERED: TAMSULOSIN 0.4 MG CAP PO SCH (09:00)
[2021-05-17] MEDS: lisinopriL 5 MG TAB PO SCH (09:24)
[2021-05-17] MEDS: CelecoXIB (CeleBREX) 100 MG CAP PO SCH (09:24)
[2021-05-17] MEDS ORDERED: ASPI81TA26 PO (10:50)
[2021-05-17] MEDS ORDERED: RIVAROXABAN 10 MG TAB (XARELTO) PO SCH (18:00)
== END 2021-05-17 11:10 | disposition home or self-care (01) ==
LOC: M SDC 06:08 → M MS5PR 14:45 → M SDC 05-17 11:10
PROVIDERS: ATTEND Orthopaedic Surgery
DX: M16.11 Unilateral primary osteoarthritis, right hip (principal); E11.9 Type 2 diabetes mellitus without complications; I10 Essential (primary) hypertension; E78.5 Hyperlipidemia, unspecified; Z87.891 Personal history of nicotine dependence; K21.9 Gastro-esophageal reflux disease without esophagitis; N40.0 Benign prostatic hyperplasia without lower urinary tract symptoms; Z79.84 Long term (current) use of oral hypoglycemic drugs; Z79.899 Other long term (current) drug therapy; Z88.5 Allergy status to narcotic agent
CPT/HCPCS: 27130; 36415; 72170; 76000; 80053; 85027; 85610; 88304; 96365; 96366; 97110; 97116; 97161; 97165; 97530; 97535; C1713; C1776; J0131; J0690; J1100; J1170; J2250; J2370; J3010; J3370

== ENCOUNTER → 2021-05-23 | Outpatient (CLI) | payer MEDICARE ==
[~2021-05-23] MED LIST changes: -**UNRESOLVED NON-FORMULARY MED ORDER XX SCH; +ASPI81TA26 PO; +CELE100C PO; -CelecoXIB (CeleBREX) 100 MG CAP PO SCH; -GABAPENTIN 100 MG CAP PO SCH; +GNP650TA8 PO; -LR 1,000 ML IV ONE; +XARE10TA PO; -ceFAZolin SOD 2 GM in IV 1 EA IV SCH
--- NOTE | 2021-05-23 11:53 | REP ---
INDICATION: ORTHOPEDIC AFTERCARE. COMPARISON: 05/16/2021 AP pelvis TECHNIQUE: AP and frog-lateral views FINDINGS: The femoral and acetabular components of the right hip prosthesis appear unchanged. There is no acute fracture, dislocation, or subluxation. The alignment is again seen to be near anatomical. IMPRESSION: As above <Electronically signed by Channing Oliveira > 05/23/21 [id number]
--- NOTE | 2021-05-23 18:37 | REP ---
INDICATION: ORTHOPEDIC AFTERCARE. COMPARISON: None. TECHNIQUE: Single limited frontal view of the pelvis FINDINGS: Mild degenerative changes to the left hip include increased sclerosis to the acetabular roof with marginal spurring and minimal joint space narrowing. Stable appearance of the right hip replacement. IMPRESSION: Stable normal appearance of the right hip. <Electronically signed by Efrain Harmon > 05/23/21 [id number]
== END ==
LOC: M SOG 11:21
PROVIDERS: ATTEND Orthopaedic Surgery
DX: Z47.89 Encounter for other orthopedic aftercare (principal)

== ENCOUNTER → 2021-08-22 | Outpatient (CLI) | payer MEDICARE ==
[~2021-08-22] MED LIST changes: -LISI-898 PO; +LISI5TAB11 PO
== END ==
LOC: M SOG 08:41
PROVIDERS: ATTEND Orthopaedic Surgery
DX: Z47.1 Aftercare following joint replacement surgery (principal); Z96.641 Presence of right artificial hip joint; M16.11 Unilateral primary osteoarthritis, right hip

== ENCOUNTER → 2022-01-02 | Outpatient (CLI) | payer MEDICARE ==
[~2022-01-02] MED LIST changes: -D31000TA2 PO; +VITA100093 PO
== END ==
LOC: M ADAMS 10:38
PROVIDERS: ATTEND Urology
DX: C67.2 Malignant neoplasm of lateral wall of bladder (principal); Z12.5 Encounter for screening for malignant neoplasm of prostate; R97.20 Elevated prostate specific antigen [PSA]

== ENCOUNTER → 2022-02-25 | Outpatient (CLI) | payer MEDICARE | LOC: M SOG 13:07 | PROVIDERS: ATTEND Orthopaedic Surgery | DX: Z96.641 Presence of right artificial hip joint (principal) ==

== ENCOUNTER → 2022-05-02 | Outpatient (CLI) | payer MEDICARE ==
[~2022-05-02] MED LIST changes: +BAYE325T12 PO; +FURO40TA2 PO; +GALZ50CA PO; +LISI10TA22 PO
[2022-05-02 14:49] LABS: CREATININE, URINE 85.1 MG/DL; MALB URINE SIEMENS 5.3 MG/L; MAU/CREAT RATIO 6.2 MCG/MG (0.0-30.0)
[2022-05-02 15:16] LABS: BLOOD UREA NITROGEN 13 MG/DL (7-18); CARBON DIOXIDE LEVEL 27 MEQ/L (21-32); CHLORIDE LEVEL 105 MEQ/L (98-107); CHOLESTEROL LEVEL 151 MG/DL (<200); CHOLESTEROL RISK RATIO 3.511 (<5); CREATININE FOR GFR 0.83 MG/DL (0.70-1.30); GLOMERULAR FILTRATION RATE > 60.0 (>42); GLUCOSE, FASTING 165 MG/DL (70-100); HDL CHOLESTEROL 43 MG/DL (>40); LDL CHOLESTEROL 77 MG/DL (<100); NON-HDL-C 108 MG/DL; POTASSIUM SERUM 4.5 MEQ/L (3.5-5.1); SODIUM LEVEL 139 MEQ/L (136-145); TRIGLYCERIDES LEVEL 155 MG/DL (<150)
[2022-05-02 16:28] LABS: HEMOGLOBIN A1c 8.5 %
== END ==
LOC: M LABDRWAD 09:41
PROVIDERS: ATTEND Family Medicine
DX: E11.9 Type 2 diabetes mellitus without complications (principal)

== ENCOUNTER → 2022-05-02 | Outpatient (CLI) | payer MEDICARE | LOC: M LABSMTC 11:30 | PROVIDERS: ATTEND Anesthesiology | DX: Z01.812 Encounter for preprocedural laboratory examination (principal); Z20.822 Contact with and (suspected) exposure to COVID-19 ==

== ENCOUNTER 2022-05-07 10:31 | Day surgery (SDC) | payer MEDICARE ==
[~2022-05-07] VITALS: Ht 175.3 cm; Wt 111.1 kg
[~2022-05-07 10:31] MED LIST changes: +LIDOCAINE 2% 100MG/5ML SDV (FOR ANES.) As Ordered ONE; +NS 1,000 ML IV ONE; +propofoL 200 MG/20 ML VIAL As Ordered ONE
[2022-05-07 13:19] VITALS: BP 169/86
== END 2022-05-07 13:21 | disposition home or self-care (01) ==
LOC: M OPP 10:31
PROVIDERS: ATTEND Surgery
DX: Z86.010 Personal history of colon polyps (principal); K57.30 Diverticulosis of large intestine without perforation or abscess without bleeding; Z87.891 Personal history of nicotine dependence; Z79.02 Long term (current) use of antithrombotics/antiplatelets; Z79.1 Long term (current) use of non-steroidal anti-inflammatories (NSAID); Z79.82 Long term (current) use of aspirin; Z79.84 Long term (current) use of oral hypoglycemic drugs; Z79.899 Other long term (current) drug therapy; Z88.8 Allergy status to other drugs, medicaments and biological substances; E11.9 Type 2 diabetes mellitus without complications; I10 Essential (primary) hypertension; E78.00 Pure hypercholesterolemia, unspecified; N40.0 Benign prostatic hyperplasia without lower urinary tract symptoms; Z85.51 Personal history of malignant neoplasm of bladder; Z80.6 Family history of leukemia

== ENCOUNTER → 2022-07-30 | Outpatient (CLI) | payer MEDICARE ==
[~2022-07-30] MED LIST changes: -LIDOCAINE 2% 100MG/5ML SDV (FOR ANES.) As Ordered ONE; -NS 1,000 ML IV ONE; -propofoL 200 MG/20 ML VIAL As Ordered ONE
== END ==
LOC: M RAD 09:48
PROVIDERS: ATTEND Family Medicine
DX: Z13.6 Encounter for screening for cardiovascular disorders (principal)

== ENCOUNTER → 2022-08-26 | Outpatient (CLI) | payer MEDICARE | LOC: M RAD 12:57 | PROVIDERS: ATTEND Family Medicine | DX: Z87.891 Personal history of nicotine dependence (principal) ==

== ENCOUNTER → 2022-11-15 | Outpatient (CLI) | payer MEDICARE ==
[~2022-11-15] MED LIST changes: +FLUT50SP17 NARES; -FLUTISP NARES
== END ==
LOC: M RAD 13:18
PROVIDERS: ATTEND Physician Assistant
DX: N50.82 Scrotal pain (principal)

== ENCOUNTER → 2022-12-02 | Outpatient (CLI) | payer MEDICARE ==
[2022-12-02 18:17] LABS: BASO % 0.5 % (0.0-1.0); EOS # 0.2 10^3/uL (0.0-0.5); EOS % 3.1 % (0.0-3.0); HEMOGLOBIN 11.9 g/dl (13.5-17.5); LYMPH # 0.9 10^3/uL (1.5-5.0); MEAN CORPUSCULAR HEMOGLOBIN 26.6 pg (27.0-33.0); MEAN CORPUSCULAR HGB CONC 30.5 g/dl (32.0-36.5); MEAN CORPUSCULAR VOLUME 87.1 fl (80.0-96.0); MONO # 0.6 10^3/uL (0.0-0.8); MONO % 10.2 % (2.0-8.0); NEUTROPHILS # 4.1 10^3/uL (1.5-8.5); NEUTROPHILS % 69.7 % (36.0-66.0); PLATELET COUNT, AUTOMATED 375 10^3/uL (150-450); RED BLOOD COUNT 4.48 10^6/uL (4.30-6.10); WHITE BLOOD COUNT 5.9 10^3/uL (4.0-10.0)
[2022-12-02 18:20] LABS: LDH LACTATE DEHYDROGENASE 164 U/L (120-246)
[2022-12-02 18:21] LABS: ALBUMIN 3.6 G/DL (3.2-5.2); ALKALINE PHOSPHATASE 91 U/L (46-116); ALT/SGPT 38 U/L (7.0-40); AST/SGOT 8 U/L (<34); BILIRUBIN,TOTAL 0.3 MG/DL (0.3-1.2); BLOOD UREA NITROGEN 13 MG/DL (9-23); CALCIUM LEVEL 8.4 MG/DL (8.3-10.6); CARBON DIOXIDE LEVEL 29 MMOL/L (20-31); CHLORIDE LEVEL 103 MMOL/L (98-107); CREATININE FOR GFR 0.69 MG/DL (0.70-1.30); GLOMERULAR FILTRATION RATE > 60.0 (>42); GLUCOSE, FASTING 230 MG/DL (74-106); POTASSIUM SERUM 5.1 MMOL/L (3.5-5.1); SODIUM LEVEL 137 MMOL/L (136-145); TOTAL PROTEIN 6.5 G/DL (5.7-8.2)
[2022-12-05 16:09] LABS: AFP TUMOR TOTAL 1.3 ng/mL (0.0-8.4); HCG SERUM TUMOR MARKER QUANT < 1 mIU/mL (0-3)
== END ==
LOC: M LABDRWAD 11:52
PROVIDERS: ATTEND Physician Assistant
DX: D40.11 Neoplasm of uncertain behavior of right testis (principal); Z79.82 Long term (current) use of aspirin; Z79.84 Long term (current) use of oral hypoglycemic drugs

== ENCOUNTER → 2023-01-03 | Outpatient (REF) | payer MEDICARE | LOC: M LABDRWAD 16:05 | PROVIDERS: ATTEND Urology | DX: C67.2 Malignant neoplasm of lateral wall of bladder (principal); Z12.5 Encounter for screening for malignant neoplasm of prostate | CPT/HCPCS: 36415; G0103 ==

== ENCOUNTER → 2023-02-26 | Outpatient (CLI) | payer MEDICARE | LOC: M SOG 07:54 | PROVIDERS: ATTEND Orthopaedic Surgery | DX: Z96.641 Presence of right artificial hip joint (principal) ==

== ENCOUNTER → 2023-09-03 | Outpatient (REF) | payer MEDICARE ==
[~2023-09-03] MED LIST changes: -FLUT50SP17 NARES; +FLUTISP NARES; +GLIP5TAB17 PO; -GLIP5TAB8 PO
[2023-09-03 14:27] LABS: BASO % 0.3 % (0.0-1.0); EOS # 0.3 10^3/uL (0.0-0.5); EOS % 3.7 % (0.0-3.0); HEMATOCRIT 38.3 % (42.0-52.0); HEMOGLOBIN 12.3 g/dl (13.5-17.5); LYMPH # 1.3 10^3/uL (1.5-5.0); LYMPH % 18.6 % (24.0-44.0); MEAN CORPUSCULAR HEMOGLOBIN 28.2 pg (27.0-33.0); MEAN CORPUSCULAR HGB CONC 32.1 g/dl (32.0-36.5); MEAN CORPUSCULAR VOLUME 87.8 fl (80.0-96.0); MONO # 0.8 10^3/uL (0.0-0.8); NEUTROPHILS # 4.4 10^3/uL (1.5-8.5); PLATELET COUNT, AUTOMATED 302 10^3/uL (150-450); RED BLOOD COUNT 4.36 10^6/uL (4.30-6.10); WHITE BLOOD COUNT 6.8 10^3/uL (4.0-10.0)
[2023-09-03 14:32] LABS: HEMOGLOBIN A1c 10.1 % (4.0-6.0)
[2023-09-03 14:42] LABS: TOTAL IRON BINDING CAPACITY 399 UG/DL (250-425)
[2023-09-03 14:43] LABS: ALBUMIN 3.8 G/DL (3.2-5.2); ALKALINE PHOSPHATASE 91 U/L (46-116); ALT/SGPT 46 U/L (7.0-40); AST/SGOT 16 U/L (<34); BILIRUBIN,TOTAL 0.3 MG/DL (0.3-1.2); BLOOD UREA NITROGEN 12 MG/DL (9-23); CALCIUM LEVEL 8.6 MG/DL (8.3-10.6); CARBON DIOXIDE LEVEL 28 MMOL/L (20-31); CHLORIDE LEVEL 104 MMOL/L (98-107); CREATININE FOR GFR 0.68 MG/DL (0.70-1.30); GLOMERULAR FILTRATION RATE > 60.0 (>42); GLUCOSE, FASTING 236 MG/DL (74-106); IRON (FE) 27 UG/DL (65-175); PERCENT SATURATION 6.8 % (19.7-50.0); POTASSIUM SERUM 4.8 MMOL/L (3.5-5.1); SODIUM LEVEL 138 MMOL/L (136-145); TOTAL PROTEIN 6.4 G/DL (5.7-8.2)
== END ==
LOC: M SFHCLERA 10:41
PROVIDERS: ATTEND Family Medicine
DX: E11.9 Type 2 diabetes mellitus without complications (principal); D64.9 Anemia, unspecified

== ENCOUNTER → 2023-09-10 | Outpatient (CLI) | payer MEDICARE | LOC: M RAD 09:34 | PROVIDERS: ATTEND Family Medicine | DX: Z12.2 Encounter for screening for malignant neoplasm of respiratory organs (principal); F17.210 Nicotine dependence, cigarettes, uncomplicated ==

== ENCOUNTER → 2024-03-04 | Outpatient (REF) | payer MEDICARE ==
[2024-03-04 17:17] LABS: BASO % 0.1 % (0.0-1.0); EOS # 0.1 10^3/uL (0.0-0.5); HEMATOCRIT 39.6 % (42.0-52.0); LYMPH # 0.9 10^3/uL (1.5-5.0); LYMPH % 13.4 % (24.0-44.0); MEAN CORPUSCULAR HEMOGLOBIN 30.3 pg (27.0-33.0); MEAN CORPUSCULAR HGB CONC 32.8 g/dl (32.0-36.5); MEAN CORPUSCULAR VOLUME 92.3 fl (80.0-96.0); MONO # 0.7 10^3/uL (0.0-0.8); MONO % 10.1 % (2.0-8.0); NEUTROPHILS # 5.1 10^3/uL (1.5-8.5); NEUTROPHILS % 75.1 % (36.0-66.0); PLATELET COUNT, AUTOMATED 260 10^3/uL (150-450); RED BLOOD COUNT 4.29 10^6/uL (4.30-6.10); WHITE BLOOD COUNT 6.9 10^3/uL (4.0-10.0)
[2024-03-04 17:20] LABS: ALBUMIN 3.9 G/DL (3.2-5.2); ALKALINE PHOSPHATASE 85 U/L (46-116); ALT/SGPT 47 U/L (7.0-40); AST/SGOT 16 U/L (<34); BILIRUBIN,TOTAL 0.2 MG/DL (0.3-1.2); BLOOD UREA NITROGEN 17 MG/DL (9-23); CALCIUM LEVEL 9.4 MG/DL (8.3-10.6); CARBON DIOXIDE LEVEL 25 MMOL/L (20-31); CHLORIDE LEVEL 107 MMOL/L (98-107); CREATININE FOR GFR 0.67 MG/DL (0.70-1.30); GLOMERULAR FILTRATION RATE > 60.0 (>42); GLUCOSE, FASTING 111 MG/DL (74-106); IRON (FE) 45 UG/DL (65-175); POTASSIUM SERUM 4.3 MMOL/L (3.5-5.1); SODIUM LEVEL 139 MMOL/L (136-145); TOTAL IRON BINDING CAPACITY 409 UG/DL (250-425); TOTAL PROTEIN 6.6 G/DL (5.7-8.2)
[2024-03-04 17:24] LABS: FERRITIN 8.1 NG/ML (10.5-307.3)
[2024-03-04 17:32] LABS: HEMOGLOBIN A1c 7.7 % (4.0-6.0)
[2024-03-04 17:37] LABS: MALB URINE SIEMENS < 3.0 MG/L; MAU/CREAT RATIO 6.3 MCG/MG (0.0-30.0)
== END ==
LOC: M SFHCLERA 14:03
PROVIDERS: ATTEND Family Medicine
DX: E11.9 Type 2 diabetes mellitus without complications (principal); D64.9 Anemia, unspecified

== ENCOUNTER → 2024-05-31 | Outpatient (CLI) | payer MEDICARE | LOC: M SOG 08:00 | PROVIDERS: ATTEND Orthopaedic Surgery | DX: M25.551 Pain in right hip (principal); Z53.9 Procedure and treatment not carried out, unspecified reason ==

== ENCOUNTER → 2024-09-14 | Outpatient (CLI) | payer MEDICARE ==
[~2024-09-14] MED LIST changes: -BAYE325T12 PO; +BAYE325T2 PO
== END ==
LOC: M SOG 07:51
PROVIDERS: ATTEND Orthopaedic Surgery
DX: Z96.641 Presence of right artificial hip joint (principal); Z96.653 Presence of artificial knee joint, bilateral

== ENCOUNTER → 2024-09-29 | Outpatient (CLI) | payer MEDICARE | LOC: M PLAIMG 14:07 | PROVIDERS: ATTEND Orthopaedic Surgery | DX: M75.122 Complete rotator cuff tear or rupture of left shoulder, not specified as traumatic (principal) ==

== ENCOUNTER → 2024-11-15 | Outpatient (CLI) | payer MEDICARE ==
[~2024-11-15] MED LIST changes: -GALZ50CA PO; +ZINC50CA4 PO
[2024-11-15 12:56] LABS: BASO % 0.4 % (0.0-1.0); EOS # 0.3 10^3/uL (0.0-0.5); EOS % 3.1 % (0.0-3.0); HEMATOCRIT 37.3 % (42.0-52.0); LYMPH # 1.6 10^3/uL (1.5-5.0); LYMPH % 19.3 % (24.0-44.0); MEAN CORPUSCULAR HEMOGLOBIN 24.4 pg (27.0-33.0); MEAN CORPUSCULAR HGB CONC 29.5 g/dl (32.0-36.5); MEAN CORPUSCULAR VOLUME 82.7 fl (80.0-96.0); MONO # 0.9 10^3/uL (0.0-0.8); MONO % 11.4 % (2.0-8.0); NEUTROPHILS # 5.3 10^3/uL (1.5-8.5); NEUTROPHILS % 65.4 % (36.0-66.0); PLATELET COUNT, AUTOMATED 351 10^3/uL (150-450); RED BLOOD COUNT 4.51 10^6/uL (4.30-6.10); WHITE BLOOD COUNT 8.1 10^3/uL (4.0-10.0)
[2024-11-15 13:00] LABS: ALBUMIN 3.7 G/DL (3.2-5.2); ALKALINE PHOSPHATASE 83 U/L (40-129); ALT/SGPT 39 U/L (7.0-40); AST/SGOT 20 U/L (<34); BILIRUBIN,TOTAL 0.2 MG/DL (0.3-1.2); BLOOD UREA NITROGEN 19 MG/DL (9-23); C REACTIVE PROTEIN QUANTITATIV < 0.50 MG/DL (<1.0); CALCIUM LEVEL 9.5 MG/DL (8.3-10.6); CARBON DIOXIDE LEVEL 30 MMOL/L (20-31); CHLORIDE LEVEL 103 MMOL/L (98-107); CREATININE FOR GFR 0.78 MG/DL (0.70-1.30); GLOMERULAR FILTRATION RATE > 90.0 (>42); GLUCOSE, FASTING 104 MG/DL (74-106); INR 0.91; PROTHROMBIN TIME 12.6 SECONDS (12.5-14.5); SODIUM LEVEL 141 MMOL/L (136-145); TOTAL PROTEIN 6.5 G/DL (5.7-8.2)
[2024-11-15 13:10] LABS: ERYTHROCYTE SEDIMENTATION RATE 25 mm/hr (0-20)
[2024-11-15 14:15] LABS: HEMOGLOBIN A1c 7.6 % (4.0-6.0)
== END ==
LOC: M LABDRWAD 09:53
PROVIDERS: ATTEND Orthopaedic Surgery
DX: S46.022D Laceration of muscle(s) and tendon(s) of the rotator cuff of left shoulder, subsequent encounter (principal); M25.512 Pain in left shoulder; Z96.653 Presence of artificial knee joint, bilateral; Z79.899 Other long term (current) drug therapy; Z79.01 Long term (current) use of anticoagulants

== ENCOUNTER 2024-12-27 10:18 | Day surgery (SDC) | payer MEDICARE ==
[~2024-12-27] VITALS: Ht 175.3 cm; Wt 106.1 kg
[~2024-12-27 10:18] MED LIST changes: +CELE1CAP99 PO; +JARD1TAB PO
[2024-12-27] MEDS ORDERED: ONDANSETRON 4MG 2ML VIAL As Ordered ONE (11:01)
[2024-12-27] MEDS ORDERED: dexAMETHasone 4 MG/ML 1 ML VIAL As Ordered ONE (11:01)
[2024-12-27] MEDS ORDERED: LIDOCAINE 2% 100 MG/5 ML SDV (FOR ANES.) As Ordered ONE (11:02)
[2024-12-27] MEDS ORDERED: SUGAMMADEX SODIUM 500 MG/5 ML VIAL As Ordered ONE (11:02)
[2024-12-27] MEDS ORDERED: ROCURONIUM BROMIDE 50MG/5ML VIAL As Ordered ONE (11:02)
[2024-12-27] MEDS ORDERED: propofoL 200 MG/20 ML VIAL As Ordered ONE (11:02)
[2024-12-27] MEDS ORDERED: dexmedeTOMIDine (4 MCG/ML) 200 MCG/50 ML BTL As Ordered ONE (11:06)
[2024-12-27] MEDS ORDERED: fentaNYL 250 MCG/5 ML INJECTION As Ordered ONE (11:06)
[2024-12-27] MEDS ORDERED: LIDOCAINE 1% SDV 5 ML VIAL PN ONE (11:20)
[2024-12-27] MEDS ORDERED: fentaNYL 100 MCG/2 ML INJECTION IV PRN ×2 (11:20→16:05)
[2024-12-27] MEDS ORDERED: ROPIvacaine 0.5% 30ML VIAL PN ONE (11:20)
[2024-12-27] MEDS ORDERED: MIDAZOLAM INJ 2 MG/2 ML VIAL IV PRN (11:20)
[2024-12-27] MEDS ORDERED: EPINEPHrine INJ 1 MG/ML 1ML AMP PN ONE (11:20)
[2024-12-27] MEDS ORDERED: dexAMETHasone 10 MG/1 ML VIAL PRES.FREE PN ONE (11:20)
[2024-12-27] MEDS ORDERED: TRANEXAMIC ACID INJection 1,000 MG in NS 100 ML IV ONE (12:00)
[2024-12-27] MEDS: ceFAZolin SODIUM 2 GM VIAL As Ordered ONE (12:44)
[2024-12-27] MEDS: TRANEXAMIC ACID 100 MG/ML 10ML VIAL As Ordered ONE (12:57)
[2024-12-27] MEDS: ceFAZolin SOD 2 GM IV ONCE IV ONE (13:35)
[2024-12-27] MEDS: EPINEPHrine 1 MG/ML INJ 30 ML MD-VIAL As Ordered ONE (15:47)
[2024-12-27] MEDS ORDERED: ONDANSETRON 4MG 2ML VIAL IV PRN (16:05)
[2024-12-27] MEDS ORDERED: OXYC1TAB23 PO (16:07)
[2024-12-27] MEDS ORDERED: oxyCODONE 5MG TAB PO PRN (16:10)
[2024-12-27] MEDS ORDERED: HYDROMORPHONE HCL 0.5 MG/0.5 ML SYRINGE IV PRN (16:10)
[2024-12-27 16:40] VITALS: BP 111/53; TEMP 97; O2SAT 95
== END 2024-12-27 17:38 | disposition home or self-care (01) ==
LOC: M SDC 10:18
PROVIDERS: ATTEND Orthopaedic Surgery
DX: S46.012D Strain of muscle(s) and tendon(s) of the rotator cuff of left shoulder, subsequent encounter (principal); M25.512 Pain in left shoulder; I10 Essential (primary) hypertension; E78.5 Hyperlipidemia, unspecified; E11.9 Type 2 diabetes mellitus without complications; Z85.51 Personal history of malignant neoplasm of bladder; N40.0 Benign prostatic hyperplasia without lower urinary tract symptoms; Z79.84 Long term (current) use of oral hypoglycemic drugs; Z79.82 Long term (current) use of aspirin; Z79.899 Other long term (current) drug therapy; Z88.5 Allergy status to narcotic agent
CPT/HCPCS: 29823; 29827; C1713; J0171; J0690; J1100; J2405; J3010

== ENCOUNTER → 2025-02-07 | Outpatient (CLI) | payer MEDICARE ==
[~2025-02-07] MED LIST changes: -RA T500C2 PO; +TURM500C10 PO
== END ==
LOC: M SOG 07:02
PROVIDERS: ATTEND Orthopaedic Surgery
DX: M25.512 Pain in left shoulder (principal)

== ENCOUNTER → 2025-05-04 | Outpatient (REF) | payer MEDICARE ==
[2025-05-04 18:14] LABS: BASO # 0.0 10^3/uL (0.0-0.2); BASO % 0.4 % (0.0-1.0); EOS # 0.4 10^3/uL (0.0-0.5); EOS % 4.4 % (0.0-3.0); LYMPH # 1.5 10^3/uL (1.5-5.0); LYMPH % 18.7 % (24.0-44.0); MONO # 1.0 10^3/uL (0.0-0.8); MONO % 12.6 % (2.0-8.0); NEUTROPHILS # 5.0 10^3/uL (1.5-8.5); NEUTROPHILS % 63.4 % (36.0-66.0); PLATELET COUNT, AUTOMATED 406 10^3/uL (150-450)
[2025-05-04 18:18] LABS: IRON (FE) 14 UG/DL (65-175); PERCENT SATURATION 3.0 % (19.7-50.0)
[2025-05-04 18:19] LABS: ALT/SGPT 30 U/L (7.0-40); AST/SGOT 17 U/L (<34); CALCIUM LEVEL 9.1 MG/DL (8.3-10.6); CARBON DIOXIDE LEVEL 25 MMOL/L (20-31); CHLORIDE LEVEL 103 MMOL/L (98-107); CHOLESTEROL LEVEL 158 MG/DL (<200); CHOLESTEROL RISK RATIO 3.32 (<5); CREATININE FOR GFR 0.77 MG/DL (0.70-1.30); GLOMERULAR FILTRATION RATE > 90.0 (>42); LDL CHOLESTEROL 72.1 MG/DL (<100); NON-HDL-C 110.5 MG/DL; POTASSIUM SERUM 4.4 MMOL/L (3.5-5.1); SODIUM LEVEL 137 MMOL/L (136-145); TRIGLYCERIDES LEVEL 192 MG/DL (<150); VITAMIN B12 LEVEL 557 PG/ML (211-911)
[2025-05-04 18:33] LABS: ESTIMATED AVERAGE GLUCOSE 166.0 MG/DL (60-110)
== END ==
LOC: M SFHCLERA 14:53
PROVIDERS: ATTEND Family Medicine
DX: D64.9 Anemia, unspecified (principal); E11.9 Type 2 diabetes mellitus without complications; E78.2 Mixed hyperlipidemia

== ENCOUNTER → 2025-06-07 | Outpatient (CLI) | payer MEDICARE | LOC: M RAD 12:48 | PROVIDERS: ATTEND Family Medicine | DX: F17.210 Nicotine dependence, cigarettes, uncomplicated (principal) ==